=== PATIENT | male | born 1940 | race Caucasian/White ===

== ENCOUNTER → 2016-10-23 | Outpatient (CLI) | payer OTHER ==
[~2016-10-23] MED LIST: ADVIN25/60 INH; ASPCH81X PO; CEPH500C PO; DILT-115 PO; FRS/40 PO; GABA-113 PO; INSU70IN2 SC; IPRA1AER2 INH; LABE300T PO; MAGNESIUM PO; NTRGSL/4 UT; POTA10TA PO; SIMV40TA2 PO; SULF800T23 PO
[2016-10-23 15:01] LABS: BLOOD UREA NITROGEN 20 mg/dl (7-18); BUN/CREATININE RATIO 16.5 (10-20); CALCIUM 9.6 mg/dl (8.5-10.1); CARBON DIOXIDE 36 mmol/L (21-32); CHLORIDE 99 mmol/L (98-107); GLUCOSE 122 mg/dl (70-99); POTASSIUM 3.6 mmol/L (3.5-5.1); SODIUM 142 mmol/L (136-145)
[2016-10-23 15:06] LABS: ESTIMATED AVERAGE GLUCOSE 209 mg/dl; HA1C FLAG Normal (Normal)
== END | disposition home or self-care (01) ==
LOC: C.LABSPEC 14:38
PROVIDERS: ATTEND Internal Medicine
DX: E11.65 Type 2 diabetes mellitus with hyperglycemia (principal); I25.10 Atherosclerotic heart disease of native coronary artery without angina pectoris; I10 Essential (primary) hypertension

== ENCOUNTER → 2017-01-27 | Outpatient (CLI) | payer OTHER ==
[2017-01-27 12:45] LABS: HEMATOCRIT 44.4 % (42-52); MEAN CORPUSCULAR HEMOGLOBIN 28.3 pg (25-34); MEAN CORPUSCULAR HGB CONC 31.1 g/dl (32-36); MEAN PLATELET VOLUME 11.5 fL (7.4-10.4); PLATELET COUNT 231 K/uL (130-400); RED BLOOD COUNT 4.88 M/uL (4.7-6.1); WHITE BLOOD COUNT 8.29 K/uL (4.8-10.8)
[2017-01-27 13:04] LABS: ESTIMATED AVERAGE GLUCOSE 226 mg/dl; HA1C FLAG Normal (Normal)
[2017-01-27 13:41] LABS: ALT/SGPT 42 U/L (12-78); AST/SGOT 14 U/L (15-37); BLOOD UREA NITROGEN 17 mg/dl (7-18); CALCIUM 9.6 mg/dl (8.5-10.1); CARBON DIOXIDE 35 mmol/L (21-32); CHLORIDE 99 mmol/L (98-107); CHOLESTEROL 137 mg/dl (0-200); GLUCOSE 159 mg/dl (70-99); POTASSIUM 3.9 mmol/L (3.5-5.1); SODIUM 140 mmol/L (136-145); TRIGLYCERIDES 173 mg/dl (0-150); VERY LOW DENSITY LIPOPROT CALC 35 mg/dl
[2017-01-27 13:43] LABS: ALB/GLOB RATIO 0.9 (0.9-2); ALKALINE PHOSPHATASE 119 U/L (45-117); CHOLESTEROL/HDL RATIO 3.4; HDL CHOLESTEROL 40 mg/dl
== END | disposition home or self-care (01) ==
LOC: C.LABSPEC 12:25
PROVIDERS: ATTEND Internal Medicine
DX: I25.10 Atherosclerotic heart disease of native coronary artery without angina pectoris (principal); J44.9 Chronic obstructive pulmonary disease, unspecified; E11.65 Type 2 diabetes mellitus with hyperglycemia; E78.5 Hyperlipidemia, unspecified

== ENCOUNTER → 2017-03-12 | Outpatient (CLI) | payer OTHER ==
[2017-03-12 13:54] LABS: BLOOD UREA NITROGEN 35 mg/dl (7-18); BUN/CREATININE RATIO 23.5 (10-20); CALCIUM 9.7 mg/dl (8.5-10.1); CARBON DIOXIDE 33 mmol/L (21-32); CHLORIDE 94 mmol/L (98-107); GLUCOSE 427 mg/dl (70-99); SODIUM 135 mmol/L (136-145)
[2017-03-12 14:15] LABS: BETA-HYDROXYBUTYRATE 0.99 mg/dL (0.2-2.81)
== END | disposition home or self-care (01) ==
LOC: C.LABSPEC 12:21
PROVIDERS: ATTEND Internal Medicine
DX: R60.0 Localized edema (principal)

== ENCOUNTER → 2017-04-12 | Outpatient (CLI) | payer OTHER ==
[2017-04-12 18:28] LABS: HEMATOCRIT 43.2 % (42-52); MEAN CELL VOLUME 90.4 fL (80-100); MEAN CORPUSCULAR HEMOGLOBIN 27.8 pg (25-34); MEAN CORPUSCULAR HGB CONC 30.8 g/dl (32-36); MEAN PLATELET VOLUME 11.3 fL (7.4-10.4); PLATELET COUNT 255 K/uL (130-400); RED BLOOD COUNT 4.78 M/uL (4.7-6.1); WHITE BLOOD COUNT 8.58 K/uL (4.8-10.8)
[2017-04-12 18:33] LABS: BLOOD UREA NITROGEN 21 mg/dl (7-18); BUN/CREATININE RATIO 15.8 (10-20); CALCIUM 9.8 mg/dl (8.5-10.1); CARBON DIOXIDE 32 mmol/L (21-32); CHLORIDE 101 mmol/L (98-107); GLUCOSE 214 mg/dl (70-99); POTASSIUM 3.8 mmol/L (3.5-5.1); SODIUM 139 mmol/L (136-145)
[2017-04-12 18:34] LABS: INR 0.9 (0.9-1.1); PARTIAL THROMBOPLASTIN RATIO 1.1; PROTHROMBIN TIME (PATIENT) 10.1 SECONDS (9.0-12.0)
== END | disposition home or self-care (01) ==
LOC: C.LABSPEC 17:25
PROVIDERS: ATTEND Internal Medicine Interventional Cardiology
DX: Z01.818 Encounter for other preprocedural examination (principal)

== ENCOUNTER → 2017-04-20 | Outpatient (CLI) | payer OTHER ==
[~2017-04-20] MED LIST changes: -CEPH500C PO
--- NOTE | 2017-04-25 23:12 | PULMONARY FUNCTION TEST ---
SPIROMETRY Patient of Dr. Louis. Pre-bronchodilator spirometry reveals a severe obstructive ventilatory defect, even more pronounced with low lung volumes. There was no significant response to bronchodilator, but this should not preclude a therapeutic trial if clinically warranted. A concomitant restrictive ventilatory defect was also noted. Diffusion capacity when taken into account for the level of alveolar ventilation was well within normal limits. 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 Clinical correlation is needed. MTDD
== END | disposition home or self-care (01) ==
LOC: C.RC 10:40
PROVIDERS: ATTEND Internal Medicine Pulmonary Disease
DX: J44.9 Chronic obstructive pulmonary disease, unspecified (principal); R06.02 Shortness of breath; J98.4 Other disorders of lung

== ENCOUNTER → 2017-04-21 | Day surgery (SDC) | payer OTHER ==
[~2017-04-21] VITALS: Ht 181.6 cm; Wt 133.5 kg
[2017-04-21] VITALS (11 sets, daily range): BP systolic 119–136; BP diastolic 59–78; PULSE 48–65; TEMP 36.5–36.7; O2SAT 95–97; Ht 181.6 cm; Wt 133.5 kg
[~2017-04-21] MED LIST changes: +LIDOCAINE HCL 1% 20 ML VIAL INFIL ONE; +LIDOCAINE HCL 1% 20 ML VIAL ONE; +LIDOCAINE/EPINEPHRINE 1% INJ 50 ML VIAL ONE; +ORM MISCELLANEOUS MED XX ONE; +SODIUM CHLORIDE 0.9% 1000ML IV SCH
--- NOTE | 2017-04-21 09:58 | History & Physical Bridge Note ---
H&P Re-Evaluation Bridge Note: I have examined the patient, reviewed the History & Physical and in the interval since the performance of the History & Physical I have noted the following changes of clinical significance: No changes noted
--- NOTE | 2017-04-21 10:45 | Procedure Note ---
Pre-Mod Sedation Assessment General Date of Moderate Sedation: Apr 21, 2017. Vital Signs: Vital Signs Past 12 Hours Date Time Temp Pulse Resp B/P (MAP) Pulse Ox O2 Delivery O2 Flow Rate FiO2 04/21/17 09:59 36.7 60 22 136/70 (92) 97 Nasal Cannula 3 Review Cardiovascular: regular rate, rhythm, no edema Abdomen: normal bowel sounds, non tender Lungs: chest non-tender, lungs clear Airway Class: III Pre-Sedation Airway Assessment Oral Cavity: Dentures Able to Visualize Vocal Cords: No Short Thick Neck: Yes Hx of Sleep Apnea: No Smoking Status: Former Smoker Mallampati Classification: Class III ASA Classification: Class II Procedure Planning Contraindications-for Mod Sed: None Yes Notes The planned sedation has been discussed with the patient and consent obtained. I have identified the patient, determined the appropriateness of sedation and have assessed the patient immediately prior to the procedure. All medicine(s) and interventions are by my order.
--- NOTE | 2017-04-21 11:53 | Procedure Note ---
Post-Mod Sedation Assessment General Date of Moderate Sedation Apr 21, 2017. Vital Signs: Vital Signs Past 12 Hours Date Time Temp Pulse Resp B/P (MAP) Pulse Ox O2 Delivery O2 Flow Rate FiO2 04/21/17 11:50 52 20 121/71 96 Nasal Cannula 4.0 04/21/17 11:45 48 20 124/68 97 Nasal Cannula 4.0 04/21/17 11:40 53 17 133/78 95 Nasal Cannula 4.0 04/21/17 11:35 53 17 119/68 96 Nasal Cannula 4.0 04/21/17 11:30 51 18 121/59 97 Nasal Cannula 4.0 04/21/17 11:25 52 18 119/60 97 Nasal Cannula 4.0 04/21/17 11:20 50 16 123/62 96 Nasal Cannula 4.0 04/21/17 11:10 53 16 125/66 96 Nasal Cannula 4.0 04/21/17 10:55 36.7 60 22 136/70 97 Nasal Cannula 3.0 04/21/17 09:59 36.7 60 22 136/70 (92) 97 Nasal Cannula 3 Review - Discharge Criteria Vital Signs Stable: Yes Alert/Oriented/Conversant: Yes Returned to Baseline Mental St: Yes Nausea Absent/Minimal: Yes Pain/Discomfort/Absent/Minimal: Yes Normal/Baseline Respirations: Yes Active Bleeding?: No Pt Received D/C Instructions: Yes Prescriptions Given: None Specific Proced. D/C Criteria Distal Pulses Present (Cardiac: N/A Groin site assessed-Card Cath: N/A Voided Prior To Discharge: N/A Discharged Patients Adult Escort/Transportation: Yes
--- NOTE | 2017-04-21 11:56 | [facility] Operative Report ---
Operative Report Operative Date Apr 21, 2017. Pre-Operative Diagnosis Venous Insufficiency Post-Operative Diagnosis Same Procedure(s) Performed Right Leg Greater Saphenous Vein Radiofrequency Ablation Surgeon Jeyson Signing Teacher Surgeon(s) None Estimated Blood Loss 5 Findings Dilated right GSV Specimens None Drains None Anesthesia Local Complication(s) None Disposition Recovery Room / PACU Indications Venous insufficiency, Venous ulcers Description of Procedure US guided access Right GSV below the knee. Catheter inserted, 3cm from SFJ. Tumescent injected. US confirmed not in deep system. 4:20, 13 cycles of RFA right GSV. No complications. Patient tolerated well. US confirmed no DVT post procedure. I attest to the content of the Intraoperative Record and any orders documented therein. Any exceptions are noted below.
--- NOTE | 2017-04-21 12:00 | Discharge Instructions ---
Discharge Instructions Procedure Procedure Date: Apr 21, 2017. Reason for Visit: Venous Ulcer Right Leg. Discharge Discharge Date: Apr 21, 2017. Discharge Diagnosis: Venous insufficiency, Venous Ulcer Last Recorded Wt (Kilograms): 133.5 Anesthesia Post Anesthesia Instructions: If you have had General Anesthesia or IV Sedation: * Do not drive today. * Resume driving when surgeon permits. * Do not make important decisions or sign legal documents today. * Call surgeon for: 1. Temperature elevations greater than 101 degrees F. 2. Uncontrollable pain. 3. Excessive bleeding. 4. Persistent nausea and vomiting. 5. Medication intolerance (nausea, vomiting or rash). * For nausea and vomiting use only clear liquids such as: tea, soda, bouillon until nausea subsides, then gradually increase diet as tolerated. * If you have any concerns or questions, call your surgeon's office. If physician is unavailable and it is an emergency, call 911 or go to the nearest emergency room. Instructions Activity Recommendations: limitations as noted below Recommended Home Diet: resume previous diet Allergies: Coded Allergies: Penicillins (Verified Allergy, Unknown, RASH, 04/21/17) Follow Up Additional Instructions: Follow instructions as outlined in paperwork from Dr. Benítez' office. No change to current medications. ANGELA wrap until Wednesday or seen by wound clinic. Then resume prior wound clinic dressing and/or compression stockings. Follow up Ultrasound as scheduled. Any severe pain, present to the emergency room concerned about DVT. Follow-up with: As scheduled David Lipscomb Recommendations: Call your doctor if: * Temperature above 101 degrees * Pain not relieved by pain medicine ordered * There is increased drainage or redness from any incision * You have any unanswered questions or concerns. Your Doctors Instructions noted above were prepared by provider Ge Benítez. Patient Signature Section: Patient Instructions Signature Page Mario Munoz Patient (or Guardian) Signature/Date: I have read and understand the instructions given to me by my caregivers. Caregiver/RN/Doctor Signature/Date: The above-named patient and/or guardian has received patient instructions on this date. + Original Patient Signature Page (only) stays with chart. Please make copy for patient.
== END | disposition home or self-care (01) ==
LOC: C.ACU 09:09
PROVIDERS: ATTEND Internal Medicine Interventional Cardiology
DX: I87.2 Venous insufficiency (chronic) (peripheral) (principal); I87.8 Other specified disorders of veins; J44.9 Chronic obstructive pulmonary disease, unspecified; I27.2 Other secondary pulmonary hypertension; I10 Essential (primary) hypertension; I48.0 Paroxysmal atrial fibrillation; I25.10 Atherosclerotic heart disease of native coronary artery without angina pectoris; E11.9 Type 2 diabetes mellitus without complications; Z99.81 Dependence on supplemental oxygen; Z79.84 Long term (current) use of oral hypoglycemic drugs; Z87.891 Personal history of nicotine dependence; Z79.82 Long term (current) use of aspirin; Z79.899 Other long term (current) drug therapy; Z79.4 Long term (current) use of insulin

== ENCOUNTER → 2017-05-14 | Outpatient (CLI) | payer OTHER ==
[~2017-05-14] MED LIST changes: -LIDOCAINE HCL 1% 20 ML VIAL INFIL ONE; -LIDOCAINE HCL 1% 20 ML VIAL ONE; -LIDOCAINE/EPINEPHRINE 1% INJ 50 ML VIAL ONE; +OPTIRAY 320 IV PRN; -ORM MISCELLANEOUS MED XX ONE; -SODIUM CHLORIDE 0.9% 1000ML IV SCH; -SULF800T23 PO
--- NOTE | 2017-05-14 14:55 | DIAGNOSTIC IMAGING REPORT ---
CT OF THE CHEST WITH IV CONTRAST CLINICAL HISTORY: Chronic obstructive pulmonary disease. Pulmonary hypertension. COMPARISON STUDY: Chest CT December 01, 2014 and chest radiograph January 03, 2016. TECHNIQUE: Following IV administration of 93 mL of [id number]-[id number], helical axial images of the chest were obtained. Sagittal and coronal reconstructions were viewed as well as maximal intensity projections on an independent 3-D workstation. A dose lowering technique was utilized adhering to the principles of ALARA. CT DOSE: 741.99 mGycm FINDINGS: The heart is mildly enlarged. Extensive coronary artery calcification is present. There is no pericardial effusion. A large heavily calcified subcarinal lymph node is similar to prior exams. This results in severe narrowing of the right lower lobe bronchus which is unchanged. A small right pleural effusion with pleural thickening is likely chronic. This is similar to prior CT of December 01, 2014. A subpleural right lower lobe airspace opacity with volume loss is unchanged and reflects round atelectasis. Dense right pleural calcification is present. A trace left pleural effusion with left pleural thickening and associated calcifications is noted. This pleural effusion has decreased in size since exam of December 01, 2014. Linear left upper lobe opacities are consistent with scarring. There is no consolidation to suggest pneumonia. There are no suspicious pulmonary nodules. Bony thorax and upper abdomen are unremarkable. Note is made of bilateral gynecomastia. IMPRESSION: 1. Small right and trace left pleural effusions which are likely chronic. Right lower lobe subpleural opacity with volume loss consistent with round atelectasis. 2. No change in a large heavily calcified subcarinal lymph node which results in severe narrowing of the right lower lobe bronchus which is unchanged since prior exams. 3. Mild cardiomegaly and extensive coronary artery calcification. 4. No acute intrathoracic findings. Electronically signed by: Maikel Chen M.D. 05/14/2017 2:53 PM Dictated Date/Time: 05/14/2017 2:43 PM
== END | disposition home or self-care (01) ==
LOC: C.CTS 14:10
PROVIDERS: ATTEND Internal Medicine Pulmonary Disease
DX: J44.9 Chronic obstructive pulmonary disease, unspecified (principal); I27.20 Pulmonary hypertension, unspecified; J90 Pleural effusion, not elsewhere classified; R91.8 Other nonspecific abnormal finding of lung field; I51.7 Cardiomegaly

== ENCOUNTER → 2017-06-14 | Outpatient (CLI) | payer OTHER ==
[~2017-06-14] MED LIST changes: +DOXY100C76 PO; -IPRA1AER2 INH; -OPTIRAY 320 IV PRN
[2017-06-14 15:59] LABS: BLOOD UREA NITROGEN 29 mg/dl (7-18); BUN/CREATININE RATIO 21.2 (10-20); CALCIUM 10.2 mg/dl (8.5-10.1); CARBON DIOXIDE 39 mmol/L (21-32); CHLORIDE 91 mmol/L (98-107); CREATININE 1.35 mg/dl (0.60-1.40); GLUCOSE 273 mg/dl (70-99); POTASSIUM 3.2 mmol/L (3.5-5.1); SODIUM 137 mmol/L (136-145)
== END | disposition home or self-care (01) ==
LOC: C.LABSPEC 15:24
PROVIDERS: ATTEND Internal Medicine
DX: R60.0 Localized edema (principal)

== ENCOUNTER → 2017-08-25 | Outpatient (CLI) | payer OTHER ==
[2017-08-25 13:40] LABS: BASO % 0.5 %; BASO ABS # 0.04 K/uL (0-0.2); EOS % 4.5 %; EOS ABS # 0.38 K/uL (0-0.5); HEMATOCRIT 44.8 % (42-52); HEMOGLOBIN 14.1 g/dL (14.0-18.0); IG# 0.06 K/uL (0.00-0.02); LYMPH % 14.2 %; LYMPH ABS # 1.21 K/uL (1.2-3.4); MEAN CELL VOLUME 91.4 fL (80-100); MEAN CORPUSCULAR HEMOGLOBIN 28.8 pg (25-34); MEAN CORPUSCULAR HGB CONC 31.5 g/dl (32-36); MEAN PLATELET VOLUME 11.6 fL (7.4-10.4); MONO % 10.1 %; MONO ABS # 0.86 K/uL (0.11-0.59); NEUT ABS # 5.96 K/uL (1.4-6.5); PLATELET COUNT 222 K/uL (130-400); RED CELL DISTRIBUTION WIDTH CV 14.8 % (11.5-14.5); RED CELL DISTRIBUTION WIDTH SD 49.6 fL (36.4-46.3); WHITE BLOOD COUNT 8.51 K/uL (4.8-10.8)
[2017-08-25 13:55] LABS: HEMOGLOBIN A1C 9.8 % (4.5-5.6)
[2017-08-25 14:33] LABS: ALBUMIN 3.5 gm/dl (3.4-5.0); ALT/SGPT 25 U/L (12-78); AST/SGOT 16 U/L (15-37); BLOOD UREA NITROGEN 21 mg/dl (7-18); CARBON DIOXIDE 37 mmol/L (21-32); CREATININE 1.26 mg/dl (0.60-1.40); GLUCOSE 141 mg/dl (70-99); POTASSIUM 3.6 mmol/L (3.5-5.1); SODIUM 138 mmol/L (136-145)
[2017-08-25 14:37] LABS: ALKALINE PHOSPHATASE 99 U/L (45-117); CHOLESTEROL 126 mg/dl (0-200); LDL CHOLESTEROL (DIRECT) 70 mg/dl; TOTAL PROTEIN 7.8 gm/dl (6.4-8.2)
== END | disposition home or self-care (01) ==
LOC: C.LABSPEC 12:41
PROVIDERS: ATTEND Internal Medicine
DX: I25.10 Atherosclerotic heart disease of native coronary artery without angina pectoris (principal); I10 Essential (primary) hypertension; E78.5 Hyperlipidemia, unspecified; E11.65 Type 2 diabetes mellitus with hyperglycemia

== ENCOUNTER → 2017-11-04 | Outpatient (CLI) | payer OTHER | END | disposition home or self-care (01) | LOC: C.LAB 14:04 | PROVIDERS: ATTEND Internal Medicine Pulmonary Disease | DX: I51.9 Heart disease, unspecified (principal); J44.9 Chronic obstructive pulmonary disease, unspecified ==

== ENCOUNTER 2019-04-21 15:19 | Observation (INO) ==
[2019-04-21] MEDS ORDERED: SODIUM CHLORIDE 0.9% 1000ML 500 ML IV ONE (16:33)
--- NOTE | 2019-04-21 16:43 | XRay Report ---
XR chest 1V portable CLINICAL HISTORY: 78 years-old Male presenting with sob. TECHNIQUE: Portable upright AP view of the chest was obtained. COMPARISON: 07/27/2018. FINDINGS: Atherosclerosis of the aortic arch. Cardiac silhouette enlarged. Pulmonary vascular prominence simila r to prior exam. Scattered linear opacities may represent interstitial thickening. Vague added densit y in the mid to lower lungs. Trace pleural effusions may be present. No large pneumothorax. Degenerat aurea changes of the thoracic spine. Upper abdomen normal. IMPRESSION: 1. Cardiomegaly with volume overload and congestive change. 2. Mid to basilar added density is in part chronic and may represent scarring though developing pulm onary edema is difficult to exclude. 3. Trace bilateral pleural effusions. Electronically signed by: Alexis Diehl M.D. 04/21/2019 4:41 PM
[2019-04-21 17:43] LABS: Troponin I < 0.015 ng/ml (0-0.045)
[2019-04-21 18:07] LABS: Appearance Urine Clear (Clear); Bilirubin Urine Negative (Negative); Blood Urine Negative (Negative); Color Urine Yellow; Glucose Urine UA Negative (Negative); Ketones Urine Negative (Negative); Leukocyte Esterase Urine Negative (Negative); Nitrite Urine Negative (Negative); Protein Urine Negative (Negative); Specific Gravity Urine 1.012 (1.000-1.030); Urobilinogen Urine Negative (Negative); pH Urine 6.5 (4.5-7.5)
--- NOTE | 2019-04-21 18:15 | CT Scan Report ---
CT head/brain wo con CLINICAL HISTORY: 78 years-old Male presenting with slurred speech. TECHNIQUE: Multidetector CT imaging of the head was performed without the use of intravenous contrast . IV contrast: None. One or more dose lowering techniques were used consistent with the principles of ALARA (as low as reasonably achievable), including automatic exposure control, mA or kV adjustment t o individual patient size, and/or use of iterative reconstruction. COMPARISON: 01/05/2019. CT DOSE (mGy.cm): The estimated cumulative dose is 614.27 mGy.cm. 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 Ventricles and sulci normal in size. No hemorrhage. Brain parenchyma normal in appearance with preser dev mcnair-white differentiation. No acute territorial infarct. No mass effect or midline shift. No ext ra-axial fluid collection. Polypoid mucosal thickening in the right maxillary sinus. Calvarium intact . IMPRESSION: 1. No acute intracranial abnormality. Electronically signed by: Alexis Diehl M.D. 04/21/2019 6:13 PM
--- NOTE | 2019-04-21 19:45 | Emergency Department Note ---
Entered by Edith Abarca acting as a scribe for Trina Brar DO History of Present Illness General Chief complaint: Vertigo Stated complaint: WEAK Time Seen by Provider: 04/21/19 15:41 Source: patient and friends History of Present Illness Onset (ago): hour(s) (3) Location: head (general) Pain Consistency: + now resolved Quality: + other (confusion and trouble speaking) Associated symptoms: + denies other symptoms (diarrhea, numbness, tingling, ); no headaches and no nausea/vomiting The patient is a 78 year old male who presents to the Emergency Room with complaints of confusion and trouble speaking beginning 3 hours ago. The patient's friend states the patient was talking incoherently talking, slurring his speech, and jumping from one topic to another randomly. He states the patient's confusion and trouble speaking have mostly resolved. The patient reports shortness of breath and weakness in his extremities. He denies nausea, vomiting, diarrhea, numbness, tingling, and headache. The patient's friend st ates the patient had blood work done this morning that resulted in the patient not eating or taking his insulin as usual this morning. He states the patient ate and took his insulin after returning home. The patient's friend reports he then took the patient to the burn center to treat the patient's legs when the confusion and speaking problems began. He notes the burn center stated the patient's glucose was at 30, and they were able to very slowly raise it to 90. The patient's friend states the patient has a history of diabetes, but he has not been following his diet. He states the patient visited his PCP yesterday to change his insulin dosage. The patient's friend states the patient has excessive sweating during drops in blood sugar, but no nausea. The patient's friend notes the patient has a history of a-fib, and short term memory loss for the past year. The patient denies any history of stroke. Home Medications Home Medications Medication Instructions Recorded Confirmed Type aspirin 81 mg tablet,delayed 81 mg PO DAILY 07/20/18 04/21/19 History release diltiazem ER 240 mg capsule,24 240 mg PO DAILY 07/20/18 04/21/19 History hr,extended release furosemide 40 mg tablet 80 mg PO BID tab 07/20/18 04/21/19 History gabapentin 300 mg capsule 300 mg PO TID 07/20/18 04/21/19 History insulin human U-100 NPH-regulr 65 units SQ QPM ml 07/20/18 04/21/19 History 70-30 mix 100 unit/mL subcutaneous susp labetalol 300 mg tablet 300 mg PO BID 07/20/18 04/21/19 History potassium chloride ER 10 mEq 10 meq PO DAILY 07/20/18 04/21/19 History tablet,extended release simvastatin 40 mg tablet 40 mg PO QPM 07/20/18 04/21/19 History insulin human U-100 NPH-regulr 85 units SQ QAM ml 03/15/19 04/21/19 History 70-30 mix 100 unit/mL subcutaneous susp spironolactone 25 mg tablet 25 mg PO DAILY 03/15/19 04/21/19 History acetaminophen [Tylenol Extra 1,500 mg PO Q6H PRN 04/21/19 04/21/19 History Strength] Allergies Allergy/AdvReac Type Severity Reaction Status Date / Time Penicillins Allergy Unknown RASH Verified 04/21/19 18:08 Past Med/Surg History Medical History Chronic venous insufficiency (Chronic) Venous stasis ulcers of both lower extremities (Acute) IDDM (insulin dependent diabetes mellitus) (Chronic 09/19/13) Stenosis, spinal, lumbar (Chronic 09/19/13) Obesity (Chronic 09/19/13) Hypertension associated with diabetes (Chronic 09/19/13) 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) Hyperlipidemia (Chronic) New onset atrial fibrillation (Acute) Hypomagnesemia (Acute) CHF (congestive heart failure) (Resolved) Cardiac dysrhythmia (Acute) Deep vein thrombosis (Acute) Edema (Acute) Hypoxia (Acute) Pleural effusion, left (Acute) SOB (shortness of breath) (Acute) Arthritis (Chronic) COPD (chronic obstructive pulmonary disease) (Chronic) Diabetes (Chronic) H/O: pneumothorax (Chronic) Hypertension (Chronic) Other specified cardiac arrhythmias (Chronic) Surgical History History of back surgery (Resolved) H/O carpal tunnel repair (Resolved) History of shoulder surgery (Resolved) Previous back surgery (Resolved) Family History Other Diabetes Heart disease Hypertension Social History Preferred Language: [place] Communication Ability: Effective Visual Impairment: No Limitations Hearing Ability: Normal Bureau Director Required: No Beliefs That Will Affect Care: None marital status: Current Living Situation: Spouse current occupational status: retired Other Information That Helps Us Care for You: No Feels Safe at Home: Yes Safety Concerns: Feels Safe At This Time Smoking Status: Former smoker Do You Dip or Chew Tobacco: No ; Hx Alcohol Use: No Hx Substance Use: No Review of Systems See HPI for pertinent positives & negatives. and A total of 10 systems reviewed and were otherwise negative Physical Exam Vital Signs Vital Signs - 24 hr 04/21/19 15:31 04/21/19 15:49 04/21/19 16:00 Temperature 36.4 C L Temperature Source Oral Sepsis Recent Fever Within 48 Hours No Sepsis New/Unexplained Change in Mental Status Yes Sepsis Action Taken by Nursing No Action Required Pulse Rate 54 L 56 L 54 L Pulse Rate from SpO2 Sensor Respiratory Rate 20 17 18 Blood Pressure 109/59 L Blood Pressure Mean 75 Blood Pressure Position Sitting Pulse Oximetry 90 Oxygen Delivery Method Nasal Cannula Oxygen Flow Rate 4 04/21/19 16:30 04/21/19 17:00 04/21/19 17:30 Temperature Temperature Source Sepsis Recent Fever Within 48 Hours Sepsis New/Unexplained Change in Mental Status Sepsis Action Taken by Nursing Pulse Rate 55 L 54 L 54 L Pulse Rate from SpO2 Sensor Respiratory Rate 26 H 19 19 Blood Pressure Blood Pressure Mean Blood Pressure Position Pulse Oximetry Oxygen Delivery Method Oxygen Flow Rate 04/21/19 18:49 04/21/19 18:50 04/21/19 19:00 Temperature Temperature Source Sepsis Recent Fever Within 48 Hours Sepsis New/Unexplained Change in Mental Status Sepsis Action Taken by Nursing Pulse Rate 52 L 55 L 55 L Pulse Rate from SpO2 Sensor 55 L 53 L Respiratory Rate 20 16 21 Blood Pressure 124/68 135/62 Blood Pressure Mean 86 86 Blood Pressure Position Pulse Oximetry 85 L 85 L Oxygen Delivery Method Oxygen Flow Rate GENERAL: alert, well appearing, well nourished, no distress, non-toxic, obese EYE EXAM: normal conjunctiva, PERRL and EOM's grossly intact OROPHARYNX: no exudate, no erythema, lips, buccal mucosa, and tongue normal and mucous membranes are moist NECK: supple, no nuchal rigidity, no adenopathy, non-tender LUNGS: Clear to auscultation. Normal chest wall mechanics, no w/r/r HEART: no murmurs, S1 normal and S2 normal ABDOMEN: abdomen soft, non-tender, normo-active bowel sounds, no masses, no rebound or guarding. BACK: Back is symmetrical on inspection and there is no deformity, no midline tenderness, no CVA tenderness. SKIN: no rashes and no bruising UPPER EXTREMITIES: upper extremities are grossly normal. FROM, nml pulses b/l. LOWER EXTREMITIES: No pitting edema. Bilateral lower extremities with dressing and wraps in place from wound care. NEURO EXAM: No facial droop. NIH Stroke score of 0. Normal sensorium, cranial nerves II-XII grossly intact, normal speech, no gross weakness of arms, no gross weakness of legs. No drift. Finger to nose intact. Gross sensation intact. Course 1543: Past medical records reviewed. The patient was evaluated in room C03 by the medical student under my supervision. A complete history and physical exam was performed. 163: Past medical records reviewed. The patient was evaluated in room C03 by me. A complete history and physical exam was performed. 1829: Patient's blood sugar level dropped to the 40s. Patient was given some food and drink. 2002: Upon reevaluation, I discussed findings and results with the patient. The patient verbalized agreement of the treatment plan. I spoke with Dr. Toyin swenson of the [facility] Hospitalist Service. The patient will be evaluated for further management and care. Administered Medications Acetaminophen (Tylenol) 650 mg PO Q4H PRN PRN Reason: Pain or Fever Stop: 05/21/19 22:00 Last Admin: 04/22/19 05:50 Dose: 650 mg Documented by: [id number] Aspirin (Ecotrin Ectab) 81 mg PO DAILY [facility] Stop: 05/22/19 08:59 Last Admin: 04/22/19 08:04 Dose: 81 mg Documented by: [id number] Diltiazem HCl (Dilacor Xr) 240 mg PO DAILY [facility] Stop: 05/22/19 08:59 Last Admin: 04/22/19 08:05 Dose: 240 mg Documented by: [id number] Furosemide (Lasix) 80 mg PO BID [facility] Stop: 05/21/19 22:00 Last Admin: 04/22/19 20:27 Dose: 80 mg Documented by: [id number] Admin: 04/22/19 08:03 Dose: 80 mg Documented by: [id number] Admin: 04/21/19 23:23 Dose: 80 mg Documented by: [id number] Gabapentin (Neurontin) 300 mg PO TID [facility] Stop: 05/21/19 22:00 Last Admin: 04/22/19 20:28 Dose: 300 mg Documented by: [id number] Admin: 04/22/19 15:05 Dose: 300 mg Documented by: [id number] Admin: 04/22/19 08:04 Dose: 300 mg Documented by: [id number] Admin: 04/21/19 23:24 Dose: 300 mg Documented by: [id number] Heparin Sodium (Porcine) (Heparin Sodium (Porcine)) 5,000 units SQ Q8 [facility] Stop: 05/21/19 22:00 Last Admin: 04/22/19 21:39 Dose: 5,000 units Documented by: [id number] Cosigned by: [id number] Admin: 04/22/19 15:05 Dose: 5,000 units Documented by: [id number] Cosigned by: [id number] Admin: 04/22/19 05:44 Dose: 5,000 units Documented by: [id number] Cosigned by: [id number] Admin: 04/21/19 23:22 Dose: 5,000 units Documented by: [id number] Cosigned by: [id number] Insulin Aspart (Novolog Flexpen) 0 units SC ACHS [facility] Stop: 05/21/19 22:00 Last Admin: 04/22/19 20:26 Dose: 2 units Documented by: [id number] Cosigned by: [id number] Admin: 04/22/19 17:38 Dose: 7 units Documented by: [id number] Cosigned by: [id number] Admin: 04/22/19 12:08 Dose: 8 units Documented by: [id number] Cosigned by: [id number] Admin: 04/22/19 08:09 Dose: 2 units Documented by: [id number] Cosigned by: [id number] Admin: 04/21/19 23:27 Dose: Not Given Documented by: [id number] Cosigned by: [id number] Insulin Human NPH (Novolin N Nph) 17 units SC QDB [facility] Stop: 05/22/19 09:29 Last Admin: 04/22/19 10:00 Dose: 17 units Documented by: [id number] Cosigned by: [id number] Insulin Human NPH (Novolin N Nph) 0 units SC QDD [facility]; Protocol Stop: 05/22/19 16:29 Last Admin: 04/22/19 17:40 Dose: 17 units Documented by: [id number] Cosigned by: [id number] Labetalol HCl (Normodyne) 300 mg PO BID [facility] Stop: 05/21/19 22:00 Last Admin: 04/22/19 20:29 Dose: Not Given Documented by: [id number] Admin: 04/22/19 08:04 Dose: 300 mg Documented by: [id number] Admin: 04/21/19 23:26 Dose: Not Given Documented by: [id number] Potassium Chloride (Klor-Con M10) 10 meq PO DAILY [facility] Stop: 05/22/19 08:59 Last Admin: 04/22/19 08:03 Dose: 10 meq Documented by: [id number] Simvastatin (Zocor) 40 mg PO QPM [facility] Stop: 05/21/19 22:00 Last Admin: 04/22/19 20:31 Dose: 40 mg Documented by: [id number] Admin: 04/21/19 23:35 Dose: 40 mg Documented by: [id number] Spironolactone (Aldactone) 25 mg PO DAILY [facility] Stop: 05/22/19 08:59 Last Admin: 04/22/19 08:05 Dose: 25 mg Documented by: [id number] Discontinued Medications Sodium Chloride (Nss 1000ml) 500 mls @ 999 mls/hr IV .Q31M ONE Stop: 04/21/19 17:03 Last Infusion: 04/21/19 17:57 Dose: 0 mls/hr Documented by: [id number] Admin: 04/21/19 17:20 Dose: 999 mls/hr Documented by: [id number] Insulin Human Isoph/Insulin Regular (Novolin 70/30 Regular) 50 units SQ QDB [facility] Stop: 05/22/19 07:29 Last Admin: 04/22/19 07:58 Dose: Not Given Documented by: [id number] Medical Decision Making Differential Diagnosis Differential Diagnosis includes but is not limited to dehydration, stroke, anemia, hypoglycemia, hyponatremia, hypernatremia, urinary tract infection, pneumonia, bronchitis, sepsis, gastroenteritis, additional abdominal pathology, metabolic abnormalities and infections. Medical Records Attestation: I reviewed the patient's medical records. Home Medications Current Medication List: was personally reviewed by me Laboratory Data Attestation: I reviewed the patient's lab results. Result diagrams: 04/22/19 09:14 04/22/19 09:14 Lab Results 04/21/19 04/21/19 04/21/19 Range/Units 16:53 16:53 17:40 POC Glucose (70-99) Troponin I < 0.015 (0-0.045) ng/ml NT-Pro-B Natriuret Pep 343 (0-1800) pg/ml TSH 2.670 (0.300-4.500) uIu/ml Urine Color Yellow Urine Appearance Clear (Clear) Urine pH 6.5 (4.5-7.5) Ur Specific Ripton 1.012 (1.000-1.030) Urine Protein Negative (Negative) Urine Glucose (UA) Negative (Negative) Urine Ketones Negative (Negative) Urine Blood Negative (Negative) Urine Nitrite Negative (Negative) Urine Bilirubin Negative (Negative) Urine Urobilinogen Negative (Negative) Ur Leukocyte Esterase Negative (Negative) 04/21/19 04/21/19 04/21/19 Range/Units 18:18 18:20 19:13 POC Glucose 42 L* 41 L* 87 (70-99) Troponin I (0-0.045) ng/ml NT-Pro-B Natriuret Pep (0-1800) pg/ml TSH (0.300-4.500) uIu/ml Urine Color Urine Appearance (Clear) Urine pH (4.5-7.5) Ur Specific Ripton (1.000-1.030) Urine Protein (Negative) Urine Glucose (UA) (Negative) Urine Ketones (Negative) Urine Blood (Negative) Urine Nitrite (Negative) Urine Bilirubin (Negative) Urine Urobilinogen (Negative) Ur Leukocyte Esterase (Negative) Imaging Data Radiologist's Impression: Radiology results as stated below per my review and the radiologist's interpretation: XR chest 1V portable CLINICAL HISTORY: 78 years-old Male presenting with sob. TECHNIQUE: Portable upright AP view of the chest was obtained. COMPARISON: 07/27/2018. FINDINGS: Atherosclerosis of the aortic arch. Cardiac silhouette enlarged. Pulmonary vascular prominence similar to prior exam. Scattered linear opacities may represent interstitial thickening. Vague added density in the mid to lower lungs. Trace pleural effusions may be present. No large pneumothorax. Degenerative changes of the thoracic spine. Upper abdomen normal. IMPRESSION: 1. Cardiomegaly with volume overload and congestive change. 2. Mid to basilar added density is in part chronic and may represent scarring though developing pulmonary edema is difficult to exclude. 3. Trace bilateral pleural effusions. Electronically signed by: Alexis Diehl M.D. 04/21/2019 4:[address] head/brain wo con CLINICAL HISTORY: 78 years-old Male presenting with slurred speech. TECHNIQUE: Multidetector CT imaging of the head was performed without the use of intravenous contrast. IV contrast: None. One or more dose lowering techniques were used consistent with the principles of ALARA (as low as reasonably achievable), including automatic exposure control, mA or kV adjustment to individual patient size, and/or use of iterative reconstruction. COMPARISON: 01/05/2019. CT DOSE (mGy.cm): The estimated cumulative dose is 614.27 mGy.cm. FINDINGS: Program Management Manager topogram: Unremarkable. Ventricles and sulci normal in size. No hemorrhage. Brain parenchyma normal in appearance with preserved mcnair-white differentiation. No acute territorial infarct. No mass effect or midline shift. No extra-axial fluid collection. Polypoid mucosal thickening in the right maxillary sinus. Calvarium intact. IMPRESSION: 1. No acute intracranial abnormality. Electronically signed by: Alexis Diehl M.D. 04/21/2019 6:13 PM ECG Data Attestation: I personally reviewed and interpreted this ECG as follows: Indication: other (dizziness) Rate (beats per minute): 57 Rhythm: sinus bradycardia Findings: + other (normal axis, normal intervals, ); no PAC, no PVC, no acute ischemic change, no left axis deviation, no prolonged QT and no ectopy Blood Pressure Blood Pressure Findings: Elevated blood pressure Blood Pressure Disposition: further management by hospitalist [facility] Narrative Patient here following episode of confusion and dysarthria that did not seem to correlate with a previous episode of low blood sugar. Patient is a known diabetic and is noncompliant with a diabetic diet. No recent change in his insulin dosing. Friend at bedside states he does seem back to normal now, and has no prior history of stroke. Patient does have multiple risk factors for stroke. And had recurrent episodes of hypoglycemia while here in the emergency room. Patient's other labs reassuring, CT of the head unremarkable and patient remained hemodynamically stable. Patient had no focal neuro deficits here, no recurrence of confusion or dysarthria while here. Case discussed with hospitalist for additional evaluation and mgmt. No evidence of DKA/HHNK. I do not suspect occult infection at this time. Impression & Plan Hypoglycemia, Dysarthria, Transient confusion, Non-compliance Discharge Plan Visit Data *Final* Discharge Date/Time: 04/21/19 21:20 Chief Complaint: Vertigo Stated Complaint: WEAK ED Provider: Trina Brar Discharge Problem: Hypoglycemia, Dysarthria, Transient confusion, Non-compliance Patient Disposition: Admitted As Inpatient Condition: Fair Discharge Instructions Interventions: ED Discharge Assessment Last Done: 04/21/19 21:20 The scribe's documentation has been prepared under my direction and personally reviewed by me in its entirety. I confirm that the note above accurately reflects all work, treatment, procedures, and medical decision making performed by me.
[2019-04-21] MEDS ORDERED: MAGNESIUM HYDROXIDE SUSP 30 ML UDC PO PRN (22:01)
[2019-04-21] MEDS ORDERED: DEXTROSE 50% 50 ML SYRINGE IV PRN (22:01)
[2019-04-21] MEDS ORDERED: GLUCAGON FOR INJ 1 MG VIAL SQ PRN (22:01)
[2019-04-21] MEDS ORDERED: GLUCOSE 10 TABS/TUBE PO PRN (22:01)
[2019-04-21] MEDS ORDERED: ALUMINUM/MAGNESIUM SUSP 30 ML UDC PO PRN (22:01)
[2019-04-21] MEDS ORDERED: CARBOHYDRATES FOR HYPOGLYCEMIA PO PRN (22:01)
[2019-04-21] MEDS ORDERED: POLYETHYLENE (MIRALAX) 17 GM PACK PO PRN (22:01)
[2019-04-21] MEDS ORDERED: ACETAMINOPHEN 325 MG TAB PO PRN (22:01)
[2019-04-21] MEDS ORDERED: ONDANSETRON INJ 2 MG/ML 2 ML VIAL IV PRN (22:01)
[2019-04-21] MEDS ORDERED: GLUCOSE 40% GEL 15 GM TUBE PO PRN (22:01)
--- NOTE | 2019-04-21 22:11 | History & Physical Report ---
Date of Service April 21, 2019 Assessment & Plan (1) Transient confusion: Patient symptoms of confusion, slurred speech, etc. were likely related to hypoglycemia. Unclear at this time why his blood sugar remained as low as it did not to the 40s. He will have to be monitored closely as inpatient and outpatient verified correct administration of medications. Present on Admission?: Yes (2) Hypoglycemia: As above. Present on Admission?: Yes (3) IDDM (insulin dependent diabetes mellitus): We will adjust his current insulin dosing due to severe hypoglycemia he came into the hospital with. Decrease a.m. Novolin 70/30 to 50 units subcu and decrease dinnertime Novolin 70/30 to 40 units. Placed on Accu-Cheks before meals and at bedtime with NovoLog coverage per scale Check hemoglobin A1c Present on Admission?: Yes (4) Chronic venous insufficiency: Continue furosemide 80 mg p.o. twice daily Present on Admission?: Yes (5) Hyperlipidemia: Continue simvastatin 40 mg in evening Present on Admission?: Yes (6) Hypertension: Continue labetalol 300 mg p.o. twice daily, diltiazem CD 240 mg p.o. daily, Spironolactone 25 mg p.o. daily, Klor-Con 10 mEq daily and furosemide 80 mg p.o. twice daily. Present on Admission?: Yes (7) Peripheral neuropathy: Continue gabapentin 300 mg p.o. 3 times daily Present on Admission?: Yes (8) Asthma: Continue usual inhalers Present on Admission?: Yes History of Present Illness Chief Complaint: The patient presents to the emergency department with complaint of an episode of confusion and difficulty speaking that had resolved by the time of arrival to the ED. Primary Care Provider: Giorgio Louis MD The patient is a 78-year-old male who presents to the emergency department with complaint of confusion, difficulty speaking, talking incoherently with some slurring of speech that began about 3 hours prior to arrival. Per the ED staff, his symptoms were resolved by the time he arrived. The patient did also report that his breathing was somewhat more short of breath than his baseline. Allergies Allergy/AdvReac Type Severity Reaction Status Date / Time Penicillins Allergy Unknown RASH Verified 04/21/19 18:08 Home Medications Home Medications Medication Instructions Recorded Confirmed Type aspirin 81 mg tablet,delayed 81 mg PO DAILY 07/20/18 04/21/19 History release diltiazem ER 240 mg capsule,24 240 mg PO DAILY 07/20/18 04/21/19 History hr,extended release furosemide 40 mg tablet 80 mg PO BID tab 07/20/18 04/21/19 History gabapentin 300 mg capsule 300 mg PO TID 07/20/18 04/21/19 History insulin human U-100 NPH-regulr 65 units SQ QPM ml 07/20/18 04/21/19 History 70-30 mix 100 unit/mL subcutaneous susp labetalol 300 mg tablet 300 mg PO BID 07/20/18 04/21/19 History potassium chloride ER 10 mEq 10 meq PO DAILY 07/20/18 04/21/19 History tablet,extended release simvastatin 40 mg tablet 40 mg PO QPM 07/20/18 04/21/19 History insulin human U-100 NPH-regulr 85 units SQ QAM ml 03/15/19 04/21/19 History 70-30 mix 100 unit/mL subcutaneous susp spironolactone 25 mg tablet 25 mg PO DAILY 03/15/19 04/21/19 History acetaminophen [Tylenol Extra 1,500 mg PO Q6H PRN 04/21/19 04/21/19 History Strength] Past Med/Surg History Medical History Chronic venous insufficiency (Chronic) Venous stasis ulcers of both lower extremities (Acute) IDDM (insulin dependent diabetes mellitus) (Chronic 09/19/13) Stenosis, spinal, lumbar (Chronic 09/19/13) Obesity (Chronic 09/19/13) Hypertension associated with diabetes (Chronic 09/19/13) 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) Hyperlipidemia (Chronic) New onset atrial fibrillation (Acute) Hypomagnesemia (Acute) CHF (congestive heart failure) (Resolved) Cardiac dysrhythmia (Acute) Deep vein thrombosis (Acute) Edema (Acute) Hypoxia (Acute) Pleural effusion, left (Acute) SOB (shortness of breath) (Acute) Arthritis (Chronic) COPD (chronic obstructive pulmonary disease) (Chronic) Diabetes (Chronic) H/O: pneumothorax (Chronic) Hypertension (Chronic) Other specified cardiac arrhythmias (Chronic) Surgical History History of back surgery (Resolved) H/O carpal tunnel repair (Resolved) History of shoulder surgery (Resolved) Previous back surgery (Resolved) Family History Other Diabetes Heart disease Hypertension Social History Preferred Language: Armenian Communication Ability: Effective Visual Impairment: No Limitations Hearing Ability: Normal Director Visual Required: No Beliefs That Will Affect Care: None marital status: Current Living Situation: Spouse current occupational status: retired Other Information That Helps Us Care for You: No Feels Safe at Home: Yes Safety Concerns: Feels Safe At This Time Smoking Status: Former smoker Do You Dip or Chew Tobacco: No ; Hx Alcohol Use: No Hx Substance Use: No Review of Systems Review of Systems: The patient denies chest pain, palpitations, cough, lower extremity swelling, sore throat, fevers, chills, sweats,nausea, vomiting, diarrhea , constipation, abdominal pain, pelvic pain, blood in urine or stool, dysuria, urinary frequency or urgency, headache, loss of consciousness, imbalance, focal weakness, numbness or tingling in arms or legs, generalized arthralgias or myalgias, back or neck pain, or night sweats. The review of systems is otherwise negative other than for that already noted above, and at least 10 systems have been reviewed. Physical Exam Physical Exam: The patient is awake, alert and oriented 3, normocephalic and atraumatic, lying in bed and in no acute distress. HEENT--PERRL, EOMI, mucous membranes and oropharynx normal. Neck--supple. No JVD. No bruits. Thyroid normal, trachea midline, no adenopathy. Heart--normal S1 and S2. No murmurs, rubs or gallops. Lungs--decreased breath sounds throughout. Abdomen--normal bowel sounds and soft. Nontender. Nondistended. Morbidly obese Extremities--1+ bilateral pretibial pitting edema. Dermatologic--normal skin turgor, normal color, no abnormal lymph nodes, no rash. Neurologic--cranial nerves II through XII grossly intact. Rheumatologic--normal range of motion. Psychiatric--normal affect. Results & Data Vital Signs (Past 12 Hours) Vital Signs Temp Pulse Pulse Resp BP BP Pulse Ox 04/21/19 21:25 97.5 F L 77 18 142/71 H 98 04/21/19 20:31 54 L 13 145/71 H 94 04/21/19 20:30 59 L 20 04/21/19 20:00 116/57 L 97 04/21/19 19:30 125/55 L 95 04/21/19 19:00 55 L 21 135/62 85 L 04/21/19 18:50 55 L 16 124/68 85 L 04/21/19 18:49 52 L 20 04/21/19 17:30 54 L 19 04/21/19 17:00 54 L 19 04/21/19 16:30 55 L 26 H 04/21/19 16:00 54 L 18 04/21/19 15:49 56 L 17 04/21/19 15:31 97.5 F L 54 L 20 109/59 L 90 Laboratory Results Laboratory Results POC Glucose 109 (70-99) H 04/21/19 23:19 Troponin I < 0.015 ng/ml (0-0.045) 04/21/19 16:53 NT-Pro-B Natriuret Pep 343 pg/ml (0-1800) 04/21/19 16:53 TSH 2.670 uIu/ml (0.300-4.500) 04/21/19 16:53 Urine Color Yellow 04/21/19 17:40 Urine Appearance Clear (Clear) 04/21/19 17:40 Urine pH 6.5 (4.5-7.5) 04/21/19 17:40 Ur Specific [place] 1.012 (1.000-1.030) 04/21/19 17:40 Urine Protein Negative (Negative) 04/21/19 17:40 Urine Glucose (UA) Negative (Negative) 04/21/19 17:40 Urine Ketones Negative (Negative) 04/21/19 17:40 Urine Blood Negative (Negative) 04/21/19 17:40 Urine Nitrite Negative (Negative) 04/21/19 17:40 Urine Bilirubin Negative (Negative) 04/21/19 17:40 Urine Urobilinogen Negative (Negative) 04/21/19 17:40 Ur Leukocyte Esterase Negative (Negative) 04/21/19 17:40 Diagnostic Findings [facility], [place] [phone] XRay Report Patient: ANA MARÍA WATTERS Date: 04/21/19 MR#: [id number]: [address] [facility] Acct ID:[id number]: Date: [address] [place] [address] Zip: [place] [address] Age: 78Location: ED Sex: M Room/Bed: Att Phy:Diagnosis: WEAK Evy Phy: Giorgio Moncada M.D.Service Date: 04/21/19 Fam Phy:Interpreting Phy: Alexis Diehl MD Admit Phy: Ordering Phy: Trina Brar DO cc: ~ XR chest 1V portable CLINICAL HISTORY: 78 years-old Male presenting with sob. TECHNIQUE: Portable upright AP view of the chest was obtained. COMPARISON: 07/27/2018. FINDINGS: Atherosclerosis of the aortic arch. Cardiac silhouette enlarged. Pulmonary vascular prominence similar to prior exam. Scattered linear opacities may represent interstitial thickening. Vague added density in the mid to lower lungs. Trace pleural effusions may be present. No large pneumothorax. Degenerative changes of the thoracic spine. Upper abdomen normal. IMPRESSION: 1. Cardiomegaly with volume overload and congestive change. 2. Mid to basilar added density is in part chronic and may represent scarring though developing pulmonary edema is difficult to exclude. 3. Trace bilateral pleural effusions. Electronically signed by: Alexis Diehl M.D. 04/21/2019 4:41 PM [facility], [place] [phone] CT Scan Report Patient: ANA MARÍA WATTERS Date: 04/21/19 MR#: [id number]: [address] [facility] Acct ID:[id number]: Date: [address] [place] [address] Zip: [place] [address] Age: 78Location: ED Sex: M Room/Bed: Att Phy:Diagnosis: WEAK Evy Phy: Giorgio Moncada M.D.Service Date: 04/21/19 Fam Phy:Interpreting Phy: Alexis Diehl MD Admit Phy: Ordering Phy: Trina Brar DO cc: ~ CT head/brain wo con CLINICAL HISTORY: 78 years-old Male presenting with slurred speech. TECHNIQUE: Multidetector CT imaging of the head was performed without the use of intravenous contrast. IV contrast: None. One or more dose lowering techniques were used consistent with the principles of ALARA (as low as reasonably achievable), including automatic exposure control, mA or kV adjustment to individual patient size, and/or use of iterative reconstruction. COMPARISON: 01/05/2019. CT DOSE (mGy.cm): The estimated cumulative dose is 614.27 mGy.cm. FINDINGS: Telephone Information Clerk topogram: Unremarkable. Ventricles and sulci normal in size. No hemorrhage. Brain parenchyma normal in appearance with preserved mcnair-white differentiation. No acute territorial infarct. No mass effect or midline shift. No extra-axial fluid collection. Polypoid mucosal thickening in the right maxillary sinus. Calvarium intact. IMPRESSION: 1. No acute intracranial abnormality. Electronically signed by: Alexis Diehl M.D. 04/21/2019 6:13 PM Dictated: 04/21/191810 Transcribed: 04/21/191810 Code Status & VTE Plan Code Status Full code VTE Prophylaxis Plan VTE Prophylaxis will be ordered: Yes PG Care Time/CCT Total # of Minutes Spent Total Time Spent with Patient: Total time spent is greater than 50% in coordination of care (as documented) at patient's floor/unit and/or counseling patient:
[2019-04-21] MEDS: HEPARIN SOD 5,000 UNIT/0.5 ML VIAL SQ SCH (23:22)
[2019-04-21] MEDS: FUROSEMIDE 40 MG TAB PO SCH (23:23)
[2019-04-21] MEDS: GABAPENTIN 300 MG CAP PO SCH (23:24)
[2019-04-21] MEDS: LABETALOL HCL 300 MG TAB PO SCH (23:26)
[2019-04-21] MEDS: INSULIN ASPART 100 UNITS/ML 3 ML PEN SC SCH (23:27)
[2019-04-21] MEDS: SIMVASTATIN 40 MG TAB PO SCH (23:35)
[2019-04-22] MEDS: HEPARIN SOD 5,000 UNIT/0.5 ML VIAL SQ SCH ×3 (05:44→21:39)
[2019-04-22] MEDS ORDERED: INSULIN HUMAN 70% NPH/30% REGULAR SQ SCH ×2 (07:30→16:30)
[2019-04-22] MEDS: POTASSIUM CHLORIDE 10 MEQ TABCR PO SCH (08:03)
[2019-04-22] MEDS: FUROSEMIDE 40 MG TAB PO SCH ×2 (08:03→20:27)
[2019-04-22] MEDS: LABETALOL HCL 300 MG TAB PO SCH ×2 (08:04→20:29)
[2019-04-22] MEDS: ASPIRIN 81 MG ECTAB PO SCH (08:04)
[2019-04-22] MEDS: GABAPENTIN 300 MG CAP PO SCH ×3 (08:04→20:28)
[2019-04-22] MEDS: SPIRONOLACTONE 25 MG TAB PO SCH (08:05)
[2019-04-22] MEDS: INSULIN ASPART 100 UNITS/ML 3 ML PEN SC SCH ×4 (08:09→20:26)
[2019-04-22] MEDS ORDERED: PHARMACY GLYCEMIC MGMT CONSULT PRN (08:58)
[2019-04-22 09:25] LABS: Hematocrit (blood only) 40.5 % (42-52); Hemoglobin 12.3 g/dL (14.0-18.0); Mean Corpuscular Hemoglobin 27.6 pg (25-34); Mean Corpuscular Hgb Conc 30.4 g/dL (32-36); Mean Corpuscular Volume 90.8 fL (80-100); Mean Platelet Volume 10.8 fL (7.4-10.4); Platelet Count 200 K/uL (130-400); RDW Standard Deviation 53.1 fL (36.4-46.3); Red Blood Count 4.46 M/uL (4.7-6.1); White Blood Count 6.92 K/uL (4.8-10.8)
[2019-04-22] MEDS: INSULIN HUMAN NPH SC SCH (10:00)
[2019-04-22 10:02] LABS: BUN Creatinine Ratio 22.2 (10-20); Creatinine Clr Calc Pharmacy 72.8 ml/min; Est GFR (Non-African American) 56.1; Magnesium 2.5 mg/dl (1.8-2.4); Potassium 3.7 mmol/L (3.5-5.1)
[2019-04-22 11:21] LABS: Estimated Average Glucose 166 mg/dl; Hemoglobin A1C 7.4 % (4.5-5.6)
--- NOTE | 2019-04-22 14:39 | Pharmacy Report ---
Glycemic Control Consultation - Date of Service April 22, 2019 - Scope Scope: Glycemic Pharmacist consulted by Dr Castillo on 04/22/19 for glycemic control and to write orders per [facility] inpatient glycemic control protocol - Objective Weight: 140.8 kg Accuchecks BSG (last 24hrs): 04/21/19 04/21/19 04/21/19 18:18 18:20 19:13 Glucose POC Glucose 42 L* 41 L* 87 04/21/19 04/21/19 04/22/19 21:36 23:19 04:07 Glucose POC Glucose 74 109 H 101 H 04/22/19 04/22/19 04/22/19 07:45 09:14 11:36 Glucose 173 H POC Glucose 115 H 172 H Laboratory Data (last 24hrs): 04/22/19 09:14 Potassium 3.7 Carbon Dioxide 35 H Anion Gap 3.0 Creatinine 1.24 Est Cr Clr Drug Dosing 72.8 HbA1c: Hemoglobin A1c 7.4 % (4.5-5.6) H 04/22/19 09:14 - Recent Pertinent Medications Outpatient Anti-diabetic Regimen: * Novolin 70/30 -- 85 units in the morning and 65 units in the evening * A1c = 7.4 % 04/21/19 Risk Factors for Insulin Resistance: * Diet: T2DM - Assessment & Plan Assessment & Plan: ASSESSMENT: * Mr Munoz is a 78 y/o M with a PMH of T2DM who presents with AMS potentially from hypoglycemia. Patient has a reasonable HbA1C. Patient's blood sugar on admission was 42 mg/dL ... blood sugar did not rebound until this morning when fasting was 115 mg/dL. * Went and had indepth conversation with patient. Patient is managed by Dr Flood. Patient is not sure why is he on 70/30 insulin. The physician placed him on this many years ago and it hasn't changed. He said he does have insurance. Patient DOES NOT check his blood sugars at home. He reports that he has had hypoglycemia maybe twice where he has sweating occasions. However upon discussion with the patient I believe that he is unaware when he is having hypoglycemic episodes. He mentioned that sometimes his neighbor calls him in to stop him from working. This sounds like he may be acting funny or have some external symptom. * Patient is very very hesitant to change his regimen because he is worried abo ut how it will appear to his PCP. He asked about providers that specialize in insulin but then declined a referral to these providers. * Of note, the neighbor (Andrew) and him are starting to eat different. Focusing more on green leafy vegetables rather than [employer]. This (in reference to the new diet) is how the patient was eating the day he was admitted with a blood sugar of 42 mg/dL. * I am very concerned about the patient's regimen. Will continue with NPH at this point as I am not sure if this really is an insurance issue or if the patient could manage multiple administrations a day. Start with weight-based stress of 2 dosing in both NPH and Novolog. Will manage from here. * Of note the patient did feel funny (felt tired and heavy) when I was in the room with him so I had his blood sugar checked. It was ~200 mg/dL. PLAN FOR INPATIENT GLYCEMIC CONTROL: * Basal insulin * NPH 17 units SQ in morning and 14 units in the evening (17 units if blood sugar over 120 mg/dL) * Bolus insulin * NovoLog per scale ACHS or Q6hrs while NPO * Goal Range: Low 110 mg/dL - High 140 mg/dL * Correction Factor: 25 mg/dL/unit * Nutritional / Prandial insulin per carb ratio of 1 unit per 8 grams CHO consumed * Please note that the plan above was derived based on current level of insulin resistance and hospital stress. These recommendations are appropriate for inpatient admission only. Plan of care upon discharge will need to be reassessed to avoid potential outpatient hypo/hyperglycemia. Thank you.
[2019-04-22] MEDS ORDERED: INSULIN HUMAN NPH SC SCH (16:30)
--- NOTE | 2019-04-22 17:29 | Hospitalist Progress Note ---
Date of Service April 22, 2019 Assessment & Plan (1) Hypoglycemia: Likely due to dramatic change in diet with steady doses of insulin. He does not check his blood sugars at home because he reports he is "lazy." - Held all 70/30 insulin today - Sliding scale - Glycemic pharmacists - Hopefully will get a safe regimen for him with a more constant diabetic diet to give advice for home. (2) Transient confusion: Patient symptoms of confusion, slurred speech, etc. were likely related to hypoglycemia. - As above for hypoglycemia (3) IDDM (insulin dependent diabetes mellitus): A1c was 7.4%, so actually fairly well controlled at home. - See above for hypoglycemia - Will need adjustment of his regimen (4) Chronic venous insufficiency: Some swelling in the legs, but fairly steady per the patient. - Continue furosemide 80 mg p.o. twice daily (5) Hyperlipidemia: No muscle concerns. - Continue simvastatin 40 mg in evening (6) Hypertension: BP 135/70 today. Good for in the hospital. - Continue labetalol 300 mg p.o. twice daily, diltiazem CD 240 mg p.o. daily, Spironolactone 25 mg p.o. daily, Klor-Con 10 mEq daily and furosemide 80 mg p.o. twice daily. (7) Peripheral neuropathy: No complaints today. - Continue gabapentin 300 mg p.o. 3 times daily (8) Asthma: Reports no shortness of breath today. - Continue usual inhalers (9) DVT prophylaxis: Heparin 5000 units Q12h Subjective Feeling fairly well today, though definitely somewhat slow to respond. Reports he is eating better compared to before, and may be this is why his sugars are lower. Review of Systems Review of Systems: All systems reviewed & are unremarkable except as noted in HPI & below Physical Exam Constitutional: WD/WN, vitals as above + obese Eyes: EOM intact bilaterally; no conjunctival abnormality ENMT: external ear and nose normal, oropharynx normal Neck: trachea midline, no thyromegaly normal visual inspection Respiratory: normal respiratory effort, lungs clear to auscultation no respiratory distress Cardiovascular: RRR, no murmur, no edema Gastrointestinal (Abdomen): Inspection/Auscultation: abdomen normal to inspection; abdomen not distended Musculoskeletal: no cyanosis or clubbing, extremities motor strength 5/5 Skin: no rashes, warm and dry Neurologic: moves all extremities and awake Psychiatric: Orientation: alert, oriented to person and cooperative Results & Data Vital Signs (Past 12 Hours) Vital Signs Temp Pulse Pulse Resp BP BP Pulse Ox 04/22/19 16:20 36.9 C 64 20 133/68 94 04/22/19 15:23 60 04/22/19 11:18 36.6 C 65 16 113/64 92 04/22/19 07:56 36.6 C 67 20 137/75 93 04/22/19 07:30 58 L PG Care Time/CCT Total # of Minutes Spent Total Time Spent with Patient: Total time spent is greater than 50% in coordination of care (as documented) at patient's floor/unit and/or counseling patient:
[2019-04-22] MEDS: SIMVASTATIN 40 MG TAB PO SCH (20:31)
[2019-04-23] MEDS: HEPARIN SOD 5,000 UNIT/0.5 ML VIAL SQ SCH (05:51)
[2019-04-23 08:04] LABS: BUN Creatinine Ratio 19.5 (10-20); Calcium 9.1 mg/dl (8.5-10.1); Creatinine Clr Calc Pharmacy 63.6 ml/min; Est GFR (African American) 58.2; Est GFR (Non-African American) 50.2
[2019-04-23] MEDS: INSULIN HUMAN NPH SC SCH (08:12)
[2019-04-23] MEDS: INSULIN ASPART 100 UNITS/ML 3 ML PEN SC SCH ×2 (08:14→12:08)
[2019-04-23] MEDS: SPIRONOLACTONE 25 MG TAB PO SCH (08:16)
[2019-04-23] MEDS: GABAPENTIN 300 MG CAP PO SCH (08:16)
[2019-04-23] MEDS: FUROSEMIDE 40 MG TAB PO SCH (08:16)
[2019-04-23] MEDS: LABETALOL HCL 300 MG TAB PO SCH (08:16)
[2019-04-23] MEDS: POTASSIUM CHLORIDE 10 MEQ TABCR PO SCH (08:17)
[2019-04-23] MEDS: ASPIRIN 81 MG ECTAB PO SCH (08:18)
--- NOTE | 2019-04-23 10:44 | Pharmacy Report ---
Glycemic Control Progress Note - Date of Service April 23, 2019 - Scope Glycemic Pharmacist consulted for glycemic control to write orders per [facility] inpatient glycemic control protocol. - Objective Accuchecks BSG(last 24 hours):: 04/22/19 04/22/19 04/22/19 11:36 14:22 16:37 Glucose POC Glucose 172 H 201 H 184 H 04/23/19 04/23/19 07:16 07:45 Glucose 120 H POC Glucose 125 H HbA1c:: Hemoglobin A1c 7.4 % (4.5-5.6) H 04/22/19 09:14 - Recent Pertinent Medications The patient is currently receiving: * Basal insulin: NPH 17 units every 12 hours * Correctional Insulin: Novolog Correction per scale ACHS Goal Range: Low 110 mg/dL - High 140 mg/dL Correction Factor: 25 mg/dL/unit * Prandial insulin: Per carb ratio of 1 unit per 8 grams CHO consumed - Outpatient Anti-Diabetic Meds NPH 70/30 --- 85 UNITS DAILY AND 65 UNITS AT BEDTIME - Assessment & Plan ASSESSMENT: * See progress note from 04/22/19 for more background info, in short: * Pt receiving SQ basal bolus insulin regimen for hyperglycemia secondary to baseline DM (outpatient regimen on hold). * Patient is currently receiving an average of 53 units of insulin per day * 34 units of basal insulin * 19 units of prandial/correctional insulin * BSGs ranging 101 - 184 mg/dl over the past 24hrs * Changes needed to insulin regimen: * AM Fasting BSG = 125 mg/dl. This is in goal range for patient based on inpatient targets and co-morbidities. Therefore Basal insulin will be continued at this time. * Post-prandial BSGs are in range therefore no changes needed to CF/CR. * Total daily dose = ~55 units. PLAN FOR INPATIENT GLYCEMIC CONTROL: * Continuing NPH 17 units SQ BID * Continuing correction factor of 25 mg/dl/unit * Continuing carb ratio of 1 unit per 8 grams CHO consumed * Continuing goal range of Low 110 mg/dL - High 140 mg/dL RECOMMENDATIONS FOR DISCHARGE: * At this point and time, the patient required about 55 units yesterday. This would correlate with roughly 25 units twice daily of Novolin 70/30. * I have requested Sheila Oliver see the patient either Wednesday or Wednesday. He lacks significant education and if he is going to drastically change his diet I think it imperative that education be provided. * Please note that the plan above was derived based on current level of insulin resistance and hospital stress. These recommendations are appropriate for inpatient admission only. Plan of care upon discharge will need to be reassessed to avoid potential outpatient hypo/hyperglycemia. Thank you.
--- NOTE | 2019-04-23 15:46 | Discharge Summary ---
Date of Service April 23, 2019 Admission HPI Per Admitting Provider The patient is a 78-year-old male who presents to the emergency department with complaint of confusion, difficulty speaking, talking incoherently with some slurring of speech that began about 3 hours prior to arrival. Per the ED staff, his symptoms were resolved by the time he arrived. The patient did also report that his breathing was somewhat more short of breath than his baseline. Principal Diagnosis Hypoglycemia due to over administration of insulin. Discharge Exam Constitutional WD/WN, vitals as above + obese Eyes EOM intact bilaterally; no conjunctival abnormality ENMT external ear and nose normal, oropharynx normal Neck trachea midline, no thyromegaly normal visual inspection Respiratory normal respiratory effort, lungs clear to auscultation no respiratory distress Cardiovascular RRR, no murmur, no edema Gastrointestinal (Abdomen) Inspection/Auscultation: abdomen normal to inspection; abdomen not distended Musculoskeletal no cyanosis or clubbing, extremities motor strength 5/5 Skin no rashes, warm and dry Neurologic moves all extremities and awake Psychiatric Orientation: alert, oriented to person and cooperative Discharge Data Allergies Allergy/AdvReac Type Severity Reaction Status Date / Time Penicillins Allergy Unknown RASH Verified 04/21/19 18:08 Consultations 04/21/19 19:43 ED Decision to Admit Stat 04/21/19 22:01 Consult Case Management - Discharge Planning Routine Ordered Studies 04/21/19 16:31 CT head/brain wo con Stat Hospital Course (1) Hypoglycemia: Likely due to dramatic change in diet with steady dose of insulin. He does not check his blood sugars at home because he reports he is "lazy." - Held all 70/30 insulin initially - Discharged on 70/30 25 units BID. - Discussed with his and with their neighbor/shoe handler Zenon. Given his healthier eating habits, will likely need much lower dosing. Also set up home nursing for him as well as a script for new suppl ies for his fingersticks. (2) Transient confusion: Patient symptoms of confusion, slurred speech, etc. were likely related to hypoglycemia. - As above for hypoglycemia (3) IDDM (insulin dependent diabetes mellitus): A1c was 7.4%, so actually fairly well controlled at home. - See above for hypoglycemia - 25 units BID on discharge. (4) Chronic venous insufficiency: Some swelling in the legs, but fairly steady per the patient. [facility] [place]. - Continue furosemide 80 mg p.o. twice daily (5) Hyperlipidemia: No muscle concerns. - Continue simvastatin 40 mg in evening (6) Hypertension: BP 135/70 today. Good for in the hospital. - Continue labetalol 300 mg p.o. twice daily, diltiazem CD 240 mg p.o. daily, Spironolactone 25 mg p.o. daily, Klor-Con 10 mEq daily and furosemide 80 mg p.o. twice daily. (7) Peripheral neuropathy: No complaints today. - Continue gabapentin 300 mg p.o. 3 times daily (8) Asthma: Reports no shortness of breath today. - Continue usual inhalers (9) DVT prophylaxis: Heparin 5000 units Q12h Total Time Total Time Spent Total Time Spent (In Minutes): 35 Discharge Plan Discharge Items Patient Disposition: Home - Home Health Services Reason For Visit: HYPOGLYCEMIA Discharge Diagnosis: Low blood sugar from too high insulin usage Condition on Discharge: Fair Activity: Resume your previous activity Non-emergency contact: Primary Care Provider Call non-emergency contact if: your symptoms worsen Follow-up/Referrals: Giorgio Louis MD [Primary Care Provider] - (Please see Dr. Selam Stanley this week.) Diet: Carb Consistent or DM2 Addtl Attending Provider Instructions: Mr. Munoz, You were admitted to the hospital for a low blood sugar. We think this is because you took too much insulin and your diet changed, leading you to eat fewer sugars. We have lowered your insulin level to 25 units twice per day. Take it the same time as your regimen before. Please check your sugars before breakfast and 2 hours after 1 or 2 meals per day. We are arranging home nursing to help get this done. Take these numbers to Dr. Selam Stanley to help adjust your medication regimen. Pending Studies at Discharge: No Stand-Alone Forms: My [facility] [address] Medications and DC Order Prescriptions: Continued spironolactone 25 mg tablet 25 mg PO DAILY RF: 0 aspirin 81 mg tablet,delayed release (DR/EC) 81 mg PO DAILY RF: 0 diltiazem HCl 240 mg capsule,extended release 24 hr 240 mg PO DAILY RF: 0 furosemide 40 mg tablet 80 mg PO BID RF: 0 gabapentin 300 mg capsule 300 mg PO TID RF: 0 labetalol 300 mg tablet 300 mg PO BID RF: 0 potassium chloride 10 mEq tablet extended release 10 meq PO DAILY RF: 0 simvastatin 40 mg tablet 40 mg PO QPM RF: 0 [id number] [Trelegy Ellipta] 100-62.5-25 mcg blister with device 1 inh inhalation DAILY RF: 0 acetaminophen [Tylenol Extra Strength] 500 mg Tablet 1,500 mg PO Q6H PRN (Reason: Pain) RF: 0 Changed Novolin 70/30 U-100 Insulin 100 unit/mL (70-30) suspension 25 units SQ BID Qty: 0 RF: 0 Discontinued insulin NPH and regular human [Novolin 70/30 U-100 Insulin] 100 unit/mL (70- 30) suspension 65 units SQ QPM RF: 0 Discharge Orders: Discharge Order (Routine); Ordered 04/23/19 Ordered By: Darrius Nolan/Other Patient Handouts: Hyperglycemia, Hypoglycemia, Diabetes Healthy Meals Admission Data Admit Date/Time: 04/21/19 20:15 Attending Provider: Darrius Castillo Admit Provider: Eladio Lorenzana Primary Care Provider: Giorgio Louis Other Providers: Darrius Castillo ; Hospice,Family Other Interventions: Discharge Summary Assessment (RN) Last Done: 04/23/19 12:40 DC Date/Time DO NOT enter until pt leaves facility: 04/23/19 14:27
== END 2019-04-23 14:27 | disposition home health service (06) ==
LOC: 2W 15:19 → ED 15:19 → SUATTDRO 20:15 → 2W 21:20

== ENCOUNTER 2019-12-20 17:29 | Inpatient (IN) ==
[2019-12-20] MEDS ORDERED: SODIUM CHLORIDE 0.9% 1000ML 1,000 ML IV ONE ×2 (17:56→20:14)
--- NOTE | 2019-12-20 18:05 | Emergency Department Note ---
Impression & Plan Acute renal failure, Cellulitis of both lower extremities, Altered mental status, Heme positive stool ED Provider Note NAME: ANA MARÍA WATTERS AGE: 79 SEX: M ARRIVES VIA: Ambulance INFORMANT: Patient, ED PROVIDER(S): Emanuel Fernández MD CHIEF COMPLAINT: Confusion, weakness, black stool, leg wounds PLAN: Disposition: Admit MEDICAL DECISION MAKING: The patient is a pleasant 79-year-old gentleman with a past medical history of hypertension, hyperlipidemia, A. fib on Coumadin who presents emergency department for evaluation of worsening confusion, report of black stools over the past week and worsening bilateral lower extremity wounds in the setting of having a an accident with tractor equipment 4 days ago. Patient and friend deny fever, cough, vomiting, urinary symptoms. Deny exposures to individuals diagnosed with Covid19. On arrival the patient is ill-appearing but in no acute distress, afebrile with low blood pressure 80s/60s but alert to self and place with mild pleasant confusion. On exam the patient has erythema warmth and tenderness of bilateral lower legs in the pretibial region with the left pretibial region most severe with induration and ecchymosis of the wound. Distal PMS intact. Rectal exam demonstrates yellowish-brown stool that is scantly guaiac positive. There is no gross melena or hemorrhage. WBC and platelets within normal limits. H/H 13.6/41.5. Similar to prior range of values. VBG unremarkable. Chemistry without metabolic acidosis. Creatinine 3.05 representing acute renal failure. Magnesium 3.3 and phosphorus 5.3 and electrolytes otherwise unremarkable. Lactate within normal limits. LFTs unremarkable. Troponin negative/undetectable. CRP and ESR slightly elevated at 2.2 and 32, respectively. UA without convincing evidence of infection. Chest x-ray with bibasilar opacities most likely atelectasis. Plain films of the bilateral lower legs without osseous involvement. CT head negative for acute process. CT abdomen pelvis also negative for acute process. Given the johanne ent's exam findings in his lower extremities there is high suspicion for cellulitis and given his report of working outside with yard equipment will begin with broad spectrum treatment including cefepime and Flagyl as well as vancomycin. Case was discussed with Dr. Lorenzana, [facility] hospitalist, who will evaluate the patient for admission. Triage Nursing notes reviewed and agree them. Additional history obtained from friend and caregiver Prior medical records reviewed Vital Signs: reviewed and remarkable for no significant abnormalities Differential diagnosis: Infection, dehydration, metabolic abnormality, hypo/hyperglycemia, electrolyte disturbance, anemia, hypoxia, cardiac sources, intracerebral event, toxicologic, neurologic, as well as other pathologies. ER treatment provided: See below. Diagnostics interpreted by me: ECG: Normal sinus rhythm, 60 bpm, normal axis, no ectopy, no overt ST elevation or depression, QTC 446, QRS 114. Similar to April 21, 2019. Cardiac Monitoring: An order for continuous cardiac monitoring was placed and demonstrated normal sinus rhythm, 60 bpm, no ectopy. Laboratory studies: See below Imaging studies: See below Consultation(s): Case was discussed with Dr. Lorenzana, [facility] hospitalist, who will evaluate the patient for admission. HPI: The patient is a pleasant 79-year-old gentleman with a past medical history of hypertension, hyperlipidemia, A. fib on Coumadin who presents emergency department for evaluation of worsening confusion, report of black stools over the past week and worsening bilateral lower extremity wounds in the setting of having a an accident with tractor equipment 4 days ago. Patient and friend deny fever, cough, vomiting, urinary symptoms. Deny exposures to individuals diagnosed with Covid19. ROS: See above HPI for pertinent positives & negatives. A total of 10 systems reviewed and were otherwise negative. PAST MEDICAL HISTORY:See Below PAST SURGICAL HISTORY:See Below FAMILY HISTORY:See Below SOCIAL HISTORY:See Below HOME MEDICATIONS:See Below ALLERGIES:See Below VITALS:See Below PHYSICAL EXAMINATION: GENERAL: Awake, alert, ill-appearing, in no distress HENT: Normocephalic, atraumatic. Oropharynx with dry mucous membranes and otherwise unremarkable. EYES: Normal conjunctiva. Sclera non-icteric. NECK: Supple. No nuchal rigidity. FROM. No JVD. RESPIRATORY: Clear to auscultation. CARDIAC: Regular rate, normal rhythm. Extremities warm and well perfused. Pulses equal. ABDOMEN: Soft, non-distended. No tenderness to palpation. No rebound or guarding. No masses. RECTAL: Yellowish-brown stool that is scantly guaiac positive. There is no gross melena or hemorrhage. MUSCULOSKELETAL: Chest examination reveals no tenderness. The back is symmetrical on inspection without obvious abnormality. There is no CVA tenderness to palpation. No joint edema. LOWER EXTREMITIES: Calves are equal size bilaterally and non-tender. No edema. No discoloration. NEURO: Normal sensorium. No sensory or motor deficits noted. SKIN: Erythema warmth and tenderness of bilateral lower legs in the pretibial region with the left pretibial region most severe with induration and ecchymosis of the wound. Distal PMS intact. No rash or jaundice noted. ED COURSE: Critical Care: I have personally spent greater than 45 minutes of critical care time in the direct management of this patient. This includes bedside care, interpretation of diagnostic studies, and testing, discussion with consultants, patient, and family members, and other required patient management activities. This 45 minutes is in excess of all separately billable procedures. Emanuel Fernández MD Past Med/Surg History Medical History Arthritis (Chronic) Cardiac dysrhythmia (Acute) CHF (congestive heart failure) (Resolved) Chronic venous insufficiency (Chronic) COPD (chronic obstructive pulmonary disease) (Chronic) Deep vein thrombosis (Acute) Diabetes (Chronic) Edema (Acute) H/O: pneumothorax (Chronic) Hyperlipidemia (Chronic) Hypertension (Chronic) Hypertension associated with diabetes (Chronic 09/19/13) Hypomagnesemia (Acute) Hypoxia (Acute) IDDM (insulin dependent diabetes mellitus) (Chronic 09/19/13) New onset atrial fibrillation (Acute) Obesity (Chronic 09/19/13) Other specified cardiac arrhythmias (Chronic) Paroxysmal atrial fibrillation Pleural effusion, left (Acute) SOB (shortness of breath) (Acute) 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) Stenosis, spinal, lumbar (Chronic 09/19/13) Venous stasis ulcers of both lower extremities (Acute) Surgical History H/O carpal tunnel repair (Resolved) History of back surgery (Resolved) History of shoulder surgery (Resolved) Previous back surgery (Resolved) Family History Other Diabetes Heart disease Hypertension Social History Preferred Language: Swazi Communication Ability: Effective Visual Impairment: No Limitations Hearing Ability: Normal Senior Game Designer Required: No Beliefs That Will Affect Care: None marital status: Current Living Situation: Spouse current occupational status: retired Feels Safe at Home: Yes Smoking Status: Former smoker Hx Alcohol Use: No Hx Substance Use: No Allergies Allergies Allergy/AdvReac Type Severity Reaction Status Date / Time Penicillins Allergy Unknown RASH Verified 08/07/19 13:44 Home Meds Home Medications Medication Instructions Recorded Confirmed aspirin 81 mg tablet,delayed 81 mg PO DAILY 07/20/18 12/20/19 release diltiazem HCl 240 mg capsule,24 240 mg PO DAILY 07/20/18 12/20/19 hr,extended release furosemide 40 mg tablet 80 mg PO BID tab 07/20/18 12/20/19 gabapentin 300 mg capsule 300 mg PO TID 07/20/18 12/20/19 labetalol 300 mg tablet 300 mg PO BID 07/20/18 12/20/19 potassium chloride 10 mEq 10 meq PO DAILY 07/20/18 12/20/19 tablet,extended release simvastatin 40 mg tablet 40 mg PO QPM 07/20/18 12/20/19 spironolactone 25 mg tablet 25 mg PO DAILY 03/15/19 12/20/19 acetaminophen [Tylenol Extra 1,500 mg PO Q6H PRN 04/21/19 12/20/19 Strength] albuterol sulfate 90 mcg/actuation 2 puffs INHALATION Q4H PRN #1 gm 05/08/19 12/20/19 aerosol inhaler metoprolol tartrate 100 mg tablet 100 mg PO BID tab 05/08/19 12/20/19 nitroglycerin 0.6 mg sublingual 0.6 mg SL PRN PRN tab 05/08/19 12/20/19 tablet ipratropium-albuterol 3 ml INHALATION QID 12/20/19 12/20/19 metolazone 2.5 mg PO Q2D 12/20/19 12/20/19 Previous Rx's Medication Instructions Recorded Novolin 70/30 U-100 Insulin 25 units SQ BID #0 ml 04/23/19 Results & Data (ED) Vital Signs Vital Signs - 24 hr 12/20/19 17:29 12/20/19 18:00 12/20/19 18:25 Temperature 37.5 C Temperature Source Oral Pulse Rate 86 Pulse Rate [Apical] 86 92 H Pulse Rate from SpO2 Sensor 61 56 L Pulse Rhythm Regular Pulse Rhythm [Apical] Regular Regular Pulse Strength [Apical] Normal Normal Respiratory Rate 16 16 16 Respiratory Effort / Characteristics Non-Labored Spontaneous Non-Labored Spontaneous Respiratory Depth Normal Normal Respiratory Pattern Regular Regular Blood Pressure 84/54 L 92/53 L Blood Pressure [Right Arm] 84/54 L 92/53 L Blood Pressure Mean 64 63 Blood Pressure Mean [Right Arm] 64 66 Blood Pressure Position Lying Blood Pressure Position [Right Arm] Lying Lying Pulse Oximetry 94 95 94 Oxygen Delivery Method Room Air Room Air Sepsis Recent Fever Within 48 Hours No Sepsis New/Unexplained Change in Mental Status No Sepsis Action Taken by Nursing No Action Required 12/20/19 18:30 12/20/19 18:45 12/20/19 18:58 Temperature Temperature Source Pulse Rate 62 Pulse Rate [Apical] Pulse Rate from SpO2 Sensor 63 63 Pulse Rhythm Pulse Rhythm [Apical] Pulse Strength [Apical] Respiratory Rate Respiratory Effort / Characteristics Respiratory Depth Respiratory Pattern Blood Pressure 82/52 L 109/52 L Blood Pressure [Right Arm] Blood Pressure Mean 61 62 Blood Pressure Mean [Right Arm] Blood Pressure Position Blood Pressure Position [Right Arm] Pulse Oximetry 93 98 Oxygen Delivery Method Sepsis Recent Fever Within 48 Hours Sepsis New/Unexplained Change in Mental Status Sepsis Action Taken by Nursing 12/20/19 19:43 12/20/19 20:30 12/20/19 21:01 Temperature Temperature Source Pulse Rate 63 61 68 Pulse Rate [Apical] Pulse Rate from SpO2 Sensor 61 70 Pulse Rhythm Pulse Rhythm [Apical] Pulse Strength [Apical] Respiratory Rate 18 15 21 Respiratory Effort / Characteristics Respiratory Depth Respiratory Pattern Blood Pressure 94/58 L 91/54 L 104/62 Blood Pressure [Right Arm] Blood Pressure Mean 70 64 82 Blood Pressure Mean [Right Arm] Blood Pressure Position Blood Pressure Position [Right Arm] Pulse Oximetry 97 95 93 Oxygen Delivery Method Room Air Room Air Room Air Sepsis Recent Fever Within 48 Hours Sepsis New/Unexplained Change in Mental Status Sepsis Action Taken by Nursing 12/20/19 21:30 12/20/19 22:00 Temperature Temperature Source Pulse Rate 66 66 Pulse Rate [Apical] Pulse Rate from SpO2 Sensor 65 66 Pulse Rhythm Pulse Rhythm [Apical] Pulse Strength [Apical] Respiratory Rate 14 17 Respiratory Effort / Characteristics Respiratory Depth Respiratory Pattern Blood Pressure 103/60 101/53 L Blood Pressure [Right Arm] Blood Pressure Mean 71 64 Blood Pressure Mean [Right Arm] Blood Pressure Position Blood Pressure Position [Right Arm] Pulse Oximetry 91 90 Oxygen Delivery Method Room Air Room Air Sepsis Recent Fever Within 48 Hours Sepsis New/Unexplained Change in Mental Status Sepsis Action Taken by Nursing Laboratory Data Attestation: I reviewed the patient's lab results. Result diagrams: 12/20/19 17:11 12/20/19 17:11 Lab Results 12/20/19 12/20/19 12/20/19 Range/Units 17:11 17:11 17:11 WBC 7.06 (4.8-10.8) K/uL RBC 4.51 L (4.7-6.1) M/uL Hgb 13.6 L (14.0-18.0) g/dL Hct 41.5 L (42-52) % MCV 92.0 (80-100) fL MCH 30.2 (25-34) pg MCHC 32.8 (32-36) g/dL RDW Std Deviation 54.3 H (36.4-46.3) fL RDW Coeff of Woo 16.2 H (11.5-14.5) % Plt Count (130-400) K/uL MPV (7.4-10.4) fL Immature Gran % (Auto) 0.6 % Neut % (Auto) 69.0 % Lymph % (Auto) 17.6 % Charles % (Auto) 9.3 % Eos % (Auto) 3.1 % Baso % (Auto) 0.4 % Immature Gran # (Auto) 0.04 H (0.00-0.02) K/uL Neut # (Auto) 4.87 (1.4-6.5) K/uL Lymph # (Auto) 1.24 (1.2-3.4) K/uL Charles # (Auto) 0.66 H (0.11-0.59) K/uL Eos # (Auto) 0.22 (0-0.5) K/uL Baso # (Auto) 0.03 (0-0.2) K/uL ESR (0-14) mm/hr PT 10.6 (9.0-12.0) Seconds INR 1.0 (0.9-1.1) APTT 24.4 (21.0-31.0) Seconds PTT Ratio 0.9 VBG pH (7.36-7.41) VBG pCO2 (38-50) mmHg VBG pO2 mmHg VBG HCO3 mmol/L VBG O2 Saturation % VBG Base Excess mEq/L Barometric Pressure mm/Hg Sodium (136-145) mmol/L Potassium (3.5-5.1) mmol/L Chloride (98-107) mmol/L Carbon Dioxide (21-32) mmol/L Anion Gap (3-11) BUN (7-18) mg/dl Creatinine (0.6-1.4) mg/dl Est Cr Clr Drug Dosing ml/min Est GFR ( Amer) Est GFR (Non-Af Amer) BUN/Creatinine Ratio (10-20) Glucose (70-99) mg/dl Lactate (0.4-2.0) mmol/L Calcium (8.5-10.1) mg/dl Phosphorus (2.5-4.9) mg/dl Magnesium (1.8-2.4) mg/dl Total Bilirubin (0.2-1) mg/dl Direct Bilirubin (0-0.2) mg/dl AST (15-37) U/L ALT (12-78) U/L Alkaline Phosphatase (45-117) U/L Total Creatine Kinase (39-308) U/L Troponin I (0-0.045) ng/ml C-Reactive Protein (0-0.29) mg/dl Total Protein (6.4-8.2) gm/dl Albumin (3.4-5.0) gm/dl Globulin (2.5-4.0) gm/dl Albumin/Globulin Ratio (0.9-2) Procalcitonin 0.11 (0-0.5) ng/ml TSH (0.300-4.500) uIu/ml Urine Color Urine Appearance (Clear) Urine pH (4.5-7.5) Ur Specific [place] (1.000-1.030) Urine Protein (Negative) Urine Glucose (UA) (Negative) Urine Ketones (Negative) Urine Blood (Negative) Urine Nitrite (Negative) Urine Bilirubin (Negative) Urine Urobilinogen (Negative) Ur Leukocyte Esterase (Negative) Urine WBC (Auto) (0-5) /hpf Urine RBC (Auto) (0-4) /hpf U Hyaline Cast (Auto) (0-5) /lpf U Epithel Cells (Auto) (0-5) /lpf Urine Bacteria (Auto) (Negative) Ethyl Alcohol mg/dL (0-3) mg/dl Blood Type Antibody Screen 12/20/19 12/20/19 12/20/19 Range/Units 17:11 17:11 18:20 WBC (4.8-10.8) K/uL RBC (4.7-6.1) M/uL Hgb (14.0-18.0) g/dL Hct (42-52) % MCV (80-100) fL MCH (25-34) pg MCHC (32-36) g/dL RDW Std Deviation (36.4-46.3) fL RDW Coeff of Woo (11.5-14.5) % Plt Count (130-400) K/uL MPV (7.4-10.4) fL Immature Gran % (Auto) % Neut % (Auto) % Lymph % (Auto) % Charles % (Auto) % Eos % (Auto) % Baso % (Auto) % Immature Gran # (Auto) (0.00-0.02) K/uL Neut # (Auto) (1.4-6.5) K/uL Lymph # (Auto) (1.2-3.4) K/uL Charles # (Auto) (0.11-0.59) K/uL Eos # (Auto) (0-0.5) K/uL Baso # (Auto) (0-0.2) K/uL ESR 32 H (0-14) mm/hr PT (9.0-12.0) Seconds INR (0.9-1.1) APTT (21.0-31.0) Seconds PTT Ratio VBG pH (7.36-7.41) VBG pCO2 (38-50) mmHg VBG pO2 mmHg VBG HCO3 mmol/L VBG O2 Saturation % VBG Base Excess mEq/L Barometric Pressure mm/Hg Sodium 135 L (136-145) mmol/L Potassium 5.1 (3.5-5.1) mmol/L Chloride 97 L (98-107) mmol/L Carbon Dioxide 28 (21-32) mmol/L Anion Gap 10.0 (3-11) BUN 80 H (7-18) mg/dl Creatinine 3.05 H (0.6-1.4) mg/dl Est Cr Clr Drug Dosing 24.6 ml/min Est GFR ( Amer) 21.8 Est GFR (Non-Af Amer) 18.8 BUN/Creatinine Ratio 26.3 H (10-20) Glucose 130 H (70-99) mg/dl Lactate (0.4-2.0) mmol/L Calcium 9.2 (8.5-10.1) mg/dl Phosphorus 5.3 H (2.5-4.9) mg/dl Magnesium 3.3 H (1.8-2.4) mg/dl Total Bilirubin 0.2 (0.2-1) mg/dl Direct Bilirubin < 0.1 (0-0.2) mg/dl AST 17 (15-37) U/L ALT 17 (12-78) U/L Alkaline Phosphatase 104 (45-117) U/L Total Creatine Kinase 83 (39-308) U/L Troponin I < 0.015 (0-0.045) ng/ml C-Reactive Protein 2.27 H (0-0.29) mg/dl Total Protein 6.8 (6.4-8.2) gm/dl Albumin 3.1 L (3.4-5.0) gm/dl Globulin 3.7 (2.5-4.0) gm/dl Albumin/Globulin Ratio 0.8 L (0.9-2) Procalcitonin (0-0.5) ng/ml TSH 1.480 (0.300-4.500) uIu/ml Urine Color Urine Appearance (Clear) Urine pH (4.5-7.5) Ur Specific [place] (1.000-1.030) Urine Protein (Negative) Urine Glucose (UA) (Negative) Urine Ketones (Negative) Urine Blood (Negative) Urine Nitrite (Negative) Urine Bilirubin (Negative) Urine Urobilinogen (Negative) Ur Leukocyte Esterase (Negative) Urine WBC (Auto) (0-5) /hpf Urine RBC (Auto) (0-4) /hpf U Hyaline Cast (Auto) (0-5) /lpf U Epithel Cells (Auto) (0-5) /lpf Urine Bacteria (Auto) (Negative) Ethyl Alcohol mg/dL (0-3) mg/dl Blood Type A Positive Antibody Screen NEGATIVE 12/20/19 12/20/19 12/20/19 Range/Units 18:20 18:20 18:20 WBC (4.8-10.8) K/uL RBC (4.7-6.1) M/uL Hgb (14.0-18.0) g/dL Hct (42-52) % MCV (80-100) fL MCH (25-34) pg MCHC (32-36) g/dL RDW Std Deviation (36.4-46.3) fL RDW Coeff of Woo (11.5-14.5) % Plt Count (130-400) K/uL MPV (7.4-10.4) fL Immature Gran % (Auto) % Neut % (Auto) % Lymph % (Auto) % Charles % (Auto) % Eos % (Auto) % Baso % (Auto) % Immature Gran # (Auto) (0.00-0.02) K/uL Neut # (Auto) (1.4-6.5) K/uL Lymph # (Auto) (1.2-3.4) K/uL Charles # (Auto) (0.11-0.59) K/uL Eos # (Auto) (0-0.5) K/uL Baso # (Auto) (0-0.2) K/uL ESR (0-14) mm/hr PT (9.0-12.0) Seconds INR (0.9-1.1) APTT (21.0-31.0) Seconds PTT Ratio VBG pH 7.34 L (7.36-7.41) VBG pCO2 62 H (38-50) mmHg VBG pO2 25 mmHg VBG HCO3 33 mmol/L VBG O2 Saturation < 60.0 % VBG Base Excess 5.3 mEq/L Barometric Pressure 739.8 mm/Hg Sodium (136-145) mmol/L Potassium (3.5-5.1) mmol/L Chloride (98-107) mmol/L Carbon Dioxide (21-32) mmol/L Anion Gap (3-11) BUN (7-18) mg/dl Creatinine (0.6-1.4) mg/dl Est Cr Clr Drug Dosing ml/min Est GFR ( Amer) Est GFR (Non-Af Amer) BUN/Creatinine Ratio (10-20) Glucose (70-99) mg/dl Lactate 0.9 (0.4-2.0) mmol/L Calcium (8.5-10.1) mg/dl Phosphorus (2.5-4.9) mg/dl Magnesium (1.8-2.4) mg/dl Total Bilirubin (0.2-1) mg/dl Direct Bilirubin (0-0.2) mg/dl AST (15-37) U/L ALT (12-78) U/L Alkaline Phosphatase (45-117) U/L Total Creatine Kinase (39-308) U/L Troponin I (0-0.045) ng/ml C-Reactive Protein (0-0.29) mg/dl Total Protein (6.4-8.2) gm/dl Albumin (3.4-5.0) gm/dl Globulin (2.5-4.0) gm/dl Albumin/Globulin Ratio (0.9-2) Procalcitonin (0-0.5) ng/ml TSH (0.300-4.500) uIu/ml Urine Color Urine Appearance (Clear) Urine pH (4.5-7.5) Ur Specific [place] (1.000-1.030) Urine Protein (Negative) Urine Glucose (UA) (Negative) Urine Ketones (Negative) Urine Blood (Negative) Urine Nitrite (Negative) Urine Bilirubin (Negative) Urine Urobilinogen (Negative) Ur Leukocyte Esterase (Negative) Urine WBC (Auto) (0-5) /hpf Urine RBC (Auto) (0-4) /hpf U Hyaline Cast (Auto) (0-5) /lpf U Epithel Cells (Auto) (0-5) /lpf Urine Bacteria (Auto) (Negative) Ethyl Alcohol mg/dL < 3.0 (0-3) mg/dl Blood Type Antibody Screen 12/20/19 Range/Units 19:47 WBC (4.8-10.8) K/uL RBC (4.7-6.1) M/uL Hgb (14.0-18.0) g/dL Hct (42-52) % MCV (80-100) fL MCH (25-34) pg MCHC (32-36) g/dL RDW Std Deviation (36.4-46.3) fL RDW Coeff of Woo (11.5-14.5) % Plt Count (130-400) K/uL MPV (7.4-10.4) fL Immature Gran % (Auto) % Neut % (Auto) % Lymph % (Auto) % Charles % (Auto) % Eos % (Auto) % Baso % (Auto) % Immature Gran # (Auto) (0.00-0.02) K/uL Neut # (Auto) (1.4-6.5) K/uL Lymph # (Auto) (1.2-3.4) K/uL Charles # (Auto) (0.11-0.59) K/uL Eos # (Auto) (0-0.5) K/uL Baso # (Auto) (0-0.2) K/uL ESR (0-14) mm/hr PT (9.0-12.0) Seconds INR (0.9-1.1) APTT (21.0-31.0) Seconds PTT Ratio VBG pH (7.36-7.41) VBG pCO2 (38-50) mmHg VBG pO2 mmHg VBG HCO3 mmol/L VBG O2 Saturation % VBG Base Excess mEq/L Barometric Pressure mm/Hg Sodium (136-145) mmol/L Potassium (3.5-5.1) mmol/L Chloride (98-107) mmol/L Carbon Dioxide (21-32) mmol/L Anion Gap (3-11) BUN (7-18) mg/dl Creatinine (0.6-1.4) mg/dl Est Cr Clr Drug Dosing ml/min Est GFR ( Amer) Est GFR (Non-Af Amer) BUN/Creatinine Ratio (10-20) Glucose (70-99) mg/dl Lactate (0.4-2.0) mmol/L Calcium (8.5-10.1) mg/dl Phosphorus (2.5-4.9) mg/dl Magnesium (1.8-2.4) mg/dl Total Bilirubin (0.2-1) mg/dl Direct Bilirubin (0-0.2) mg/dl AST (15-37) U/L ALT (12-78) U/L Alkaline Phosphatase (45-117) U/L Total Creatine Kinase (39-308) U/L Troponin I (0-0.045) ng/ml C-Reactive Protein (0-0.29) mg/dl Total Protein (6.4-8.2) gm/dl Albumin (3.4-5.0) gm/dl Globulin (2.5-4.0) gm/dl Albumin/Globulin Ratio (0.9-2) Procalcitonin (0-0.5) ng/ml TSH (0.300-4.500) uIu/ml Urine Color Yellow Urine Appearance Clear (Clear) Urine pH 5.0 (4.5-7.5) Ur Specific [place] 1.014 (1.000-1.030) Urine Protein Negative (Negative) Urine Glucose (UA) Negative (Negative) Urine Ketones Negative (Negative) Urine Blood Negative (Negative) Urine Nitrite Negative (Negative) Urine Bilirubin Negative (Negative) Urine Urobilinogen Negative (Negative) Ur Leukocyte Esterase Trace H (Negative) Urine WBC (Auto) 1-5 (0-5) /hpf Urine RBC (Auto) 0-4 (0-4) /hpf U Hyaline Cast (Auto) 10-30 H (0-5) /lpf U Epithel Cells (Auto) 5-10 H (0-5) /lpf Urine Bacteria (Auto) Negative (Negative) Ethyl Alcohol mg/dL (0-3) mg/dl Blood Type Antibody Screen Administered Medications Sodium Chloride (Nss 1000ml) 1,000 mls @ 100 mls/hr IV .Q10H IRVIN Stop: 01/19/20 23:46 Last Admin: 12/21/19 01:37 Dose: 100 mls/hr Documented by: [id number] Discontinued Medications Diphtheria/Pertussis/Tetanus Vacc (Adacel) 0.5 ml IM .ONCE ONE Stop: 12/20/19 20:08 Last Admin: 12/20/19 20:31 Dose: 0.5 ml Documented by: [id number] Sodium Chloride (Nss 1000ml) 1,000 mls @ 999 mls/hr IV .Q1H1M ONE Stop: 12/20/19 18:56 Last Infusion: 12/20/19 19:29 Dose: 0 mls/hr Documented by: [id number] Admin: 12/20/19 18:11 Dose: 999 mls/hr Documented by: [id number] Vancomycin HCl 2,000 mg/ (Sodium Chloride) 540 mls @ 200 mls/hr IV NOW ONE Stop: 12/20/19 22:29 Last Infusion: 12/21/19 00:57 Dose: 0 mls/hr Documented by: [id number] Admin: 12/20/19 21:42 Dose: 200 mls/hr Documented by: [id number] Cefepime HCl (Maxipime) 2,000 mg in 20 mls @ 5 mls/min IV NOW STA Stop: 12/20/19 19:52 Last Admin: 12/20/19 20:30 Dose: 5 mls/min Documented by: [id number] Metronidazole (Flagyl) 500 mg in 100 mls @ 100 mls/hr IV NOW STA Stop: 12/20/19 20:49 Last Infusion: 12/20/19 21:43 Dose: 0 mls/hr Documented by: [id number] Admin: 12/20/19 20:37 Dose: 100 mls/hr Documented by: [id number] Sodium Chloride (Nss 1000ml) 1,000 mls @ 999 mls/hr IV .Q1H1M ONE Stop: 12/20/19 21:14 Last Infusion: 12/20/19 21:43 Dose: 0 mls/hr Documented by: [id number] Admin: 12/20/19 20:34 Dose: 999 mls/hr Documented by: [id number] Imaging Data Radiologist's Impression: SINGLE VIEW CHEST CLINICAL HISTORY: Sepsis. FINDINGS: An AP, portable, upright chest radiograph is compared to study dated 04/21/2019 and correlated with chest CT dated 05/14/2017. The examination is degraded by portable technique and patient rotation. The heart is enlarged. There is mild pulmonary vascular congestion. Calcified mediastinal lymph nodes are similar to previous. There are small pleural effusions with bibasilar consolidation. Calcified pleural plaque is again seen at the right lung base. No pneumothorax is seen. The skeletal structures are osteopenic. The bony thorax is grossly intact. Degenerative change is noted in the shoulders and thoracic spine. Calcified splenic granulomas are again seen in the left upper quadrant. IMPRESSION: 1. Cardiomegaly with mild pulmonary vascular congestion. 2. Small pleural effusions with bibasilar consolidation. This likely represents atelectasis and clinical correlation will be required. -- LEFT TIBIA AND FIBULA 2 VIEWS CLINICAL HISTORY: Left lower extremity cellulitis. FINDINGS: AP and lateral views of the left tibia and fibula are obtained. No prior studies are available for comparison at the time of dictation. The skeletal structures are osteopenic. No fracture is seen. No bony erosion is identified. Minimal benign appearing periostitis is noted along the distal fibular shaft. Smooth cortical thickening along the posterior tibial shaft is of doubtful significance. The knee and ankle joints are grossly intact noting degenerative change. Soft tissue edema is noted in the left lower extremity. There is advanced atherosclerotic calcification of the regional arteries. There are large dorsal and plantar calcaneal enthesophytes. IMPRESSION: Soft tissue edema with no acute bony abnormality identified. Electronically signed by: Mauri Padilla M.D. 12/20/2019 7:03 PM - RIGHT TIBIA AND FIBULA 2 VIEWS CLINICAL HISTORY: Cellulitis. FINDINGS: AP and lateral views of the right tibia and fibula are compared to study dated 01/05/2019. The skeletal structures are osteopenic. No fracture is identified. There is no bony erosion. Minimal benign appearing periostitis is noted along the distal fibula. This is unchanged from previous and likely related to chronic stasis. The knee and ankle joints are grossly maintained noting degenerative change. Soft tissue edema is present in the right lower extremity. Advanced atherosclerotic calcification is noted in the regional arteries. IMPRESSION: Soft tissue edema with no acute bony abnormality identified. - CT SCAN OF THE BRAIN WITHOUT IV CONTRAST CLINICAL HISTORY: Change in mental status COMPARISON STUDY: CT of the brain dated 04/21/2019. TECHNIQUE: Unenhanced axial CT scan of the brain is performed from the vertex to the skull base. A dose lowering technique was utilized adhering to the principles of ALARA. The patient was scanned twice due to motion artifact. CT DOSE: 1277.12 mGycm FINDINGS: Brain parenchyma: There are age-related involutional changes noting mild subcortical and periventricular microangiopathic change. There is no hemorrhage, mass effect, or evidence of acute territorial ischemia by CT criteria. Alcantar- white matter differentiation is preserved. No extra-axial fluid collection is seen. Ventricles, sulci, cisterns: Prominent secondary to involutional change. Intracranial vasculature: There is atherosclerotic calcification of the cavernou s carotid and vertebral arteries. Calvarium: Unremarkable. Sinuses and mastoids: An 8 mm retention cyst is noted in the right maxillary antrum. The visualized paranasal sinuses are otherwise clear. The mastoid air cells are well pneumatized. Orbits: The bony orbits are grossly intact. There are bilateral ocular lens implants. IMPRESSION: There is no hemorrhage, mass effect, or evidence of acute territorial ischemia by CT criteria. -- CT SCAN OF THE ABDOMEN AND PELVIS WITHOUT IV CONTRAST CLINICAL HISTORY: Generalized abdominal pain. Melanotic stool. COMPARISON STUDY: Abdominal CT dated 09/26/2014. TECHNIQUE: CT scan of the abdomen and pelvis is performed from the lung bases to the proximal femora. Images are reviewed in the axial, sagittal, and coronal planes. IV contrast was not administered for this examination as per the referring clinician. Note that the examination was performed in suboptimal fashion without oral and IV contrast. A dose lowering technique was utilized a dhering to the principles of ALARA. CT DOSE: 998.31 mGycm FINDINGS: Lung bases: The heart is normal in size and without pericardial effusion. The coronary arteries are densely calcified. There is a tiny hiatal hernia. There are small right and trace left pleural effusions. Calcified pleural plaque is noted at both lung bases. Round atelectasis is again seen at the right lung base. Calcified mediastinal nodes are partially imaged. Gynecomastia is noted. Liver: The unenhanced liver is normal in size, contour, and attenuation. There is no intrahepatic biliary ductal dilatation. There are numerous tiny calcified hepatic granulomas. Gallbladder: The gallbladder is not distended. There are numerous calcified gallstones. The gallbladder wall appears thickened and irregular. There is no significant surrounding inflammation. Adenomyomatosis is questioned in the fundal region. Spleen: Normal in size and attenuation. There are numerous calcified splenic granulomas. Pancreas: The unenhanced pancreas is atrophic and not well evaluated. Numerous small cystic foci are again seen in the pancreatic head. 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 Adrenal glands: Chronic thickening of the adrenal glands is unchanged from previous. Kidneys: The unenhanced kidneys are atrophic and without hydronephrosis. There are at least 2 left renal calculi which measure up to 2.3 cm. An 8 mm nonobstructing calculus is present in the right kidney. No ureteral stone is seen. A 2.5 cm exophytic cyst arises from the left kidney. Additional subcentim eter cortical hypodensities also likely represent cysts but are too small for definitive characterization. Abdominal vasculature: The abdominal aorta is normal in course and caliber noting advanced atherosclerotic calcification. Mild periaortic soft tissue thickening is unchanged from 2015. Varicose changes of the left common iliac chain vein have increased from 2015. The IVC is diminutive and may be occluded. An infrarenal IVC filter is in place. There are numerous superficial and deep venous collaterals identified in the pelvis. Bowel: There is moderate colonic diverticulosis without CT evidence of acute diverticulitis. No bowel obstruction is identified. The appendix is well-visualized and normal. Peritoneum: There is no intraperitoneal free air or abdominal ascites. Lymphadenopathy: None. Pelvic viscera: The prostate gland is atrophic and heterogeneous. The bladder wall is mildly thickened and trabeculated indicating chronic outlet obstruction. Numerous perivesicular collaterals are noted. Skeletal structures: The skeletal structures are osteopenic. Advanced spondylotic change and postoperative change is noted in the lumbar spine. Degenerative change is also seen in the hips and sacroiliac joints. No lytic or blastic lesions are seen. IMPRESSION: 1. Cholelithiasis. Gallbladder wall thickening and irregularity is most suggestive of adenomyomatosis. If there is strong clinical concern for acute cholecystitis a right upper quadrant ultrasound should be considered. 2. Bilateral nephrolithiasis. 3. Chronic venous changes are again seen involving the IVC and pelvic veins with an IVC filter in place and numerous collaterals. 4. Moderate colonic diverticulosis without CT evidence of acute diverticulitis. 5. Right larger than left pleural effusions and bibasilar pleural calcifications similar to previous. 6. Additional findings as above. ACT 112: Negative or not required by law. -- Blood Pressure Blood Pressure Findings: Low blood pressure Blood Pressure Disposition: further management by hospitalist Discharge Plan Visit Data *Final* Discharge Date/Time: 12/20/19 22:54 Chief Complaint: Confusion Stated Complaint: AMS, L FOOT PAIN, DARK TARRY STOOLS ED Provider: Emanuel Fernández Discharge Problem: Acute renal failure, Cellulitis of both lower extremities, Altered mental status, Heme positive stool Patient Disposition: Admitted As Inpatient Discharge Instructions Interventions: ED Discharge Assessment Last Done: 12/20/19 22:54 Discharge Problem: Acute renal failure Qualifiers: Acute renal failure type: unspecified Qualified Code(s): N17.9 - Acute kidney failure, unspecified Altered mental status Qualifiers: Altered mental status type: unspecified Qualified Code(s): R41.82 - Altered mental status, unspecified
[2019-12-20 18:16] LABS: Partial Thromboplastin Ratio 0.9; Partial Thromboplastin Time 24.4 Seconds (21.0-31.0); Prothrombin Time 10.6 Seconds (9.0-12.0)
[2019-12-20 18:22] LABS: Hematocrit (blood only) 41.5 % (42-52); Hemoglobin 13.6 g/dL (14.0-18.0); Mean Corpuscular Hemoglobin 30.2 pg (25-34); Mean Corpuscular Hgb Conc 32.8 g/dL (32-36); RDW Coefficient of Variation 16.2 % (11.5-14.5); RDW Standard Deviation 54.3 fL (36.4-46.3); Red Blood Count 4.51 M/uL (4.7-6.1); White Blood Count 7.06 K/uL (4.8-10.8)
[2019-12-20 18:36] LABS: Base Excess VBG 5.3 mEq/L; HCO3 VBG 33 mmol/L; PCO2 VBG 62 mmHg (38-50); PO2 VBG 25 mmHg; pH VBG 7.34 (7.36-7.41)
[2019-12-20 18:40] LABS: Basophils # (auto) 0.03 K/uL (0-0.2); Basophils % (auto) 0.4 %; Eosinophils # (auto) 0.22 K/uL (0-0.5); Eosinophils % (auto) 3.1 %; Immature Granulocytes # (auto) 0.04 K/uL (0.00-0.02); Immature Granulocytes % (auto) 0.6 %; Lymphocytes # (auto) 1.24 K/uL (1.2-3.4); Lymphocytes % (auto) 17.6 %; Monocytes # (auto) 0.66 K/uL (0.11-0.59); Monocytes % (auto) 9.3 %; Neutrophils # (auto) 4.87 K/uL (1.4-6.5)
[2019-12-20 18:41] LABS: Alanine Aminotransferase 17 U/L (12-78); Albumin Globulin Ratio 0.8 (0.9-2); Albumin Level 3.1 gm/dl (3.4-5.0); Alkaline Phosphatase 104 U/L (45-117); Aspartate Aminotransferase 17 U/L (15-37); BUN Creatinine Ratio 26.3 (10-20); Bilirubin,Total 0.2 mg/dl (0.2-1); Blood Urea Nitrogen 80 mg/dl (7-18); C Reactive Protein 2.27 mg/dl (0-0.29); Calcium 9.2 mg/dl (8.5-10.1); Carbon Dioxide 28 mmol/L (21-32); Chloride 97 mmol/L (98-107); Creatine Kinase 83 U/L (39-308); Creatinine Clr Calc Pharmacy 24.6 ml/min; Est GFR (African American) 21.8; Est GFR (Non-African American) 18.8; Globulin 3.7 gm/dl (2.5-4.0); Glucose 130 mg/dl (70-99); Magnesium 3.3 mg/dl (1.8-2.4); Phosphorus 5.3 mg/dl (2.5-4.9); Potassium 5.1 mmol/L (3.5-5.1); Sodium 135 mmol/L (136-145); Total Protein 6.8 gm/dl (6.4-8.2); Troponin I < 0.015 ng/ml (0-0.045)
[2019-12-20 18:46] LABS: Oxygen Saturation VBG < 60.0 %
--- NOTE | 2019-12-20 18:56 | XRay Report ---
RIGHT TIBIA AND FIBULA 2 VIEWS CLINICAL HISTORY: Cellulitis. FINDINGS: AP and lateral views of the right tibia and fibula are compared to study dated 01/05/2019. Th e skeletal structures are osteopenic. No fracture is identified. There is no bony erosion. Minimal be nign appearing periostitis is noted along the distal fibula. This is unchanged from previous and like ly related to chronic stasis. The knee and ankle joints are grossly maintained noting degenerative ch mary. Soft tissue edema is present in the right lower extremity. Advanced atherosclerotic calcificati on is noted in the regional arteries. IMPRESSION: Soft tissue edema with no acute bony abnormality identified. Electronically signed by: Mauri Padilla M.D. 12/20/2019 6:55 PM
--- NOTE | 2019-12-20 19:01 | XRay Report ---
SINGLE VIEW CHEST CLINICAL HISTORY: Sepsis. FINDINGS: An AP, portable, upright chest radiograph is compared to study dated 04/21/2019 and correlat ed with chest CT dated 05/14/2017. The examination is degraded by portable technique and patient rota tion. The heart is enlarged. There is mild pulmonary vascular congestion. Calcified mediastinal lymph nodes are similar to previous. There are small pleural effusions with bibasilar consolidation. Calci fied pleural plaque is again seen at the right lung base. No pneumothorax is seen. The skeletal struc tures are osteopenic. The bony thorax is grossly intact. Degenerative change is noted in the shoulder s and thoracic spine. Calcified splenic granulomas are again seen in the left upper quadrant. IMPRESSION: 1. Cardiomegaly with mild pulmonary vascular congestion. 2. Small pleural effusions with bibasilar consolidation. This likely represents atelectasis and clini saravanan correlation will be required. ACT 112: Negative or not required by law. Electronically signed by: Mauri Padilla M.D. 12/20/2019 7:00 PM
--- NOTE | 2019-12-20 19:04 | XRay Report ---
LEFT TIBIA AND FIBULA 2 VIEWS CLINICAL HISTORY: Left lower extremity cellulitis. FINDINGS: AP and lateral views of the left tibia and fibula are obtained. No prior studies are availa ble for comparison at the time of dictation. The skeletal structures are osteopenic. No fracture is s een. No bony erosion is identified. Minimal benign appearing periostitis is noted along the distal fi bular shaft. Smooth cortical thickening along the posterior tibial shaft is of doubtful significance. The knee and ankle joints are grossly intact noting degenerative change. Soft tissue edema is noted in the left lower extremity. There is advanced atherosclerotic calcification of the regional arteries . There are large dorsal and plantar calcaneal enthesophytes. IMPRESSION: Soft tissue edema with no acute bony abnormality identified. Electronically signed by: Mauri Padilla M.D. 12/20/2019 7:03 PM
--- NOTE | 2019-12-20 19:14 | CT Scan Report ---
CT SCAN OF THE BRAIN WITHOUT IV CONTRAST CLINICAL HISTORY: Change in mental status COMPARISON STUDY: CT of the brain dated 04/21/2019. TECHNIQUE: Unenhanced axial CT scan of the brain is performed from the vertex to the skull base. A do se lowering technique was utilized adhering to the principles of ALARA. The patient was scanned twice due to motion artifact. CT DOSE: 1277.12 mGycm FINDINGS: Brain parenchyma: There are age-related involutional changes noting mild subcortical and periventric ular microangiopathic change. There is no hemorrhage, mass effect, or evidence of acute territorial i schemia by CT criteria. Alcantar-white matter differentiation is preserved. No extra-axial fluid collecti on is seen. Ventricles, sulci, cisterns: Prominent secondary to involutional change. Intracranial vasculature: There is atherosclerotic calcification of the cavernous carotid and vertebr al arteries. Calvarium: Unremarkable. Sinuses and mastoids: An 8 mm retention cyst is noted in the right maxillary antrum. The visualized p aranasal sinuses are otherwise clear. The mastoid air cells are well pneumatized. Orbits: The bony orbits are grossly intact. There are bilateral ocular lens implants. IMPRESSION: There is no hemorrhage, mass effect, or evidence of acute territorial ischemia by CT crit daisy. ACT 112: Negative or not required by law. Electronically signed by: Mauri Padilla M.D. 12/20/2019 7:13 PM
[2019-12-20 19:18] LABS: Bilirubin Direct < 0.1 mg/dl (0-0.2)
--- NOTE | 2019-12-20 19:43 | CT Scan Report ---
CT SCAN OF THE ABDOMEN AND PELVIS WITHOUT IV CONTRAST CLINICAL HISTORY: Generalized abdominal pain. Melanotic stool. COMPARISON STUDY: Abdominal CT dated 09/26/2014. TECHNIQUE: CT scan of the abdomen and pelvis is performed from the lung bases to the proximal femora. Images are reviewed in the axial, sagittal, and coronal planes. IV contrast was not administered for this examination as per the referring clinician. Note that the examination was performed in suboptim al fashion without oral and IV contrast. A dose lowering technique was utilized adhering to the princ iples of GEORGE. CT DOSE: 998.31 mGycm FINDINGS: Lung bases: The heart is normal in size and without pericardial effusion. The coronary arteries are d ensely calcified. There is a tiny hiatal hernia. There are small right and trace left pleural effusio ns. Calcified pleural plaque is noted at both lung bases. Round atelectasis is again seen at the righ t lung base. Calcified mediastinal nodes are partially imaged. Gynecomastia is noted. Liver: The unenhanced liver is normal in size, contour, and attenuation. There is no intrahepatic ede iary ductal dilatation. There are numerous tiny calcified hepatic granulomas. Gallbladder: The gallbladder is not distended. There are numerous calcified gallstones. The gallbladd er wall appears thickened and irregular. There is no significant surrounding inflammation. Adenomyoma tosis is questioned in the fundal region. Spleen: Normal in size and attenuation. There are numerous calcified splenic granulomas. Pancreas: The unenhanced pancreas is atrophic and not well evaluated. Numerous small cystic foci are again seen in the pancreatic head. When correlated with the 2015 examination these and likely represe nt numerous sidebranch IPMNs. Adrenal glands: Chronic thickening of the adrenal glands is unchanged from previous. Kidneys: The unenhanced kidneys are atrophic and without hydronephrosis. There are at least 2 left re nal calculi which measure up to 2.3 cm. An 8 mm nonobstructing calculus is present in the right kidne y. No ureteral stone is seen. A 2.5 cm exophytic cyst arises from the left kidney. Additional subcent imeter cortical hypodensities also likely represent cysts but are too small for definitive characteri zation. Abdominal vasculature: The abdominal aorta is normal in course and caliber noting advanced atheroscle rotic calcification. Mild periaortic soft tissue thickening is unchanged from 2015. Varicose changes of the left common iliac chain vein have increased from 2015. The IVC is diminutive and may be occlud ed. An infrarenal IVC filter is in place. There are numerous superficial and deep venous collaterals identified in the pelvis. Bowel: There is moderate colonic diverticulosis without CT evidence of acute diverticulitis. No bowel obstruction is identified. The appendix is well-visualized and normal. Peritoneum: There is no intraperitoneal free air or abdominal ascites. Lymphadenopathy: None. Pelvic viscera: The prostate gland is atrophic and heterogeneous. The bladder wall is mildly thickene d and trabeculated indicating chronic outlet obstruction. Numerous perivesicular collaterals are note d. Skeletal structures: The skeletal structures are osteopenic. Advanced spondylotic change and postoper ative change is noted in the lumbar spine. Degenerative change is also seen in the hips and sacroilia c joints. No lytic or blastic lesions are seen. IMPRESSION: 1. Cholelithiasis. Gallbladder wall thickening and irregularity is most suggestive of adenomyomatosis . If there is strong clinical concern for acute cholecystitis a right upper quadrant ultrasound shoul d be considered. 2. Bilateral nephrolithiasis. 3. Chronic venous changes are again seen involving the IVC and pelvic veins with an IVC filter in sumanth ce and numerous collaterals. 4. Moderate colonic diverticulosis without CT evidence of acute diverticulitis. 5. Right larger than left pleural effusions and bibasilar pleural calcifications similar to previous. 6. Additional findings as above. ACT 112: Negative or not required by law. Electronically signed by: Mauri Padilla M.D. 12/20/2019 7:42 PM
[2019-12-20] MEDS ORDERED: VANCOMYCIN HCL 2,000 MG in SODIUM CHLORIDE 0.9% 500 ML IV ONE (19:48)
[2019-12-20] MEDS ORDERED: VANCOMYCIN CONSULT ACTIVE PRN ×2 (19:48→23:47)
[2019-12-20] MEDS ORDERED: CEFEPIME 2,000 MG/20 ML VIAL IV STA (19:49)
[2019-12-20] MEDS ORDERED: metroNIDAZOLE 500 MG/100 ML BAG IV STA (19:50)
[2019-12-20 20:00] LABS: Appearance Urine Clear (Clear); Bacteria Urine Automated Negative (Negative); Bilirubin Urine Negative (Negative); Blood Urine Negative (Negative); Color Urine Yellow; Glucose Urine UA Negative (Negative); Ketones Urine Negative (Negative); Leukocyte Esterase Urine Trace (Negative); Nitrite Urine Negative (Negative); Protein Urine Negative (Negative); RBC Urine Automated 0-4 /hpf (0-4); Specific Gravity Urine 1.014 (1.000-1.030); Urobilinogen Urine Negative (Negative)
[2019-12-20] MEDS ORDERED: DIPHTHERIA/TETANUS/PERTUSSIS 0.5 ML SYR/VIAL IM ONE (20:07)
--- NOTE | 2019-12-20 22:07 | History & Physical Report ---
Date of Service December 20, 2019 Assessment & Plan (1) Venous stasis ulcers of both lower extremities: Venous stasis ulcers of bilateral lower extremities, left worse than right/cellulitis of both lower extremities- Continue vancomycin IV, cefepime IV and Flagyl IV as begun in the ED. Consult wound care. Present on Admission?: Yes (2) Cellulitis of both lower extremities: See above Present on Admission?: Yes (3) Thickening of wall of gallbladder: Noted on CT of abdomen and pelvis, with normal liver tests. Repeat laboratories in a.m. Will order ultrasound of right upper quadrant, as suggested by radiology. Present on Admission?: Yes (4) Heme positive stool: Patient noted to have trace heme positive stool while in the ED, and portal reported symptoms were black stools noted over the past 2 to 4 days prior to arrival. Place on pantoprazole 40 mg IV daily. Follow serial laboratories. NPO Unclear extent of potential bleeding. Repeat H&H in a few hours, and if lower, consult gastroenterology Present on Admission?: Yes (5) Hypotension: Initial blood pressure upon presentation to the ED was 80/60. Patient has responded to IV fluid rehydration, with pressure increased to 91/54. Follow vital signs serially. Hypotension is likely secondary to infection, although we will follow hemoglobin closely due to trace heme positive stools to see how much of a role anemia and blood loss may play. Hold all antihypertensives as noted. Present on Admission?: Yes (6) Acute renal failure: Creatinine 3.05, with baseline 1.21-1.58. Repeat laboratories in a.m. after rehydration with IV fluids. Present on Admission?: Yes (7) Paroxysmal atrial fibrillation: Paroxysmal atrial fibrillation/hypertension- Hold metoprolol tartrate, Cardizem CD, labetalol, spironolactone and aspirin due to hypotension and heme positive stools. Present on Admission?: Yes (8) Peripheral neuropathy: Hold gabapentin while n.p.o. Present on Admission?: Yes (9) Asthma: Duonebs every 4 hours while awake and every 2 hours when necessary. Present on Admission?: Yes (10) Hypertension: See above Present on Admission?: Yes (11) IDDM (insulin dependent diabetes mellitus): Place on Accu-Cheks AC and at bedtime/every 6 hours while n.p.o. Reduce 70/30 units from 25 to 10 units subcu twice daily. Present on Admission?: Yes (12) Hyperlipidemia: Hold simvastatin Present on Admission?: Yes (13) CHF (congestive heart failure): See above Present on Admission?: Yes (14) Sacral decubitus ulcer, stage II: Placed on decubitus precautions, and consult wound care Present on Admission?: Yes Admission and Anticipated Discharge Date Admission Date: 12/20/2019 Anticipated date of discharge: 12/23/19 History of Present Illness Chief Complaint: The patient presents to the emergency department for assessment of worsening confusion, dark stools noted over the past week, and bilateral lower extremity wounds, left greater than right, thought to be associated with an accident with tractor equipment 4 days previously, although patient reports that these wounds are associated with blebs that he mechanically broke. Primary Care Provider: Giorgio Louis MD The patient is a 79-year-old male with a past medical history including dementia, paroxysmal atrial fibrillation, asthma, peripheral neuropathy, hypertension, venous stasis ulcers of bilateral lower extremities, chronic venous insufficiency, diabetes mellitus, lumbar spinal stenosis, CHF, cardiac dysrhythmia, DVT and left pleural effusion. He presents to the emergency depart ment with the above symptoms. His history is somewhat limited, due to underlying dementia. He reports to me that his lower extremity wounds are related to blebs that he mechanically broke open, and was not related to trauma related to tractor equipment as was reported by others. Work-up in the emergency department included laboratory significant for: Creatinine of 3.2, faintly heme positive stools, CT of head, abdomen and pelvis all negative for acute process. He was started on broad-spectrum antibiotics in the ED, vancomycin IV, cefepime IV and Flagyl IV. He is noted to be allergic to pe nicillins, and therefore he will be made on the same antibiotic treatment regimen. The patient also did describe some burning in his sacral/intergluteal area, it was noted to have an early stage II decubitus ulcer. Allergies Allergy/AdvReac Type Severity Reaction Status Date / Time Penicillins Allergy Unknown RASH Verified 08/07/19 13:44 Home Medications Home Medications Medication Instructions Recorded Confirmed Type aspirin 81 mg tablet,delayed 81 mg PO DAILY 07/20/18 12/20/19 History release diltiazem HCl 240 mg capsule,24 240 mg PO DAILY 07/20/18 12/20/19 History hr,extended release furosemide 40 mg tablet 80 mg PO BID tab 07/20/18 12/20/19 History gabapentin 300 mg capsule 300 mg PO TID 07/20/18 12/20/19 History labetalol 300 mg tablet 300 mg PO BID 07/20/18 12/20/19 History potassium chloride 10 mEq 10 meq PO DAILY 07/20/18 12/20/19 History tablet,extended release simvastatin 40 mg tablet 40 mg PO QPM 07/20/18 12/20/19 History spironolactone 25 mg tablet 25 mg PO DAILY 03/15/19 12/20/19 History acetaminophen [Tylenol Extra 1,500 mg PO Q6H PRN 04/21/19 12/20/19 History Strength] Novolin 70/30 U-100 Insulin 25 units SQ BID #0 ml 04/23/19 12/20/19 Rx albuterol sulfate 90 mcg/actuation 2 puffs INHALATION Q4H PRN #1 gm 05/08/19 12/20/19 History aerosol inhaler metoprolol tartrate 100 mg tablet 100 mg PO BID tab 05/08/19 12/20/19 History nitroglycerin 0.6 mg sublingual 0.6 mg SL PRN PRN tab 05/08/19 12/20/19 History tablet ipratropium-albuterol 3 ml INHALATION QID 12/20/19 12/20/19 History metolazone 2.5 mg PO Q2D 12/20/19 12/20/19 History Past Med/Surg History Social History Preferred Language: Yi Communication Ability: Effective Visual Impairment: No Limitations Hearing Ability: Normal Glove Presser Required: No Beliefs That Will Affect Care: None marital status: Current Living Situation: Spouse current occupational status: retired Feels Safe at Home: Yes Smoking Status: Former smoker Hx Alcohol Use: No Hx Substance Use: No Review of Systems Review of Systems: The patient denies chest pain, palpitations, shortness of breath, dyspnea on exertion, cough, sore throat, fevers, chills, sweats, nausea, vomiting, diarrhea , constipation, abdominal pain, pelvic pain, blood in urine or stool, dysuria, urinary frequency or urgency, lightheadedness, dizziness, headache, loss of consciousness, imbalance, focal weakness, numbness or tingling in arms or legs, generalized arthralgias or myalgias, back or neck pain, or night sweats. The review of systems is otherwise negative other than for that already noted above, and at least 10 systems have been reviewed. Physical Exam Physical Exam: The patient is awake, well developed and well nourished, normocephalic and atraumatic, lying in bed and in no acute distress. HEENT--PERRL, EOMI, mucous membranes and oropharynx dry. Neck--supple. No JVD. No bruits. Thyroid normal, trachea midline, no adenopathy. Heart--normal S1 and S2. No murmurs, rubs or gallops. Lungs--clear bilaterally, no respiratory distress, no accessory muscle use. Abdomen--normal bowel sounds and soft. Nontender. Nondistended. Extremities--no cyanosis or clubbing. No edema. Dermatologic--multiple surface abrasions on shins, left greater than right, with chronic venous stasis dermatitis changes bilaterally. Neurologic--cranial nerves II through XII grossly intact. Rheumatologic--normal range of motion. Psychiatric--normal affect. Results & Data Results & Data ([place]) Vital Signs (Past 12 Hours) Vital Signs Temp Pulse Pulse Resp BP BP Pulse Ox 12/20/19 22:00 66 17 101/53 L 90 12/20/19 21:30 66 14 103/60 91 12/20/19 21:01 68 21 104/62 93 12/20/19 20:30 61 15 91/54 L 95 12/20/19 19:43 63 18 94/58 L 97 12/20/19 18:58 109/52 L 12/20/19 18:45 62 98 12/20/19 18:30 82/52 L 93 12/20/19 18:25 16 94 12/20/19 18:00 92 H 16 92/53 L 92/53 L 95 12/20/19 17:29 99.5 F 86 86 16 84/54 L 84/54 L 94 Laboratory Results Laboratory Results WBC 7.06 K/uL (4.8-10.8) 12/20/19 17:11 RBC 4.51 M/uL (4.7-6.1) L 12/20/19 17:11 Hgb 13.6 g/dL (14.0-18.0) L 12/20/19 17:11 Hct 41.5 % (42-52) L 12/20/19 17:11 MCV 92.0 fL (80-100) 12/20/19 17:11 MCH 30.2 pg (25-34) 12/20/19 17:11 MCHC 32.8 g/dL (32-36) 12/20/19 17:11 RDW Std Deviation 54.3 fL (36.4-46.3) H 12/20/19 17:11 RDW Coeff of Woo 16.2 % (11.5-14.5) H 12/20/19 17:11 Plt Count K/uL (130-400) 12/20/19 17:11 MPV fL (7.4-10.4) 12/20/19 17:11 Immature Gran % (Auto) 0.6 % 12/20/19 17:11 Neut % (Auto) 69.0 % 12/20/19 17:11 Lymph % (Auto) 17.6 % 12/20/19 17:11 [place] % (Auto) 9.3 % 12/20/19 17:11 Eos % (Auto) 3.1 % 12/20/19 17:11 Baso % (Auto) 0.4 % 12/20/19 17:11 Immature Gran # (Auto) 0.04 K/uL (0.00-0.02) H 12/20/19 17:11 Neut # (Auto) 4.87 K/uL (1.4-6.5) 12/20/19 17:11 Lymph # (Auto) 1.24 K/uL (1.2-3.4) 12/20/19 17:11 [place] # (Auto) 0.66 K/uL (0.11-0.59) H 12/20/19 17:11 Eos # (Auto) 0.22 K/uL (0-0.5) 12/20/19 17:11 Baso # (Auto) 0.03 K/uL (0-0.2) 12/20/19 17:11 ESR 32 mm/hr (0-14) H 12/20/19 17:11 PT 10.6 Seconds (9.0-12.0) 12/20/19 17:11 INR 1.0 (0.9-1.1) 12/20/19 17:11 APTT 24.4 Seconds (21.0-31.0) 12/20/19 17:11 PTT Ratio 0.9 12/20/19 17:11 VBG pH 7.34 (7.36-7.41) L 12/20/19 18:20 VBG pCO2 62 mmHg (38-50) H 12/20/19 18:20 VBG pO2 25 mmHg 12/20/19 18:20 VBG HCO3 33 mmol/L 12/20/19 18:20 VBG O2 Saturation < 60.0 % 12/20/19 18:20 VBG Base Excess 5.3 mEq/L 12/20/19 18:20 Barometric Pressure 739.8 mm/Hg 12/20/19 18:20 Sodium 135 mmol/L (136-145) L 12/20/19 17:11 Potassium 5.1 mmol/L (3.5-5.1) 12/20/19 17:11 Chloride 97 mmol/L (98-107) L 12/20/19 17:11 Carbon Dioxide 28 mmol/L (21-32) 12/20/19 17:11 Anion Gap 10.0 (3-11) 12/20/19 17:11 BUN 80 mg/dl (7-18) H 12/20/19 17:11 Creatinine 3.05 mg/dl (0.6-1.4) H 12/20/19 17:11 Est Cr Clr Drug Dosing 24.6 ml/min 12/20/19 17:11 Est GFR ( Amer) 21.8 12/20/19 17:11 Est GFR (Non-Af Amer) 18.8 12/20/19 17:11 BUN/Creatinine Ratio 26.3 (10-20) H 12/20/19 17:11 Glucose 130 mg/dl (70-99) H 12/20/19 17:11 POC Glucose 97 mg/dl (70-99) 12/20/19 23:56 Lactate 0.9 mmol/L (0.4-2.0) 12/20/19 18:20 Calcium 9.2 mg/dl (8.5-10.1) 12/20/19 17:11 Phosphorus 5.3 mg/dl (2.5-4.9) H 12/20/19 17:11 Magnesium 3.3 mg/dl (1.8-2.4) H 12/20/19 17:11 Total Bilirubin 0.2 mg/dl (0.2-1) 12/20/19 17:11 Direct Bilirubin < 0.1 mg/dl (0-0.2) 12/20/19 17:11 AST 17 U/L (15-37) 12/20/19 17:11 ALT 17 U/L (12-78) 12/20/19 17:11 Alkaline Phosphatase 104 U/L (45-117) 12/20/19 17:11 Total Creatine Kinase 83 U/L (39-308) 12/20/19 17:11 Troponin I < 0.015 ng/ml (0-0.045) 12/20/19 17:11 C-Reactive Protein 2.27 mg/dl (0-0.29) H 12/20/19 17:11 Total Protein 6.8 gm/dl (6.4-8.2) 12/20/19 17:11 Albumin 3.1 gm/dl (3.4-5.0) L 12/20/19 17:11 Globulin 3.7 gm/dl (2.5-4.0) 12/20/19 17:11 Albumin/Globulin Ratio 0.8 (0.9-2) L 12/20/19 17:11 Procalcitonin 0.11 ng/ml (0-0.5) 12/20/19 17:11 TSH 1.480 uIu/ml (0.300-4.500) 12/20/19 17:11 Urine Color Yellow 12/20/19 19:47 Urine Appearance Clear (Clear) 12/20/19 19:47 Urine pH 5.0 (4.5-7.5) 12/20/19 19:47 Ur Specific [place] 1.014 (1.000-1.030) 12/20/19 19:47 Urine Protein Negative (Negative) 12/20/19 19: Urine Glucose (UA) Negative (Negative) 12/20/19 19: Urine Ketones Negative (Negative) 12/20/19 19: Urine Blood Negative (Negative) 12/20/19 19:47 Urine Nitrite Negative (Negative) 12/20/19 19:47 Urine Bilirubin Negative (Negative) 12/20/19 19:47 Urine Urobilinogen Negative (Negative) 12/20/19 19:47 Ur Leukocyte Esterase Trace (Negative) H 12/20/19 19:47 Urine WBC (Auto) 1-5 /hpf (0-5) 12/20/19 19:47 Urine RBC (Auto) 0-4 /hpf (0-4) 12/20/19 19:47 U Hyaline Cast (Auto) 10-30 /lpf (0-5) H 12/20/19 19:47 U Epithel Cells (Auto) 5-10 /lpf (0-5) H 12/20/19 19:47 Urine Bacteria (Auto) Negative (Negative) 12/20/19 19:47 Ethyl Alcohol mg/dL < 3.0 mg/dl (0-3) 12/20/19 18:20 Blood Type A Positive 12/20/19 18:20 Antibody Screen NEGATIVE 12/20/19 18:20 Diagnostic Findings [place], [place] [phone] XRay Report Patient: ANA MARÍA WATTERS Date: 12/20/19 MR#: [id number]: [address] [facility] Acct ID:[id number]: Date: 1940[facility] Zip: [place] [address] Age: 79Location: ED Sex: M Room/Bed: Att Phy:Diagnosis: AMS, L FOOT PAIN, DARK TARRY STOOLS Evy Phy: Giorgio Moncada M.D.Service Date: 12/20/19 Fam Phy:Interpreting Phy: Mauri Padilla MD Admit Phy: Ordering Phy: Emanuel Fernández M.D. cc: ~ SINGLE VIEW CHEST CLINICAL HISTORY: Sepsis. FINDINGS: An AP, portable, upright chest radiograph is compared to study dated 04/21/2019 and correlated with chest CT dated 05/14/2017. The examination is degraded by portable technique and patient rotation. The heart is enlarged. There is mild pulmonary vascular congestion. Calcified mediastinal lymph nodes are similar to previous. There are small pleural effusions with bibasilar consolidation. Calcified pleural plaque is again seen at the right lung base. No pneumothorax is seen. The skeletal structures are osteopenic. The bony thorax is grossly intact. Degenerative change is noted in the shoulders and thoracic spine. Calcified splenic granulomas are again seen in the left upper quadrant. IMPRESSION: 1. Cardiomegaly with mild pulmonary vascular congestion. 2. Small pleural effusions with bibasilar consolidation. This likely represents atelectasis and clinical correlation will be required. ACT 112: Negative or not required by law. Electronically signed by: Mauri Padilla M.D. 12/20/2019 7:00 PM Dictated: 12/20/191857 Transcribed: 12/20/191857 [place], [place] [phone] CT Scan Report Patient: ANA MARÍA WATTERS Date: 12/20/19 MR#: [id number]: [address] [facility] Acct ID:[id number]: [facility] [place] [address] Age: 79Location: ED Sex: M Room/Bed: Att Phy:Diagnosis: AMS, L FOOT PAIN, DARK TARRY STOOLS Evy Phy: Giorgio Moncada M.D.Service Date: 12/20/19 Fam Phy:Interpreting Phy: Mauri Padilla MD Admit Phy: Ordering Phy: Emanuel Fernández M.D. cc: ~ CT SCAN OF THE BRAIN WITHOUT IV CONTRAST CLINICAL HISTORY: Change in mental status COMPARISON STUDY: CT of the brain dated 04/21/2019. TECHNIQUE: Unenhanced axial CT scan of the brain is performed from the vertex to the skull base. A dose lowering technique was utilized adhering to the principles of ALARA. The patient was scanned twice due to motion artifact. CT DOSE: 1277.12 mGycm FINDINGS: Brain parenchyma: There are age-related involutional changes noting mild subcortical and periventricular microangiopathic change. There is no hemorrhage, mass effect, or evidence of acute territorial ischemia by CT criteria. Alcantar- white matter differentiation is preserved. No extra-axial fluid collection is seen. Ventricles, sulci, cisterns: Prominent secondary to involutional change. Intracranial vasculature: There is atherosclerotic calcification of the cavernous carotid and vertebral arteries. Calvarium: Unremarkable. Sinuses and mastoids: An 8 mm retention cyst is noted in the right maxillary antrum. The visualized paranasal sinuses are otherwise clear. The mastoid air cells are well pneumatized. Orbits: The bony orbits are grossly intact. There are bilateral ocular lens implants. IMPRESSION: There is no hemorrhage, mass effect, or evidence of acute territorial ischemia by CT criteria. ACT 112: Negative or not required by law. Electronically signed by: Mauri Padilla M.D. 12/20/2019 7:13 PM Dictated: 12/20/191909 Transcribed: 12/20/191909 [place], [place] [phone] XRay Report Patient: ANA MARÍA WATTERS Date: 12/20/19 MR#: [id number]: [address] [facility] Acct ID:[id number]: Date: 1940[facility] Zip: [place] [address] Age: 79Location: ED Sex: M Room/Bed: Att Phy:Diagnosis: AMS, L FOOT PAIN, DARK TARRY STOOLS Evy Phy: Giorgio Moncada M.D.Service Date: 12/20/19 [facility] Phy:Interpreting Phy: Mauri Padilla MD Admit Phy: Ordering Phy: Emanuel Fernández M.D. cc: ~ LEFT TIBIA AND FIBULA 2 VIEWS CLINICAL HISTORY: Left lower extremity cellulitis. FINDINGS: AP and lateral views of the left tibia and fibula are obtained. No prior studies are available for comparison at the time of dictation. The skeletal structures are osteopenic. No fracture is seen. No bony erosion is identified. Minimal benign appearing periostitis is noted along the distal fibular shaft. Smooth cortical thickening along the posterior tibial shaft is of doubtful significance. The knee and ankle joints are grossly intact noting degenerative change. Soft tissue edema is noted in the left lower extremity. There is advanced atherosclerotic calcification of the regional arteries. There are large dorsal and plantar calcaneal enthesophytes. IMPRESSION: Soft tissue edema with no acute bony abnormality identified. Electronically signed by: Mauri Padilla M.D. 12/20/2019 7:03 PM Dictated: 12/20/191899 Transcribed: 12/20/191899 [facility], [place] [phone] XRay Report Patient: ANA MARÍA WATTERS Date: 12/20/19 MR#: [id number]: [address] Acct ID:[id number]: Date: [address] [place] [address] Zip: [place] [address] Age: 79Location: ED Sex: M Room/Bed: Att Phy:Diagnosis: AMS, L FOOT PAIN, DARK TARRY STOOLS Evy Phy: Giorgio Moncada M.D.Service Date: 12/20/19 Fam Phy:Interpreting Phy: Mauri Padilla MD Admit Phy: Ordering Phy: Emanuel Fernández M.D. cc: ~ RIGHT TIBIA AND FIBULA 2 VIEWS CLINICAL HISTORY: Cellulitis. FINDINGS: AP and lateral views of the right tibia and fibula are compared to study dated 01/05/2019. The skeletal structures are osteopenic. No fracture is identified. There is no bony erosion. Minimal benign appearing periostitis is noted along the distal fibula. This is unchanged from previous and likely related to chronic stasis. The knee and ankle joints are grossly maintained noting degenerative change. Soft tissue edema is present in the right lower extremity. Advanced atherosclerotic calcification is noted in the regional arteries. IMPRESSION: Soft tissue edema with no acute bony abnormality identified. Electronically signed by: Mauri Padilla M.D. 12/20/2019 6:55 PM Dictated: 12/20/191852 Transcribed: 12/20/191852 [facility], [place] [phone] CT Scan Report Patient: ANA MARÍA WATTERS Date: 12/20/19 MR#: [id number]: [address] [facility] Acct ID:[id number]: Date: [address] [place] [address] Zip: [place] [address] Age: 79Location: ED Sex: M Room/Bed: Att Phy:Diagnosis: AMS, L FOOT PAIN, DARK TARRY STOOLS Evy Phy: Giorgio Moncada M.D.Service Date: 12/20/19 Fam Phy:Interpreting Phy: Mauri Padilla MD Admit Phy: Ordering Phy: Emanuel Fernández M.D. cc: ~ CT SCAN OF THE ABDOMEN AND PELVIS WITHOUT IV CONTRAST CLINICAL HISTORY: Generalized abdominal pain. Melanotic stool. COMPARISON STUDY: Abdominal CT dated 09/26/2014. TECHNIQUE: CT scan of the abdomen and pelvis is performed from the lung bases to the proximal femora. Images are reviewed in the axial, sagittal, and coronal planes. IV contrast was not administered for this examination as per the referring clinician. Note that the examination was performed in suboptimal fashion without oral and IV contrast. A dose lowering technique was utilized adhering to the principles of ALARA. CT DOSE: 998.31 mGycm FINDINGS: Lung bases: The heart is normal in size and without pericardial effusion. The coronary arteries are densely calcified. There is a tiny hiatal hernia. There are small right and trace left pleural effusions. Calcified pleural plaque is noted at both lung bases. Round atelectasis is again seen at the right lung base. Calcified mediastinal nodes are partially imaged. Gynecomastia is noted. Liver: The unenhanced liver is normal in size, contour, and attenuation. There is no intrahepatic biliary ductal dilatation. There are numerous tiny calcified hepatic granulomas. Gallbladder: The gallbladder is not distended. There are numerous calcified gallstones. The gallbladder wall appears thickened and irregular. There is no significant surrounding inflammation. Adenomyomatosis is questioned in the fundal region. Spleen: Normal in size and attenuation. There are numerous calcified splenic granulomas. Pancreas: The unenhanced pancreas is atrophic and not well evaluated. Numerous small cystic foci are again seen in the pancreatic head. 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 Adrenal glands: Chronic thickening of the adrenal glands is unchanged from previous. Kidneys: The unenhanced kidneys are atrophic and without hydronephrosis. There are at least 2 left renal calculi which measure up to 2.3 cm. An 8 mm nonobstructing calculus is present in the right kidney. No ureteral stone is seen. A 2.5 cm exophytic cyst arises from the left kidney. Additional subcentimeter cortical hypodensities also likely represent cysts but are too small for definitive characterization. Abdominal vasculature: The abdominal aorta is normal in course and caliber noting advanced atherosclerotic calcification. Mild periaortic soft tissue thickening is unchanged from 2015. Varicose changes of the left common iliac chain vein have increased from 2015. The IVC is diminutive and may be occluded. An infrarenal IVC filter is in place. There are numerous superficial and deep venous collaterals identified in the pelvis. Bowel: There is moderate colonic diverticulosis without CT evidence of acute diverticulitis. No bowel obstruction is identified. The appendix is well- visualized and normal. Peritoneum: There is no intraperitoneal free air or abdominal ascites. Lymphadenopathy: None. Pelvic viscera: The prostate gland is atrophic and heterogeneous. The bladder wall is mildly thickened and trabeculated indicating chronic outlet obstruction. Numerous perivesicular collaterals are noted. Skeletal structures: The skeletal structures are osteopenic. Advanced spondylotic change and postoperative change is noted in the lumbar spine. Degenerative change is also seen in the hips and sacroiliac joints. No lytic or blastic lesions are seen. IMPRESSION: 1. Cholelithiasis. Gallbladder wall thickening and irregularity is most suggestive of adenomyomatosis. If there is strong clinical concern for acute cholecystitis a right upper quadrant ultrasound should be considered. 2. Bilateral nephrolithiasis. 3. Chronic venous changes are again seen involving the IVC and pelvic veins with an IVC filter in place and numerous collaterals. 4. Moderate colonic diverticulosis without CT evidence of acute diverticulitis. 5. Right larger than left pleural effusions and bibasilar pleural calcifications similar to previous. 6. Additional findings as above. ACT 112: Negative or not required by law. Electronically signed by: Mauri Padilla M.D. 12/20/2019 7:42 PM Dictated: 12/20/191924 Transcribed: 12/20/191927 Code Status & VTE Plan Code Status Full code VTE Prophylaxis Plan VTE Prophylaxis will be ordered: Yes PG Care Time/CCT Total # of Minutes Spent Total Time Spent with Patient: Total time spent is greater than 50% in coordination of care (as documented) at patient's floor/unit and/or counseling patient: Coding Level of Care Code 69034 Initial Inpt Care Lvl 3 Diagnoses Venous stasis ulcers of both lower extremities I83.019; I83.029; L97.919; L97.929 Cellulitis of both lower extremities L03.115; L03.116 Thickening of wall of gallbladder K82.8 Heme positive stool R19.5 Hypotension I95.9 Acute renal failure N17.9 Paroxysmal atrial fibrillation I48.0 Peripheral neuropathy G62.9 Asthma J45.909 Hypertension I10 IDDM (insulin dependent diabetes mellitus) E11.9; Z79.4 Hyperlipidemia E78.5 CHF (congestive heart failure) I50.9 Sacral decubitus ulcer, stage II L89.152
[2019-12-20] MEDS ORDERED: MAGNESIUM HYDROXIDE SUSP 30 ML UDC PO PRN (23:47)
[2019-12-20] MEDS ORDERED: ONDANSETRON INJ 2 MG/ML 2 ML VIAL IV PRN (23:47)
[2019-12-20] MEDS ORDERED: ACETAMINOPHEN 325 MG TAB PO PRN (23:47)
[2019-12-20] MEDS ORDERED: GLUCOSE 10 TABS/TUBE PO PRN (23:47)
[2019-12-20] MEDS ORDERED: NITROGLYCERIN 0.6 MG/1 TAB 100 TAB BTL SL PRN (23:47)
[2019-12-20] MEDS ORDERED: GLUCAGON FOR INJ 1 MG VIAL SQ PRN (23:47)
[2019-12-20] MEDS ORDERED: ALUMINUM/MAGNESIUM SUSP 30 ML UDC PO PRN (23:47)
[2019-12-20] MEDS ORDERED: GLUCOSE 40% GEL 15 GM TUBE PO PRN (23:47)
[2019-12-20] MEDS ORDERED: DEXTROSE 50% 50 ML SYRINGE IV PRN (23:47)
[2019-12-20] MEDS ORDERED: CARBOHYDRATES FOR HYPOGLYCEMIA PO PRN (23:47)
[2019-12-21] MEDS: SODIUM CHLORIDE 0.9% 1000ML 1,000 ML IV SCH ×3 (01:37→17:24)
[2019-12-21] MEDS ORDERED: VANCOMYCIN CONSULT ACTIVE PRN (03:28)
[2019-12-21] MEDS ORDERED: PANTOprazole 40 MG in SYRINGE 0 ML IV ONE (04:00)
[2019-12-21] MEDS: metroNIDAZOLE 500 MG/100 ML BAG IV SCH ×3 (05:47→20:36)
[2019-12-21] MEDS: ALBUT/IPRATROP 3MG/0.5MG NEB 3 ML VIAL INH SCH ×4 (07:10→19:11)
[2019-12-21] MEDS ORDERED: cefTRIAXone SODIUM 2,000 MG in DEXTROSE 5% 50 ML IV SCH (08:00)
[2019-12-21 08:09] LABS: Est GFR (African American) 30.3; Est GFR (Non-African American) 26.1
[2019-12-21] MEDS ORDERED: VANCOMYCIN HCL 1,000 MG in SODIUM CHLORIDE 0.9% 250 ML IV SCH (09:00)
[2019-12-21] MEDS ORDERED: GABAPENTIN 300 MG CAP PO SCH (09:00)
[2019-12-21] MEDS ORDERED: ASPIRIN 81 MG ECTAB PO SCH (09:00)
[2019-12-21] MEDS ORDERED: ALBUT/IPRATROP 3MG/0.5MG NEB 3 ML VIAL INH SCH (09:00)
[2019-12-21] MEDS ORDERED: HEPARIN SOD 5,000 UNIT/0.5 ML VIAL SQ SCH (09:00)
--- NOTE | 2019-12-21 09:17 | Pharmacy Report ---
Pharmacy Abx Initial Consult - Date of Service December 21, 2019 - Pharmacy Dosing Scope Date of Consult: 12/21/19 Consultation requested by: Dr. Lorenzana Pharmacy is consulted to initiate vancomycin IV dosing therapy, order appropriate labs and adjust drug dose/frequency. - Subjective The patient is a 79 year old M admitted on 12/20/19 22:06. - Objective Height: 5 ft 11 in Weight: 99.4 kg Vital Signs (Past 12hrs): Vital Signs Temp Pulse Pulse Pulse Resp BP BP 12/21/19 07:20 36.3 C L 66 18 84/53 L 12/21/19 07:12 65 18 12/21/19 04:53 36.4 C L 66 18 106/69 12/20/19 23:45 36.4 C L 66 18 104/65 12/20/19 22:35 62 14 90/54 L 12/20/19 22:30 65 13 90/54 L 12/20/19 22:00 66 17 101/53 L 12/20/19 21:30 66 14 103/60 12/20/19 21:01 68 21 104/62 Pulse Ox 12/21/19 07:20 92 12/21/19 07:12 93 12/21/19 04:53 94 12/20/19 23:45 93 12/20/19 22:35 93 12/20/19 22:30 91 12/20/19 22:00 90 12/20/19 21:30 91 12/20/19 21:01 93 Lab Results (24hrs): Laboratory Tests (24 Hours) 12/21/19 12/21/19 12/20/19 06:17 06:13 17:11 WBC Neut # (Auto) ESR 32 H Creatinine 2.32 H D Est Cr Clr Drug Dosing 32.0 Total Creatine Kinase C-Reactive Protein Procalcitonin Random Vancomycin 16.4 12/20/19 12/20/19 12/20/19 17:11 17:11 17:11 WBC 7.06 Neut # (Auto) 4.87 ESR Creatinine 3.05 H Est Cr Clr Drug Dosing 24.6 Total Creatine Kinase 83 C-Reactive Protein 2.27 H Procalcitonin 0.11 Random Vancomycin Micro Results: 12/20/19 18:20 Aerobic Blood Culture - Pending Blood Anaerobic Blood Culture - Pending 12/20/19 18:20 Aerobic Blood Culture - Pending Blood Anaerobic Blood Culture - Pending - Assessment & Plan Assessment 79 year old M admitted for worsening confusion and b/l LE wounds, related to an accident with tractor equipment 4 days prior. PMH pertinent for T2DM and venous stasis ulcers of b/l LE. Patient also found to have thickening of gallbladder wall, seen on CT. US to be done this AM for f/u. SCr elevated on admission (baseline ~1.2) but has already improved this AM (3.05 -> 2.32). Patient initiated on vancomycin, cefepime and Flagyl for LE cellulitis and possible gallbladder infection. Patient was already given a vancomycin load in the ED (20 mg/kg). Random level this AM is 16.4 mcg/mL. Plan Vancomycin IV * Estimated PK Parameters with current est CrCl 32 mL/min: Vd 0.7 L/kg, Jose Roberto 0.031 hr-1, t1/2 22 hours * Est PK parameters with baseline CrCl ~65 mL/min: Jose Roberto 0.056 hr-1, t1/2 12.4 hours * With current random level in therapeutic range, patient will need re-dosed at this time. He has cleared the loading dose quickly with improvement in renal function. I expect renal function to continue to improve so will be more aggressive with vanc dosing in anticipation of this. * Maintenance dose: 1500 mg IV (15 mg/kg) every 18 hours * Goal trough level : ~15 mcg/mL * Will plan to order trough level with 3rd or 4th dose, but will re-evaluate tomorrow as I suspect regimen will need adjusted for renal function Cefepime * Increased to 2 gm q24h for CrCl 32 mL/min (as per renal dosing protocol) Flagyl * Not dosed by pharmacy - current dose is appropriate * If intra-abdominal infection ruled out, can likely d/c anaerobic coverage Pharmacy will continue to follow and will adjust dose/frequency as necessary. Thank you.
[2019-12-21 10:01] LABS: Estimated Average Glucose 160 mg/dl; Hemoglobin A1C 7.2 % (4.5-5.6)
[2019-12-21] MEDS: VANCOMYCIN HCL 1,500 MG in SODIUM CHLORIDE 0.9% 500 ML IV SCH (10:04)
[2019-12-21] MEDS: PANTOprazole 40 MG in SYRINGE 0 ML IV SCH (10:05)
--- NOTE | 2019-12-21 10:06 | Ultrasound Report ---
US abdomen limited CLINICAL HISTORY: 79 years-old Male presenting with Gallbladder wall thickening on CT. TECHNIQUE: Real-time grayscale and limited color Doppler ultrasound imaging of the abdomen limited to the right upper quadrant was performed. COMPARISON: CT from 12/20/2019. FINDINGS: Pancreas: Largely obscured due to overlying bowel gas. Liver: Nodular contour with hyperechogenic parenchyma and heterogeneous echotexture, suggestive of fi brosis/cirrhosis. The liver measures 17.0 cm in maximal sagittal dimension. No sonographic evidence o f hepatic mass. Main portal vein patent with normal directional flow. Biliary: No intrahepatic biliary ductal dilatation. Common bile duct measures up to 10 mm in diameter . Choledocholithiasis not excluded. Gallbladder: Gallstones and gallbladder sludge. Mild gallbladder wall thickening measuring 4 mm. No p athologic gallbladder distention or pericholecystic fluid or inflammatory change. Right kidney: Lower pole cyst noted. Hyperechogenic shadowing focus with twinkling artifact in the in terpolar to lower pole region consistent with nonobstructing calculus as seen on CT. No hydroureteron ephrosis. Ascites: None. Other: Right pleural effusion. IMPRESSION: 1. Findings equivocal for acute or chronic calculus cholecystitis. HIDA scan to be considered for fu rther evaluation. Alternatively, gallbladder wall thickening could be secondary to primary hepatic di sease. 2. Extra hepatic biliary ductal dilatation raises concern for choledocholithiasis in the setting of cholelithiasis. MRCP may be useful. 3. Findings suspicious for liver fibrosis/cirrhosis. The report will be called/faxed according to standard departmental protocol. ACT 112: Negative or not required by law. Electronically signed by: Alexis Diehl M.D. 12/21/2019 10:05 AM
[2019-12-21] MEDS: INSULIN ASPART 100 UNITS/ML 3 ML PEN SC SCH ×4 (10:47→21:01)
[2019-12-21] MEDS: INSULIN HUMAN 70% NPH/30% REGULAR SQ SCH ×2 (10:47→17:09)
[2019-12-21] MEDS ORDERED: SODIUM CHLORIDE 0.9% 1000ML 500 ML IV ONE (15:48)
--- NOTE | 2019-12-21 16:04 | Electrocardiogram Report ---
Test Reason : Blood Pressure : / mmHG Vent. Rate : 060 BPM Atrial Rate : 500 BPM P-R Int : 000 ms QRS Dur : 114 ms QT Int : 446 ms P-R-T Axes : 000 028 066 degrees QTc Int : 446 ms Poor data quality, interpretation may be adversely affected Sinus rhythm When compared with ECG of 21-APR-2019 15:40, no change Confirmed by Lyle Briseno ([id number]) on 12/21/2019 4:04:12 PM Referred By: REFERRED SELF Confirmed By:Jose Antonio Briseno
[2019-12-21] MEDS ORDERED: CEFEPIME 1,000 MG in SYRINGE 0 ML IV SCH (20:00)
[2019-12-21] MEDS: CEFEPIME 2,000 MG in SYRINGE 7.5 ML IV SCH (20:36)
--- NOTE | 2019-12-21 20:54 | Magnetic Resonance Report ---
MR MRCP HISTORY: 79 years-old Male abnormal RUQ u/s (?choledocholithiasis) acute confusion with right upper quadrant abdominal pain COMPARISON: Abdominal ultrasound of same day, CT abdomen and pelvis 12/20/2019 TECHNIQUE: MRCP was obtained without use of IV contrast utilizing institutional protocol. FINDINGS: Motion degraded exam. Cardiomegaly. Trace left and small right pleural effusions. Pleural calcificati ons of the right lung base redemonstrated along with right lung base consolidation. Mild generalized body wall edema. Prominent collateral vessels of the abdomen and subcutaneous tissues. Splenic calcifications. Moderate to marked generalized pancreatic atrophy. 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 Several of these foci appe ar to indicate with the main pancreatic duct. No pancreatic ductal dilation. Distended gallbladder wi th cholelithiasis. Cystic T2 hyperintense changes of the fundal gallbladder. The mid gallbladder wall is also mildly thickened at 4 mm. The common bile duct is mildly dilated at 10 mm. Mild intrahepatic biliary ductal dilation. There are numerous layering filling defects within the dependent common ede e duct, best seen on the axial images. There is narrowing of the distal common bile duct just proxima l to the ampulla without focal lesion identified. There is no dilated bowel loops. Trace perihepatic free fluid. Mild cortical thinning of the kidneys with bilateral perinephric stranding. Probable exop hytic cyst of the interpolar left kidney, 2.2 cm. T2 hyperintense focus of the inferior pole right ki dney measures 1.3 cm. IMPRESSION: 1. Cholelithiasis with gallbladder distention, mild wall thickening and fundal adenomyomatosis is not ed along with trace perihepatic free fluid. Findings are suspicious for acute cholecystitis in the ap propriate clinical setting. 2. Mild intrahepatic and extrahepatic biliary ductal dilation with numerous dependent filling defects within the common bile duct suggestive of choledocholithiasis. 3. 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 ACT 112: Negative or not required by law. The above report was generated using voice recognition software. It may contain grammatical, syntax o r spelling errors. Electronically signed by: Milo Linda M.D. 12/21/2019 8:52 PM
[2019-12-21] MEDS ORDERED: SIMVASTATIN 40 MG TAB PO SCH (21:00)
--- NOTE | 2019-12-21 21:27 | Hospitalist Progress Note ---
Date of Service December 21, 2019 Assessment & Plan (1) Acute cholecystitis: Multiple imaging studies are concerning for acute cholecystitis including MRCP which just resulted. Make strict NPO. Continue IV fluids. Cont cefepime & flagyl. Will consult general surgery and [facility] first thing in am. Will need ERCP for choledocholithiasis. (2) Choledocholithiasis: Suggested on RUQ u/s, and confirmed on MRCP. Will need ERCP. Will consult [facility]. Need to assume he has cholangitis - keep NPO, IV fluids, and broad-spectrum IV antibiotics. Repeat LFTs in am. I am surprised he has no LFT abnormalities as of this am. (3) Sepsis: 2nd to LLE cellulitis along with probable acute cholecystitis as well as ?cholangitis given the MRCP findings, low BP, acute renal failure, and sepsis picture. (4) Cellulitis of left lower extremity: mild-moderate. I spoke with his and a friend that helps him at his home. The friend feels that the ulceration on the LLE came from an incident outside at his home that involved a tractor and hauling some form of metal? strongly consider TDaP booster in addition to current IV abx. (5) Acute renal failure due to tubular necrosis: CYNDI improving with supportive care and IVF. ATN is sepsis-associated. BMP am. (6) Hypotension: off/on since admission. diuretics and home BP meds on home. hypotension c/w sepsis. supportive care and IVF. additional IV fluid bolus given today. IV antibiotics. (7) Sacral decubitus ulcer, stage II: per admitting MD wound. care consult also appreciate their input for LE ulceration on left (8) Paroxysmal atrial fibrillation: NSR since admission does not take anticoagulation per home med list cont telemetry (9) Asthma: not in exacerbation cont bronchodilators (10) Hypertension: holding all home anti-hypertensives due to low or low-normal BPS (11) Chronic venous insufficiency: resume diuretics later in stay hold for now (12) History of DVT (deep vein thrombosis): on CT imaging he has IVC filter in place would need to investigate records to determine details of this (13) Metabolic encephalopathy: likely sepsis-related supportive care does he have cognitive impairment at baseline? (14) IDDM (insulin dependent diabetes mellitus): per and friend/"son" he lost 100 pounds over the last year and no longer is taking ANY insulin at home pharmacy was consulted for glycemic management a1c is just over 7 c/w T2DM I'll let pharmacy know about insulin non-usage at home (15) Heme positive stool: per ER attending had trace heme+ stool in ER H/H remain stable however [id number] patient was placed on IV protonix GI has been consulted for CBD stones will ask them to address this as well (16) Severe protein-calorie malnutrition: 100 pound weight loss will check weights in record to substantiate this (17) DVT prophylaxis: has IVC filter holding chemical DVT proph pending probable ERCP, heme+ stool, etc updated by home when I called his a gentleman named Zenon Ledesma joined the call and lorrie ntified himself as the pt's caregiver he is not related to the [place] but apparently is very close to them and he is almost like a son to them I asked who held the POA and his stated that the two of them (she & Zenon) would be making decisions together Zenon mentioned patient had lost 100 pounds in the last year due to poor eating and asked us to look into this while here will involve SW in his care Admission and Anticipated Discharge Date Admission Date: December 20, 2019 Subjective upon arrival the patient was covered in multiple blankets stating he's cold. he c/o left leg pain. he immediately stated he had intentionally popped a large bled on his left burgess sometime a few days ago. he denied right leg pain. when asked if he had abdominal pain he said "maybe a little." he feels weak overall. denies dyspnea or chest pain. during the visit he made odd remarks that did not pertain to the issues at hand. Review of Systems Constitutional: + chills and + fatigue Respiratory: no cough and no dyspnea Cardiovascular: + edema; no chest pain Gastrointestinal: + abdominal pain; no nausea and no vomiting Musculoskeletal: no body aches Physical Exam Constitutional: + ill appearing, + altered mental status and + frail appearing; no acute distress ENMT: Mouth: + dry oral mucous membranes Respiratory: Auscultation: + diminished lung sounds; no crackles and no wheezes Cardiovascular: Rate/Rhythm: regular rate and regular rhythm Heart Sounds: normal S1 and normal S2; no murmur Vessels: posterior tibial pulses present and dorsalis pedis pulses present; no JVD Extremities: + edema (Left leg worse than right) Gastrointestinal (Abdomen): Inspection/Auscultation: normal bowel sounds; abdomen not distended Percussion/Palpation: + abdomen tender (Minimal RUQ ) and abdomen soft; no hepatosplenomegaly Skin: hyperpigmentation of both shins/venous stasis changes; optifoams in place b/l shins; left burgess - large ulceration/skin tear overlying the burgess with surrounding mild erythema and warmth c/w cellulitis; no cellulitis right burgess Psychiatric: Orientation: alert, oriented to person and oriented to place; + not oriented to time Results & Data Results & Data ([facility]) Vital Signs (Past 12 Hours) Vital Signs Temp Pulse Resp BP BP Pulse Ox 12/21/19 19:14 81 16 92 12/21/19 19:00 36.8 C 72 18 93/49 L 91 12/21/19 16:35 110/70 12/21/19 15:28 77 16 91 12/21/19 15:19 36.6 C 95 H 18 93/49 L 95 12/21/19 11:17 67 18 91 12/21/19 11:02 36.3 C L 73 19 105/71 93 Laboratory Results Laboratory Results - last 24 hr 12/20/19 12/21/19 12/21/19 23:56 06:13 06:13 Creatinine Est Cr Clr Drug Dosing Est GFR ( Amer) Est GFR (Non-Af Amer) POC Glucose 97 Estimat Average Glucose 160 Hemoglobin A1c 7.2 H Random Vancomycin 16.4 12/21/19 12/21/19 12/21/19 06:17 07:03 11:26 Creatinine 2.32 H D Est Cr Clr Drug Dosing 32.0 Est GFR ( Amer) 30.3 Est GFR (Non-Af Amer) 26.1 POC Glucose 96 93 Estimat Average Glucose Hemoglobin A1c Random Vancomycin 12/21/19 12/21/19 16:24 20:40 Creatinine Est Cr Clr Drug Dosing Est GFR ( Amer) Est GFR (Non-Af Amer) POC Glucose 110 H 97 Estimat Average Glucose Hemoglobin A1c Random Vancomycin PG Care Time/CCT Total # of Minutes Spent Total Time Spent with Patient: Total time spent is greater than 50% in coordination of care (as documented) at patient's floor/unit and/or counseling patient: Coding Level of Care Code 58354 Subseq Hosp Care Lv 3 Diagnoses Acute cholecystitis K81.0 Choledocholithiasis K80.50 Sepsis A41.9; R65.20; N17.0 Acute renal failure type: with acute tubular necrosis Sepsis acute organ dysfunction status: with acute organ dysfunction Sepsis type: sepsis due to unspecified organism Severe sepsis acute organ dysfunction type: acute renal failure Severe sepsis shock status: unspecified Cellulitis of left lower extremity L03.116 Acute renal failure due to tubular necrosis N17.0 Hypotension I95.9 Sacral decubitus ulcer, stage II L89.152 Paroxysmal atrial fibrillation I48.0 Asthma J45.909 Hypertension I10 Chronic venous insufficiency I87.2 History of DVT (deep vein thrombosis) Z86.718 Metabolic encephalopathy G93.41 IDDM (insulin dependent diabetes mellitus) E11.9; Z79.4 Heme positive stool R19.5 Severe protein-calorie malnutrition E43 DVT prophylaxis Z29.9 (1) Sepsis Acute renal failure type: with acute tubular necrosis Sepsis acute organ dysfunction status: with acute organ dysfunction Sepsis type: sepsis due to unspecified organism Severe sepsis acute organ dysfunction type: acute renal failure Severe sepsis shock status: unspecified Qualified Code(s): A41.9 - Sepsis, unspecified organism; R65.20 - Severe sepsis without septic shock; N17.0 - Acute kidney failure with tubular necrosis
--- NOTE | 2019-12-21 22:24 | Surgery Consultation ---
Date of Consultation December 21, 2019 Assessment & Plan (1) Choledocholithiasis: Appears the patient has multiple filling defects in his common bile duct consistent with choledocholithiasis He also has a thickened gallbladder with distention which appears to be somewhat worse than yesterday Consistent with acute and chronic cholecystitis He likely has an element of cholangitis and is now on IV antibiotics Is likely the patient will need an ERCP probably should proceed with laparoscopic cholecystectomy to avoid necrotizing cholecystitis It is interesting that his functions have been relatively normal History of Present Illness Attending Physician: Mariano Jacinto History of Present Illness 79-year-old male admitted through the emergency room with confusion and venous stasis ulcers Found on CT scan to have mildly dilated thickened gallbladder-his ultrasound shows thickened gallbladder with stones possible acute versus chronic inflammation. He underwent MRCP which does show dilated common bile duct with defects And also dilated gallbladder which is thickened He did appear to be get dehydrated on admission and does have bilateral pleural effusions Other history includes mild dementia, atrial fibrillation, neuropathy, hypertension Allergies Allergy/AdvReac Type Severity Reaction Status Date / Time Penicillins Allergy Unknown RASH Verified 08/07/19 13:44 Home Medications Home Medications Medication Instructions Recorded Confirmed Type aspirin 81 mg tablet,delayed 81 mg PO DAILY 07/20/18 12/20/19 History release diltiazem HCl 240 mg capsule,24 240 mg PO DAILY 07/20/18 12/20/19 History hr,extended release furosemide 40 mg tablet 80 mg PO BID tab 07/20/18 12/20/19 History gabapentin 300 mg capsule 300 mg PO TID 07/20/18 12/20/19 History labetalol 300 mg tablet 300 mg PO BID 07/20/18 12/20/19 History potassium chloride 10 mEq 10 meq PO DAILY 07/20/18 12/20/19 History tablet,extended release simvastatin 40 mg tablet 40 mg PO QPM 07/20/18 12/20/19 History spironolactone 25 mg tablet 25 mg PO DAILY 03/15/19 12/20/19 History acetaminophen [Tylenol Extra 1,500 mg PO Q6H PRN 04/21/19 12/20/19 History Strength] Novolin 70/30 U-100 Insulin 25 units SQ BID #0 ml 04/23/19 12/20/19 Rx albuterol sulfate 90 mcg/actuation 2 puffs INHALATION Q4H PRN #1 gm 05/08/19 12/20/19 History aerosol inhaler metoprolol tartrate 100 mg tablet 100 mg PO BID tab 05/08/19 12/20/19 History nitroglycerin 0.6 mg sublingual 0.6 mg SL PRN PRN tab 05/08/19 12/20/19 History tablet ipratropium-albuterol 3 ml INHALATION QID 12/20/19 12/20/19 History metolazone 2.5 mg PO Q2D 12/20/19 12/20/19 History Patient History Medical History Arthritis (Chronic) Cardiac dysrhythmia (Acute) CHF (congestive heart failure) (Resolved) Chronic venous insufficiency (Chronic) COPD (chronic obstructive pulmonary disease) (Chronic) Deep vein thrombosis (Acute) Diabetes (Chronic) Edema (Acute) H/O: pneumothorax (Chronic) Hyperlipidemia (Chronic) Hypertension (Chronic) Hypertension associated with diabetes (Chronic 09/19/13) Hypomagnesemia (Acute) Hypoxia (Acute) IDDM (insulin dependent diabetes mellitus) (Chronic 09/19/13) New onset atrial fibrillation (Acute) Obesity (Chronic 09/19/13) Other specified cardiac arrhythmias (Chronic) Paroxysmal atrial fibrillation Pleural effusion, left (Acute) SOB (shortness of breath) (Acute) 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) Stenosis, spinal, lumbar (Chronic 09/19/13) Venous stasis ulcers of both lower extremities (Acute) Surgical History H/O carpal tunnel repair (Resolved) History of back surgery (Resolved) History of shoulder surgery (Resolved) Previous back surgery (Resolved) Family History Other Diabetes Heart disease Hypertension Social History Preferred Language: Ivorian Communication Ability: Effective Visual Impairment: No Limitations Hearing Ability: Normal Nurse Transitional Required: No Beliefs That Will Affect Care: None marital status: Current Living Situation: Spouse current occupational status: retired Feels Safe at Home: Yes Smoking Status: Former smoker Hx Alcohol Use: No Hx Substance Use: No Review of Systems Review of Systems: All systems reviewed & are unremarkable except as noted in HPI & below Physical Exam Physical Exam: Patient is currently in his bed awake and alert very responsive there may be some mild effusion He does not have any abdominal pain His abdomen is flat and soft with no tenderness Constitutional: well nourished; no acute distress Respiratory: no respiratory distress Cardiovascular: Rate/Rhythm: + irregularly irregular Skin: no rashes, warm and dry Neurologic: awake Psychiatric: Orientation: cooperative Results & Data Vital Signs (Past 12 Hours) Vital Signs Temp Pulse Resp BP BP Pulse Ox 12/21/19 19:14 81 16 92 12/21/19 19:00 36.8 C 72 18 93/49 L 91 12/21/19 16:35 110/70 12/21/19 15:28 77 16 91 12/21/19 15:19 36.6 C 95 H 18 93/49 L 95 12/21/19 11:17 67 18 91 12/21/19 11:02 36.3 C L 73 19 105/71 93 I did review his imaging studies PG Care Time/CCT Total # of Minutes Spent Total Time Spent with Patient: Total time spent is greater than 50% in coordination of care (as documented) at patient's floor/unit and/or counseling patient: Coding Level of Care Code 94514 Initial Inpt Care Lvl 3 Diagnoses Choledocholithiasis K80.50
[2019-12-22] MEDS: VANCOMYCIN HCL 1,500 MG in SODIUM CHLORIDE 0.9% 500 ML IV SCH ×2 (03:18→20:09)
[2019-12-22] MEDS: SODIUM CHLORIDE 0.9% 1000ML 1,000 ML IV SCH ×2 (04:28→14:53)
[2019-12-22] MEDS: metroNIDAZOLE 500 MG/100 ML BAG IV SCH ×3 (04:28→20:08)
[2019-12-22 06:41] LABS: Calcium 8.6 mg/dl (8.5-10.1); Est GFR (African American) 45.4; Est GFR (Non-African American) 39.2
[2019-12-22 06:44] LABS: Albumin Globulin Ratio 0.8 (0.9-2); Bilirubin,Total 0.6 mg/dl (0.2-1); Globulin 3.6 gm/dl (2.5-4.0); Total Protein 6.6 gm/dl (6.4-8.2)
[2019-12-22 06:54] LABS: Potassium 3.9 mmol/L (3.5-5.1)
[2019-12-22] MEDS: ALBUT/IPRATROP 3MG/0.5MG NEB 3 ML VIAL INH SCH ×4 (06:56→19:02)
[2019-12-22] MEDS: INSULIN ASPART 100 UNITS/ML 3 ML PEN SC SCH ×4 (08:04→20:33)
[2019-12-22] MEDS: INSULIN HUMAN 70% NPH/30% REGULAR SQ SCH (08:08)
--- NOTE | 2019-12-22 08:38 | Gastrointestinal Consultation ---
Date of Consultation December 22, 2019 Assessment & Plan (1) Choledocholithiasis: 79 year old male w/ history of hypertension, hyperlipidemia, A. fib on Coumadin who presents emergency department for evaluation of worsening confusion, report of black stools over the past week and worsening bilateral lower extremity wounds in the setting of having a an accident with tractor equipment 4 days ago admitted with sepsis, cholecystitis concern for cholangitis as MRCP shows CBD stones - NPO - INR 1 this AM - Continue Hold coumadin - ERCP today appears at time of CCY - [facility] general surgery consultation - Dark stools and report of decreased PO associated with a weight loss - OP EGD - OP Colonoscopy - CTAP w/ contrast Thank you for allowing us to participate in the care of this patient. Please call with any acute changes, questions or concerns. Please see addendum below with additional recommendation from my supervising physician. Present on Admission?: Yes (2) Acute cholecystitis: Present on Admission?: Yes (3) Sepsis: Present on Admission?: Yes Supervising Physician Co-Signing Physician Notes I saw and evaluated the patient. The patient presented with abdominal discomfort and was found to have evidence of choledocholithiasis imaging study last evening. Physical examination Mild distress Right upper quadrant tenderness noted Impression: Patient with symptomatic choledocholithiasis for ERCP and cholecystectomy today. We have discussed the risks and benefits of the procedure to include bleeding, infection, perforation, pancreatitis and need for follow-up studies History of Present Illness Reason for Consultation: abnormal MRCP Requesting Physician: Orville Attending Physician: Mariano Jacinto History of Present Illness 79 year old male hypertension, hyperlipidemia, A. fib on Coumadin who presents emergency department for evaluation of worsening confusion, report of black stools over the past week and worsening bilateral lower extremity wounds in the setting of having a an accident with tractor equipment 4 days ago - GI asked to evaluate as work up concerning for cholecystitis, CBD stone- possible cholangitis. Pt was seen and evaluated, Chart reviewed. He is a poor historian. He denies abd pain. No nausea, vomiting. No black or bloody stools. Per HPI he had previously reported a 100 lb weight loss, dark-tarry stools and decreased appetite. His only concern this AM is left lower leg discomfort. MRCP: Cholelithiasis with gallbladder distention, mild wall thickening and fundal adenomyomatosis is noted along with trace perihepatic free fluid. Findings are suspicious for acute cholecystitis in the appropriate clinical setting. Mild intrahepatic and extrahepatic biliary ductal dilation with numerous dependent filling defects within the common bile duct suggestive of choledocholithiasis. Allergies Allergy/AdvReac Type Severity Reaction Status Date / Time Penicillins Allergy Unknown RASH Verified 08/07/19 13:44 Home Medications Home Medications Medication Instructions Recorded Confirmed Type aspirin 81 mg tablet,delayed 81 mg PO DAILY 07/20/18 12/20/19 History release diltiazem HCl 240 mg capsule,24 240 mg PO DAILY 07/20/18 12/20/19 History hr,extended release furosemide 40 mg tablet 80 mg PO BID tab 07/20/18 12/20/19 History gabapentin 300 mg capsule 300 mg PO TID 07/20/18 12/20/19 History labetalol 300 mg tablet 300 mg PO BID 07/20/18 12/20/19 History potassium chloride 10 mEq 10 meq PO DAILY 07/20/18 12/20/19 History tablet,extended release simvastatin 40 mg tablet 40 mg PO QPM 07/20/18 12/20/19 History spironolactone 25 mg tablet 25 mg PO DAILY 03/15/19 12/20/19 History acetaminophen [Tylenol Extra 1,500 mg PO Q6H PRN 04/21/19 12/20/19 History Strength] Novolin 70/30 U-100 Insulin 25 units SQ BID #0 ml 04/23/19 12/20/19 Rx albuterol sulfate 90 mcg/actuation 2 puffs INHALATION Q4H PRN #1 gm 05/08/19 12/20/19 History aerosol inhaler metoprolol tartrate 100 mg tablet 100 mg PO BID tab 05/08/19 12/20/19 History nitroglycerin 0.6 mg sublingual 0.6 mg SL PRN PRN tab 05/08/19 12/20/19 History tablet ipratropium-albuterol 3 ml INHALATION QID 12/20/19 12/20/19 History metolazone 2.5 mg PO Q2D 12/20/19 12/20/19 History Patient History Medical History Arthritis (Chronic) Cardiac dysrhythmia (Acute) CHF (congestive heart failure) (Resolved) Chronic venous insufficiency (Chronic) COPD (chronic obstructive pulmonary disease) (Chronic) Deep vein thrombosis (Acute) Diabetes (Chronic) Edema (Acute) H/O: pneumothorax (Chronic) Hyperlipidemia (Chronic) Hypertension (Chronic) Hypertension associated with diabetes (Chronic 09/19/13) Hypomagnesemia (Acute) Hypoxia (Acute) IDDM (insulin dependent diabetes mellitus) (Chronic 09/19/13) New onset atrial fibrillation (Acute) Obesity (Chronic 09/19/13) Other specified cardiac arrhythmias (Chronic) Paroxysmal atrial fibrillation Pleural effusion, left (Acute) SOB (shortness of breath) (Acute) 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) Stenosis, spinal, lumbar (Chronic 09/19/13) Venous stasis ulcers of both lower extremities (Acute) Surgical History H/O carpal tunnel repair (Resolved) History of back surgery (Resolved) History of shoulder surgery (Resolved) Previous back surgery (Resolved) Family History Other Diabetes Heart disease Hypertension Social History Preferred Language: Mohawk Communication Ability: Effective Visual Impairment: No Limitations Hearing Ability: Normal Eyeglass Frame Truer Required: No Beliefs That Will Affect Care: None marital status: Current Living Situation: Spouse current occupational status: retired Feels Safe at Home: Yes Smoking Status: Former smoker Hx Alcohol Use: No Hx Substance Use: No Review of Systems Constitutional: no fever and no fatigue Respiratory: no cough and no dyspnea Cardiovascular: no chest pain Gastrointestinal: + melena (dark stools reported in HPI but he denies); no abdominal pain and no blood in stools Physical Exam Constitutional: + thin; no acute distress Neck: trachea midline Respiratory: normal respiratory effort Gastrointestinal (Abdomen): Percussion/Palpation: abdomen soft; abdomen nontender, no guarding and abdomen not rigid Skin: no rashes, warm and dry Results & Data ([facility]) Vital Signs (Past 12 Hours) Vital Signs Temp Pulse Pulse Resp BP BP Pulse Ox 12/22/19 07:50 36.6 C 76 18 115/68 93 12/22/19 06:57 87 16 92 12/22/19 04:11 74 113/71 12/22/19 03:56 36.4 C L 74 16 89/45 L 94 12/21/19 23:53 36.5 C 77 16 105/61 94 Laboratory Results 12/22/19 12/22/19 12/21/19 Range/Units 07:38 05:44 20:40 Sodium 142 D (136-145) mmol/L Potassium 3.9 D (3.5-5.1) mmol/L Chloride 108 H (98-107) mmol/L Carbon Dioxide 27 (21-32) mmol/L Anion Gap 7.0 (3-11) BUN 51 H (7-18) mg/dl Creatinine 1.66 H D (0.6-1.4) mg/dl Est Cr Clr Drug Dosing 45.0 ml/min Est GFR ( Amer) 45.4 Est GFR (Non-Af Amer) 39.2 BUN/Creatinine Ratio 31.0 H (10-20) Glucose 103 H (70-99) mg/dl POC Glucose 92 97 (70-99) mg/dl Estimat Average Glucose mg/dl Hemoglobin A1c (4.5-5.6) % Calcium 8.6 (8.5-10.1) mg/dl Total Bilirubin 0.6 (0.2-1) mg/dl AST 12 L (15-37) U/L ALT 16 (12-78) U/L Alkaline Phosphatase 100 (45-117) U/L Total Protein 6.6 (6.4-8.2) gm/dl Albumin 3.0 L (3.4-5.0) gm/dl Globulin 3.6 (2.5-4.0) gm/dl Albumin/Globulin Ratio 0.8 L (0.9-2) 12/21/19 12/21/19 12/21/19 Range/Units 16:24 11:26 06:13 Sodium (136-145) mmol/L Potassium (3.5-5.1) mmol/L Chloride (98-107) mmol/L Carbon Dioxide (21-32) mmol/L Anion Gap (3-11) BUN (7-18) mg/dl Creatinine (0.6-1.4) mg/dl Est Cr Clr Drug Dosing ml/min Est GFR ( Amer) Est GFR (Non-Af Amer) BUN/Creatinine Ratio (10-20) Glucose (70-99) mg/dl POC Glucose 110 H 93 (70-99) mg/dl Estimat Average Glucose 160 mg/dl Hemoglobin A1c 7.2 H (4.5-5.6) % Calcium (8.5-10.1) mg/dl Total Bilirubin (0.2-1) mg/dl AST (15-37) U/L ALT (12-78) U/L Alkaline Phosphatase (45-117) U/L Total Protein (6.4-8.2) gm/dl Albumin (3.4-5.0) gm/dl Globulin (2.5-4.0) gm/dl Albumin/Globulin Ratio (0.9-2) (1) Sepsis Acute renal failure type: with acute tubular necrosis Sepsis acute organ dysfunction status: with acute organ dysfunction Sepsis type: sepsis due to unspecified organism Severe sepsis acute organ dysfunction type: acute renal failure Severe sepsis shock status: unspecified Qualified Code(s): A41.9 - Sepsis, unspecified organism; R65.20 - Severe sepsis without septic shock; N17.0 - Acute kidney failure with tubular necrosis
--- NOTE | 2019-12-22 09:22 | History & Physical Bridge Note ---
Date of Service December 22, 2019 History & Physical Bridge Note I have examined the patient, reviewed the History & Physical and in the interval since the performance of the History & Physical I have noted the following changes of clinical significance: no changes noted
[2019-12-22] MEDS ORDERED: fentaNYL citrate 100 MCG/2 ML VIAL ONE ×2 (09:58→12:07)
[2019-12-22] MEDS ORDERED: SUCCINYLCHOLINE CHLORIDE 20 MG/ML 10 ML VIAL ONE ×2 (10:00→10:19)
--- NOTE | 2019-12-22 10:04 | Anesthesiology Consultation ---
Date of Service December 22, 2019 Assessment & Plan ASA ASA3 Proposed Anesthesia Anesthesia Type: General Risk / Benefits Reviewed With: PT / POA / Parent / Guardian, Accepts Plan and Informed Consent Obtained History Surgery Operation Date: 12/22/19 13:50 Proposed Procedures p Laparoscopic Cholecystectomy - Van Perez MD, FACS s Endoscopic Retrograde Cholangiopancreatogram - Regina Lenny Height/Weight Height: 5 ft 11 in Weight: 100.4 kg Allergies Allergy/AdvReac Type Severity Reaction Status Date / Time Penicillins Allergy Unknown RASH Verified 08/07/19 13:44 Medications Home Medications Medication Instructions Recorded Confirmed Last Taken aspirin 81 mg tablet,delayed 81 mg PO DAILY 07/20/18 12/20/19 04/21/19 release diltiazem HCl 240 mg capsule,24 240 mg PO DAILY 07/20/18 12/20/19 Unknown hr,extended release furosemide 40 mg tablet 80 mg PO BID tab 07/20/18 12/20/19 04/21/19 gabapentin 300 mg capsule 300 mg PO TID 07/20/18 12/20/19 04/21/19 labetalol 300 mg tablet 300 mg PO BID 07/20/18 12/20/19 Unknown potassium chloride 10 mEq 10 meq PO DAILY 07/20/18 12/20/19 04/21/19 tablet,extended release simvastatin 40 mg tablet 40 mg PO QPM 07/20/18 12/20/19 04/20/19 spironolactone 25 mg tablet 25 mg PO DAILY 03/15/19 12/20/19 04/21/19 acetaminophen [Tylenol Extra 1,500 mg PO Q6H PRN 04/21/19 12/20/19 04/21/19 Strength] Novolin 70/30 U-100 Insulin 25 units SQ BID #0 ml 04/23/19 12/20/19 04/21/19 albuterol sulfate 90 mcg/actuation 2 puffs INHALATION Q4H PRN #1 gm 05/08/19 12/20/19 Unknown aerosol inhaler metoprolol tartrate 100 mg tablet 100 mg PO BID tab 05/08/19 12/20/19 Unknown nitroglycerin 0.6 mg sublingual 0.6 mg SL PRN PRN tab 05/08/19 12/20/19 Unknown tablet ipratropium-albuterol 3 ml INHALATION QID 12/20/19 12/20/19 Unknown metolazone 2.5 mg PO Q2D 12/20/19 12/20/19 Unknown Active Medications Generic Name Dose Route Start Last Admin Trade Name Marcelina PRN Reason Stop Dose Admin Albuterol 3 ml 12/21/19 07:00 12/22/19 06:56 Duoneb INH 01/20/20 06:59 3 ml QIDR IRVIN Administration Sodium Chloride 1,000 mls @ 100 mls/hr 12/20/19 23:47 12/22/19 04:28 Nss 1000ml IV 01/19/20 23:46 100 mls/hr .Q10H IRVIN Administration Pantoprazole Sodium 40 mg/ 10 mls @ 5 mls/min 12/21/19 11:00 12/21/19 10:05 Syringe IV 01/20/20 10:59 5 mls/min DAILY@1100 IRVIN Administration Vancomycin HCl 1,500 mg/ 530 mls @ 200 mls/hr 12/21/19 09:00 12/22/19 06:02 Sodium Chloride IV 12/28/19 08:59 Infused Q18H IRVIN Infusion Protocol Metronidazole 500 mg in 100 mls @ 100 mls/hr 12/21/19 04:00 12/22/19 06:01 Flagyl IV 12/28/19 03:59 Infused Q8H IRVIN Infusion Cefepime HCl 2,000 mg/ Syringe 20 mls @ 5 mls/min 12/21/19 20:00 12/21/19 20:36 IV 12/27/19 19:59 5 mls/min Q24H IRVIN Administration Protocol Insulin Aspart 0 units 12/21/19 07:30 12/22/19 08:04 Novolog Flexpen SC 01/20/20 07:29 Not Given ACHS IRVIN NPO Date Last Intake of Fluids: 12/21/19 Time Last Intake of Fluids: 17:00 Last Intake of Fluids Comment: clear liquids Last Intake of Solids Comment: clear liquids for last meal;no information provided for prior to this time Past Medical History Medical History Arthritis (Chronic) Cardiac dysrhythmia (Acute) CHF (congestive heart failure) (Resolved) Chronic venous insufficiency (Chronic) COPD (chronic obstructive pulmonary disease) (Chronic) Deep vein thrombosis (Acute) Diabetes (Chronic) Edema (Acute) H/O: pneumothorax (Chronic) Hyperlipidemia (Chronic) Hypertension (Chronic) Hypertension associated with diabetes (Chronic 09/19/13) Hypomagnesemia (Acute) Hypoxia (Acute) IDDM (insulin dependent diabetes mellitus) (Chronic 09/19/13) New onset atrial fibrillation (Acute) Obesity (Chronic 09/19/13) Other specified cardiac arrhythmias (Chronic) Paroxysmal atrial fibrillation Pleural effusion, left (Acute) SOB (shortness of breath) (Acute) 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) Stenosis, spinal, lumbar (Chronic 09/19/13) Venous stasis ulcers of both lower extremities (Acute) Exercise / Class Metabolic Activity II 4-5 Yardwork/Stairs/Walk up hill Past Family History Family History Other Diabetes Heart disease Hypertension Past Surgical History Surgical History H/O carpal tunnel repair (Resolved) History of back surgery (Resolved) History of shoulder surgery (Resolved) Previous back surgery (Resolved) Past Anesthesia History No Hx of Anesthesia Complications and No Family Hx of Anesthesia Complications History of PONV No Hx of PONV and No Hx of Motion Sickness Social History Smoking Status: Former smoker Hx Alcohol Use: No Hx Substance Use: No substance use type: does not use Review of Systems denies fever/cough/ colds/ chest pain/ SOB/ HANNA Constitutional: no fever and no chills Respiratory: no cough and no dyspnea denies HANNA Cardiovascular: no chest pain and no dyspnea on exertion Physical Exam Vital Signs Last Vital Signs Temp 37.1 C 12/22/19 09:55 Pulse 78 12/22/19 09:55 Resp 16 12/22/19 09:55 BP 121/74 12/22/19 09:55 Pulse Ox 94 12/22/19 09:55 ENMT Mouth: no TMJ abnormality and no dentition abnormality Thyromental Distance: > or= 3.5 Finger Breadths Mallampati Class: II Neck neck extension not limited Respiratory normal respiratory effort; no respiratory distress Auscultation: lungs clear to auscultation bilaterally Cardiovascular Rate/Rhythm: regular rate and regular rhythm Neurologic moves all extremities Psychiatric Orientation: alert and oriented x 3 Testing Laboratory Results 12/20/19 17:11 12/22/19 05:44 PT 10.6 Seconds (9.0-12.0) 12/20/19 17:11 INR 1.0 (0.9-1.1) 12/20/19 17:11 APTT 24.4 Seconds (21.0-31.0) 12/20/19 17:11 Hemoglobin A1c 7.2 % (4.5-5.6) H 12/21/19 06:13 Urine Color Yellow 12/20/19 19:47 Urine Appearance Clear (Clear) 12/20/19 19:47 Urine pH 5.0 (4.5-7.5) 12/20/19 19:47 Ur Specific [place] 1.014 (1.000-1.030) 12/20/19 19:47 Urine Protein Negative (Negative) 12/20/19 19:47 Urine Glucose (UA) Negative (Negative) 12/20/19 19:47 Urine Ketones Negative (Negative) 12/20/19 19:47 Urine Nitrite Negative (Negative) 12/20/19 19:47 Ur Leukocyte Esterase Trace (Negative) H 12/20/19 19:47 Urine WBC (Auto) 1-5 /hpf (0-5) 12/20/19 19:47 Urine RBC (Auto) 0-4 /hpf (0-4) 12/20/19 19:47 U Hyaline Cast (Auto) 10-30 /lpf (0-5) H 12/20/19 19:47 U Epithel Cells (Auto) 5-10 /lpf (0-5) H 12/20/19 19:47 Urine Bacteria (Auto) Negative (Negative) 12/20/19 19:47 Blood Type A Positive 12/20/19 18:20 Antibody Screen NEGATIVE 12/20/19 18:20 12/20/19 18:20 Aerobic Blood Culture - Preliminary Blood No growth in Aerobic bottle after 24 hours. Anaerobic Blood Culture - Final 12/20/19 18:20 Aerobic Blood Culture - Preliminary Blood No growth in Aerobic bottle after 24 hours. Anaerobic Blood Culture - Preliminary No growth in Anaerobic bottle after 24 hours. 12/22/19 07:38 POC Glucose 92
[2019-12-22] MEDS ORDERED: PROPOFOL IV EMULSION 10 MG/ML 20 ML VIAL IV ONE ×2 (10:19→10:51)
[2019-12-22] MEDS ORDERED: ONDANSETRON INJ 2 MG/ML 2 ML VIAL ONE (10:19)
[2019-12-22] MEDS ORDERED: LIDOCAINE HCL 2% 2 ML VIAL/AMP(20MG/ML) INFIL ONE (10:19)
[2019-12-22] MEDS ORDERED: ROCURONIUM BROMIDE 10 MG/ML 5 ML VIAL ONE (10:19)
[2019-12-22] MEDS ORDERED: DEXAMETHASONE SOD INJ 4 MG/ML VIAL ONE (10:19)
[2019-12-22] MEDS ORDERED: INDOMETHACIN 50 MG SUPP PR ONE (10:20)
[2019-12-22] MEDS ORDERED: BUPIVACAINE 0.5 % 5 MG/1 ML MPF 30ML VIAL ONE (10:20)
[2019-12-22] MEDS ORDERED: fentaNYL citrate 100 MCG/2 ML VIAL IV PRN (10:23)
[2019-12-22] MEDS ORDERED: ONDANSETRON INJ 2 MG/ML 2 ML VIAL IV PRN ×2 (10:23→12:55)
[2019-12-22] MEDS ORDERED: HYDROmorphone INJ 2 MG/ML SYR/VIAL IV PRN (10:23)
[2019-12-22] MEDS ORDERED: ATROPINE SULFATE 0.1 MG/ML 10ML SYR IV PRN (10:23)
[2019-12-22] MEDS ORDERED: ePHEDrine sulfate 50 MG/ML AMP IV PRN (10:23)
--- NOTE | 2019-12-22 10:58 | GI REPORT ---
Patient Name: Mario Munoz Procedure Date: 12/22/2019 10:28 AM Date of : 1940 Admit Type: Inpatient Age: 79 Gender: Male Attending MD: Regina Galvez DO Procedure: Upper GI endoscopy Providers: Regina Galvez DO Referring MD: Mariano Jacinto, Van Perez, Giorgio Stanley Indications: Epigastric abdominal pain, Melena Medicines: General Anesthesia Complications: No immediate complications. Estimated blood loss: Minimal. Estimated Blood Loss: Estimated blood loss was minimal. Procedure: Pre-Anesthesia Assessment: - Prior to the procedure, a History and Physical was performed, and patient medications, allergies and sensitivities were reviewed. The patient's tolerance of previous anesthesia was reviewed. - The risks and benefits of the procedure and the sedation options and risks were discussed with the patient. All questions were answered and informed consent was obtained. - Patient identification and proposed procedure were verified prior to the procedure by the physician, the nurse and the brass polisher. The procedure was verified in the procedure room. - Pre-procedure physical examination revealed no contraindications to sedation. - ASA Grade Assessment: III - A patient with severe systemic disease. - After reviewing the risks and benefits, the patient was deemed in satisfactory condition to undergo the procedure. - The anesthesia plan was to use general anesthesia. - Immediately prior to administration of medications, the patient was re-assessed for adequacy to receive sedatives. - The heart rate, respiratory rate, oxygen saturations, blood pressure, adequacy of pulmonary ventilation, and response to care were monitored throughout the procedure. - The physical status of the patient was re-assessed after the procedure. After obtaining informed consent, the endoscope was passed under direct vision. Throughout the procedure, the patient's blood pressure, pulse, and oxygen saturations were monitored continuously. The Endoscope was introduced through the mouth, and advanced to the third part of duodenum. The upper GI endoscopy was accomplished without difficulty. The patient tolerated the procedure well. Findings: The examined esophagus was normal. The Z-line was regular and was found 41 cm from the incisors. Diffuse mild inflammation characterized by congestion (edema), erosions and granularity was found in the entire examined stomach. Biopsies were taken with a cold forceps for histology. The pathology specimen was placed into Bottle A. Estimated blood loss was minimal. The examined duodenum was normal. Impression: - Normal esophagus. - Z-line regular, 41 cm from the incisors. - Gastritis. Biopsied. - Normal examined duodenum. Recommendation: - Perform an ERCP today. - Await pathology results. Regina Galvez D.O. Regina Galvez, 12/22/2019 10:58:07 AM This report has been signed electronically. Note Initiated On: 12/22/2019 10:28 AM Number of Addenda: 0 I attest to the content of the Intraoperative Record and orders documented therein, exceptions below {[id number]}
[2019-12-22] MEDS ORDERED: PHENYLEPHRINE 100MCG/ML 5ML SYR ONE (11:39)
[2019-12-22] MEDS ORDERED: ePHEDrine sulfate 50 MG/ML AMP ONE (11:39)
--- NOTE | 2019-12-22 11:44 | GI REPORT ---
Patient Name: Mario Munoz Procedure Date: 12/22/2019 9:52 AM Date of : 1940 Admit Type: Inpatient Age: 79 Gender: Male Attending MD: Regina Galvez DO Procedure: ERCP Providers: Regina Galvez DO Referring MD: Van Porter Indications: Abdominal pain of suspected biliary origin, Abnormal MRCP Medicines: General Anesthesia Complications: No immediate complications. Estimated blood loss: Minimal. Estimated Blood Loss: Estimated blood loss was minimal. Procedure: Pre-Anesthesia Assessment: - Prior to the procedure, a History and Physical was performed, and patient medications, allergies and sensitivities were reviewed. The patient's tolerance of previous anesthesia was reviewed. - The risks and benefits of the procedure and the sedation options and risks were discussed with the patient. All questions were answered and informed consent was obtained. - Patient identification and proposed procedure were verified prior to the procedure by the physician, the nurse and the desktop manager. The procedure was verified in the procedure room. - Pre-procedure physical examination revealed no contraindications to sedation. - ASA Grade Assessment: III - A patient with severe systemic disease. - After reviewing the risks and benefits, the patient was deemed in satisfactory condition to undergo the procedure. - The anesthesia plan was to use general anesthesia. - Immediately prior to administration of medications, the patient was re-assessed for adequacy to receive sedatives. - The heart rate, respiratory rate, oxygen saturations, blood pressure, adequacy of pulmonary ventilation, and response to care were monitored throughout the procedure. - The physical status of the patient was re-assessed after the procedure. After obtaining informed consent, the scope was passed under direct vision. Throughout the procedure, the patient's blood pressure, pulse, and oxygen saturations were monitored continuously. The Scope was introduced through the mouth, and advanced to the duodenum and used to inject contrast into the bile duct. The ERCP was accomplished without difficulty. The patient tolerated the procedure well. Findings: The stuffed casing tier film was normal. The esophagus was successfully intubated under direct vision without detailed examination of the pharynx, larynx, and associated structures, and upper GI tract. The upper GI tract was grossly normal. The major papilla was enlarged and appered to have an impacted stone within the intaduodenal segment. The ventral pancreatic duct was inadvertently cannulated with the short-nosed traction sphincterotome and guidewire without any complications, the wire was left in place to aid in biliary cannulation and later place a pancreatic stent. The bile duct was deeply cannulated with the short-nosed traction sphincterotome and guidewire. Contrast was injected. I personally interpreted the bile duct images. Contrast extended to the entire biliary tree. The main bile duct was moderately dilated and diffusely dilated. The largest diameter was 12 mm. The lower third of the main bile duct and middle third of the main bile duct contained filling defect(s) thought to be a stone and sludge. Biliary sphincterotomy was made with a monofilament Fusion OMNI sphincterotome using ERBE electrocautery. There was no post-sphincterotomy bleeding. To discover objects, the biliary tree was swept with a 15 mm balloon starting at the bifurcation. Sludge was swept from the duct. A few large green stones were removed. No stones remained. Pus was swept from the duct consistent with cholangitis. One 10 Fr by 8 cm biliary stent with a single external flap and a single internal flap was placed 8 cm into the common bile duct. Bile flowed through the stent. The stent was in good position. One 5 Fr by 7 cm pancreatic stent with a full external pigtail and no internal flaps was placed 7 cm into the ventral pancreatic duct. Clear fluid flowed through the stent. The stent was in good position. The endoscope was withdrawn from the patient. The total fluoroscopy exposure time was 1 minute and 28 seconds. Indomethacin 100 mg was given via suppository to decrease the risk of post-ERCP pancreatitis (PEP). Impression: - The major papilla appeared to be enlarged. - A filling defect consistent with a stone and sludge was seen on the cholangiogram. - The entire main bile duct was moderately dilated. - Choledocholithiasis was found. Complete removal was accomplished by biliary sphincterotomy and balloon extraction. - The biliary tree was swept and pus was found. - One biliary stent was placed into the common bile duct. - One pancreatic stent was placed into the ventral pancreatic duct. - Indomethacin given to decrease risk of post-ERCP pancreatitis. Recommendation: - Avoid aspirin and nonsteroidal anti-inflammatory medicines for 1 week. - Use broad spectrum antibiotics for 2 weeks. - Repeat ERCP in 6 weeks to remove stent. Regina Galvez D.O. Regina Galvez, 12/22/2019 11:43:51 AM This report has been signed electronically. Note Initiated On: 12/22/2019 9:52 AM Number of Addenda: 0 I attest to the content of the Intraoperative Record and orders documented therein, exceptions below {[id number]}
--- NOTE | 2019-12-22 11:45 | Post Operative Brief Note ---
Immediate Post Op Note v1 Date of Surgery December 22, 2019 Pre & Post Diagnosis Operation Date: 12/22/19 13:50 Pre-Op Diagnosis: Choledocholithiasis, Acute cholecystitis, Sepsis Post-Op Diagnosis: Choledocholithiasis, cholangitis, gastritis I identified the patient and participated in the time-out.: Yes Procedure Operation Date: 12/22/19 13:50 Actual Procedures p Esophagogastroduodenoscopy, Endoscopic Retrograde Cholangiopancreatogram, Biliary and Pancreatic Stent Placement(Not Applicable) - Regina Galvez Surgeon Regina Galvez Supervisor Sterile Processing none Estimated Blood Loss 0 Findings Consistent with Post-Op Diagnosis
--- NOTE | 2019-12-22 12:09 | Fluoroscopy Report ---
FL ERCP biliary ductal CLINICAL HISTORY: ERCP IN OR COMPARISON STUDY: MRCP 12/21/2019. FLUOROSCOPY TIME: 78 seconds. FINDINGS: 8 fluoroscopic spot images of the right upper quadrant demonstrate an endoscope within the duodenum with cannulation of the ampulla. There are guidewire seen within the common bile duct and ma in pancreatic duct. Contrast is injected into the common bile duct. There is distal narrowing of the common bile duct. A balloon sweep was performed. The intra and extra hepatic bile ducts are dilated. A common bile duct stent and main pancreatic duct stents were placed. These appear in good position. An IVC filter is present. IMPRESSION: Fluoroscopy provided for ERCP with placement of a common bile duct and main pancreatic du ct stent. ACT 112: Negative or not required by law. Electronically signed by: De Cisneros M.D. 12/22/2019 12:07 PM
--- NOTE | 2019-12-22 12:14 | Pharmacy Report ---
Pharmacy Abx Dose Short Note - Date of Service December 22, 2019 - Assessment & Plan Assessment * 79 year old M receiving vancomycin, cefepime and Flagyl for treatment of b/l LE cellulitis and cholecystitis with cholangitis. * Day # 2 of antimicrobial therapy * SCr improved further today, as expected (1.66 mg/dL, est CrCl 45 mL/min) * Discussed with provider re: need to continue vancomycin. Prefers to continue for now. Plan Vancomycin * Continue dose of 1500 mg (15 mg/kg) IV q18h (est t1/2 = 16.5 hrs with current CrCl) * Goal trough level : 15 to 20 mcg/mL * Trough level ordered for: 12/23/19 at 1330 Cefepime * 2 gm IV q24h remains appropriate for current est CrCl * Target dose for skin/skin structure and intra-abdominal: 2 gm IV q8-12 hours Flagyl * Not dosed by pharmacy but appropriate at 500 mg IV q8h Pharmacy will continue to follow and will adjust dose/frequency as necessary. Thank you.
[2019-12-22] MEDS ORDERED: FLOSEAL HEMOSTATIC MATRIX 10ML TOP ONE (12:24)
[2019-12-22] MEDS ORDERED: NEOSTIGMINE METHYLSULFATE 5 MG/5 ML SYR ONE (12:36)
[2019-12-22] MEDS ORDERED: GLYCOPYRROLATE 0.2 MG/ML VIAL ONE (12:36)
[2019-12-22] MEDS ORDERED: ACETAMINOPHEN 1,000 MG/100 ML VIAL IV STA (12:52)
--- NOTE | 2019-12-22 12:52 | Post Operative Brief Note ---
PG Immediate Post Op with CF Date of Surgery December 22, 2019 Pre & Post Diagnosis Operation Date: 12/22/19 13:50 Pre-Op Diagnosis: Choledocholithiasis, Acute cholecystitis, Sepsis Post-Op Diagnosis: Choledocholithiasis, Acute cholecystitis, Sepsis chronic cholecystitis I identified the patient and participated in the time-out.: Yes Procedure Operation Date: 12/22/19 13:50 Actual Procedures p Esophagogastroduodenoscopy, Endoscopic Retrograde Cholangiopancreatogram, Biliary and Pancreatic Stent Placement(Not Applicable) - Regina bruno Laparoscopic Cholecystectomy(Not Applicable) - Van Perez MD, FACS Surgeon Van Perez MD, FACS Renewals Specialist none Estimated Blood Loss 30 Findings Consistent with Post-Op Diagnosis Specimens Specimen Description: Endoscopy specimens to be obtained and handled by Endoscopy staff A. Gastric Bx 1055 Permanent Solution: A.) Gallbladder and Contents Drains Carrera Catheter (inserted prior to start of second procedure without difficulty) and Cayetano-Mcneal Drain (15 round)
[2019-12-22] MEDS ORDERED: HYDROmorphone INJ 0.5 MG/0.5 ML SYR IV PRN (12:55)
--- NOTE | 2019-12-22 13:11 | Operative Report (OR) ---
DATE OF OPERATION: 12/22/2019 NAME OF OPERATION: Laparoscopic cholecystectomy. PREOPERATIVE DIAGNOSIS: Acute cholecystitis. POSTOPERATIVE DIAGNOSES: Acute cholecystitis with choledocholithiasis and chronic cholecystitis. STAFF SURGEON: Van Perez MD. ACADEMIC AFFAIRS SPECIALIST: Mikala Oreilly PA-C. ANESTHESIA: General. DESCRIPTION OF PROCEDURE: The patient was in the operating room on the operating table in supine position. He had undergone ERCP with stone extraction and stent placement. His abdomen was prepped and draped in the usual fashion. My nurse practitioner physicians assistant helped with prepping, draping, removal of the gallbladder and closure of the wounds. 0.5% plain Marcaine was used to anesthetize all incisions. Incision was made above the umbilicus, carrying dissection down, placing a Veress needle through the fascia producing pneumoperitoneum, placing an 11 mm port. Under visualization, three 5 mm ports were placed, 1 cephalad and 2 laterally. The patient was placed in reverse Trendelenburg position. Dissection was carried out to the kelin hepatis. The patient had evidence of acute and severe chronic cholecystitis with adhesions to the gallbladder. These adhesions were taken down. Dissection carried out to the kelin hepatis, identifying the cystic duct and cystic artery. These were clipped and transected. I was also able to identify the common bile duct, which was significantly dilated. Gallbladder was then dissected away from the liver bed showing severe scar tissue and also edema consistent with severe acute and chronic cholecystitis. Gallbladder was placed in an Endobag. After appropriate irrigation and hemostasis, a #15 round Cayetano-Mcneal drain was placed through the lateral 5 mm port site into the subhepatic space, secured using 3-0 nylon suture. FloSeal was placed into the hepatic bed. Using a 5 mm camera, then the gallbladder was removed through the umbilical site. I had to enlarge the fascial defect because of the size of the gallbladder. Fascia was closed using both interrupted and running 0 PDS suture, subcutaneous tissue reapproximated using 0 Vicryl and 2-0 plain suture and then the skin reapproximated using 4-0 nylon suture. The patient was transferred to recovery room in stable condition. I attest to the content of the Intraoperative Record and any orders documented therein. Any exception s are noted below.
[2019-12-22] MEDS ORDERED: SUGAMMADEX SODIUM 200 MG/2 ML VIAL IV ONE (13:20)
--- NOTE | 2019-12-22 14:22 | Anesthesiology Progress Note ---
Date of Service December 22, 2019 Anesthesia Post Procedure Vital Signs Vital Signs: Temp Pulse Pulse Resp BP BP Pulse Ox 12/22/19 14:05 36.2 C L 65 20 149/79 H 99 12/22/19 13:55 69 20 143/72 H 99 12/22/19 13:46 36.5 C 70 15 143/80 H 99 12/22/19 09:55 37.1 C 78 16 121/74 94 12/22/19 07:50 36.6 C 76 18 115/68 93 12/22/19 06:57 87 16 92 12/22/19 04:11 74 113/71 12/22/19 03:56 36.4 C L 74 16 89/45 L 94 12/21/19 23:53 36.5 C 77 16 105/61 94 12/21/19 19:14 81 16 92 12/21/19 19:00 36.8 C 72 18 93/49 L 91 12/21/19 16:35 110/70 12/21/19 15:28 77 16 91 12/21/19 15:19 36.6 C 95 H 18 93/49 L 95 Pain Intensity Bilateral Lower Leg: Pain Intensity: 8 Transfer of Care Handoff Completed per policy Notes Mental Status: alert / awake / arousable and participated in evaluation Patient Amnestic to Procedure: Yes Nausea / Vomiting: adequately controlled Pain: adequately controlled Airway Patency, RR, SpO2: stable & adequate BP & HR: stable & adequate Hydration State: stable & adequate Anesthetic Complications: no major complications apparent and Pt Satisfied with anesthetic care
[2019-12-22] MEDS: PANTOprazole 40 MG in SYRINGE 0 ML IV SCH (14:52)
[2019-12-22] MEDS: CEFEPIME 2,000 MG in SYRINGE 7.5 ML IV SCH (20:09)
[2019-12-22] MEDS: DOCUSATE SODIUM/SENNA 50/8.6MG TAB PO SCH (20:09)
[2019-12-22] MEDS: HYDROCODONE/ACETAMOPHEN 5/325MG TAB PO PRN (20:33)
--- NOTE | 2019-12-22 23:34 | Hospitalist Progress Note ---
Date of Service December 22, 2019 Assessment & Plan (1) Cholangitis: confirmed on ERCP today. several CBD stones with visible purulent fluid. s/p pancreatic duct stent and CBD stent by Dr Galvez. appreciate his assistance. will need outpatient repeat ERCP to remove stents. needs 2-weeks of IV/PO abx to cover for cholangitis. (2) Acute cholecystitis: appreciate Dr Perez's assistance. s/p lap shanell today. gross appearance of gall bladder during surgery suggestive of acute/chronic cholecystitis. full liquid diet ordered. cont gentle fluids. (3) Choledocholithiasis: Suggested on RUQ u/s, and confirmed on MRCP. Will need ERCP. Will consult [facility]. Need to assume he has cholangitis - keep NPO, IV fluids, and broad-spectrum IV antibiotics. Repeat LFTs in am. I am surprised he has no LFT abnormalities as of this am. (4) Sepsis: Present on admission. 2nd to LLE cellulitis along with acute cholecystitis as well as cholangitis given the ERCP findings. sepsis slowly improving. blood cx's remain negative. cont IVF, supportive care, and cefepime/flagyl/vanco (vanco for cellulitis, cefepime/flagyl for cholecystitis/cholangitis). (5) Cellulitis of left lower extremity: mild-moderate. improving. I spoke with his and a friend that helps him at his home (Zenon). The friend feels that the ulceration on the LLE came from an incident outside at his home that involved a tractor and hauling some form of metal? continue local wound care. continue IV abx. in light of potential metal injury to the skin will give TDaP vaccine x 1. (6) Acute renal failure due to tubular necrosis: CYNDI improving with supportive care and IVF. ATN is sepsis-associated. BMP am. Cont IVF. (7) Hypotension: off/on since admission. diuretics and home BP meds on home. hypotension c/w sepsis. supportive care and IVF. IV antibiotics. (8) Sacral decubitus ulcer, stage II: per admitting MD wound. care consult also appreciate their input for LE ulceration on left (9) Paroxysmal atrial fibrillation: NSR since admission does not take anticoagulation per home med list cont telemetry (10) Asthma: not in exacerbation cont bronchodilators (11) Hypertension: holding all home anti-hypertensives due to low or low-normal BPS (12) Chronic venous insufficiency: resume diuretics later in stay hold for now [facility] venous stasis ulcers has seen Dr Benítez in the past for vascular studies as well (13) History of DVT (deep vein thrombosis): on CT imaging he has IVC filter in place would need to investigate records to determine details of this heparin SC for DVT proph (14) Metabolic encephalopathy: likely sepsis-related improved today does he have cognitive impairment at baseline? (15) IDDM (insulin dependent diabetes mellitus): per and friend/"son" he lost 100 pounds over the last year and no longer is taking ANY insulin at home a1c is just over 7 c/w T2DM but diet controlled glycemic control has been adequate while here use novolog sliding scale for meal-coverage only defer on basal for now (16) Severe protein-calorie malnutrition: at least 40kg weight loss from 04/2019 to present poor appetite due to chronic gall bladder issues? occult malignancy? other? after this admission would recommend additional work-up for such (17) Heme positive stool: per ER attending had trace heme+ stool in ER H/H remain stable however [id number] patient was placed on IV protonix EGD today with gastritis which is likely cause of heme+ stool cont PPI (18) Gastritis: as seen on EGD Today by DR Galvez cont PPI (19) DVT prophylaxis: has IVC filter but would start heparin SC BID tomorrow am updated and Zenon by phone extensively on 12/21/19 when I called his a gentleman named Zenon Ledesma joined the call and identified himself as the pt's caregiver he is not related to the [place] but apparently is very close to them and he is almost like a son to them I asked who held the POA and his stated that the two of them (she & Zenon) would be making decisions together Zenon mentioned patient had lost 100 pounds in the last year due to poor eating and asked us to look into this while here all of the above was relayed to social professionals today he will need PT/OT evals while hospitalized Admission and Anticipated Discharge Date Admission Date: December 20, 2019 Subjective I saw the patient post-op from his EGD, ERCP, and lap shanell. he was resting comfortably in bed with multiple blankets around him. he seemed more awake and alert than yesterday. he feels better than yesterday. mild abdominal pain from his surgery. denies any dyspnea or chest pain. tele overnight wnl. Review of Systems Constitutional: + chills; no fever Respiratory: no cough and no dyspnea Cardiovascular: no chest pain Gastrointestinal: no nausea and no vomiting Physical Exam Constitutional: + frail appearing; no acute distress and no altered mental status ENMT: Mouth: + dry oral mucous membranes Respiratory: Auscultation: + diminished lung sounds; no crackles and no wh eezes Cardiovascular: Rate/Rhythm: regular rate and regular rhythm Heart Sounds: normal S1 and normal S2; no murmur Vessels: posterior tibial pulses present and dorsalis pedis pulses present; no JVD Extremities: + edema (1+ LLE; <1+ RLE) Gastrointestinal (Abdomen): Inspection/Auscultation: normal bowel sounds; abdomen not distended Percussion/Palpation: + abdomen tender (Incisional) and abdomen soft; no hepatosplenomegaly Skin: venous stasis changes b/l shins; ulceration LLE burgess improved cellulitis; not as warm, erythematous or tender today; ulcer covered w/ optifoams; right burgess w/o cellulitis; minor ulcerations right burgess; optifoam in place Psychiatric: Orientation: alert, oriented to person, oriented to place and oriented to time Results & Data Results & Data ([facility]) Vital Signs (Past 12 Hours) Vital Signs Temp Pulse Pulse Resp BP BP Pulse Ox 12/22/19 23:12 36.4 C L 70 19 105/57 L 94 12/22/19 23:02 79 12/22/19 18:49 36.6 C 76 18 109/62 96 12/22/19 15:20 36.4 C L 67 18 144/79 H 100 12/22/19 14:45 36.5 C 70 16 145/75 H 100 12/22/19 14:15 65 16 137/69 99 12/22/19 14:05 36.2 C L 65 20 149/79 H 99 12/22/19 13:55 69 20 143/72 H 99 12/22/19 13:46 36.5 C 70 15 143/80 H 99 Laboratory Results Laboratory Results - last 24 hr 12/22/19 12/22/19 12/22/19 05:44 07:38 13:56 Sodium 142 D Potassium 3.9 D Chloride 108 H Carbon Dioxide 27 Anion Gap 7.0 BUN 51 H Creatinine 1.66 H D Est Cr Clr Drug Dosing 45.0 Est GFR ( Amer) 45.4 Est GFR (Non-Af Amer) 39.2 BUN/Creatinine Ratio 31.0 H Glucose 103 H POC Glucose 92 116 H Calcium 8.6 Total Bilirubin 0.6 AST 12 L ALT 16 Alkaline Phosphatase 100 Total Protein 6.6 Albumin 3.0 L Globulin 3.6 Albumin/Globulin Ratio 0.8 L 12/22/19 12/22/19 16:28 20:16 Sodium Potassium Chloride Carbon Dioxide Anion Gap BUN Creatinine Est Cr Clr Drug Dosing Est GFR ( Amer) Est GFR (Non-Af Amer) BUN/Creatinine Ratio Glucose POC Glucose 114 H 151 H Calcium Total Bilirubin AST ALT Alkaline Phosphatase Total Protein Albumin Globulin Albumin/Globulin Ratio PG Care Time/CCT Total # of Minutes Spent Total Time Spent with Patient: Total time spent is greater than 50% in coordination of care (as documented) at patient's floor/unit and/or counseling patient: Coding Level of Care Code 25981 Subseq Hosp Care Lvl 3 Diagnoses Cholangitis K83.09 Acute cholecystitis K81.0 Choledocholithiasis K80.50 Sepsis A41.9; R65.20; N17.0 Acute renal failure type: with acute tubular necrosis Sepsis acute organ dysfunction status: with acute organ dysfunction Sepsis type: sepsis due to unspecified organism Severe sepsis acute organ dysfunction type: acute renal failure Severe sepsis shock status: unspecified Cellulitis of left lower extremity L03.116 Acute renal failure due to tubular necrosis N17.0 Hypotension I95.9 Sacral decubitus ulcer, stage II L89.152 Paroxysmal atrial fibrillation I48.0 Asthma J45.909 Hypertension I10 Chronic venous insufficiency I87.2 History of DVT (deep vein thrombosis) Z86.718 Metabolic encephalopathy G93.41 IDDM (insulin dependent diabetes mellitus) E11.9; Z79.4 Severe protein-calorie malnutrition E43 Heme positive stool R19.5 Gastritis K29.70 DVT prophylaxis Z29.9 (1) Sepsis Acute renal failure type: with acute tubular necrosis Sepsis acute organ dysfunction status: with acute organ dysfunction Sepsis type: sepsis due to unspecified organism Severe sepsis acute organ dysfunction type: acute renal failure Severe sepsis shock status: unspecified Qualified Code(s): A41.9 - Sepsis, unspecified organism; R65.20 - Severe sepsis without septic shock; N17.0 - Acute kidney failure with tubular necrosis
[2019-12-23] MEDS: SODIUM CHLORIDE 0.9% 1000ML 1,000 ML IV SCH ×2 (01:10→16:07)
[2019-12-23] MEDS: metroNIDAZOLE 500 MG/100 ML BAG IV SCH ×3 (03:48→20:24)
[2019-12-23 06:17] LABS: Basophils # (auto) 0.02 K/uL (0-0.2); Basophils % (auto) 0.3 %; Eosinophils # (auto) 0.28 K/uL (0-0.5); Eosinophils % (auto) 3.9 %; Hematocrit (blood only) 38.1 % (42-52); Hemoglobin 12.4 g/dL (14.0-18.0); Immature Granulocytes # (auto) 0.03 K/uL (0.00-0.02); Immature Granulocytes % (auto) 0.4 %; Lymphocytes # (auto) 0.55 K/uL (1.2-3.4); Lymphocytes % (auto) 7.7 %; Mean Corpuscular Hemoglobin 30.2 pg (25-34); Mean Corpuscular Hgb Conc 32.5 g/dL (32-36); Mean Corpuscular Volume 92.9 fL (80-100); Mean Platelet Volume 10.5 fL (7.4-10.4); Monocytes # (auto) 0.82 K/uL (0.11-0.59); Monocytes % (auto) 11.4 %; Neutrophils # (auto) 5.48 K/uL (1.4-6.5); Neutrophils % (auto) 76.3 %; Platelet Count 181 K/uL (130-400); RDW Coefficient of Variation 16.4 % (11.5-14.5); RDW Standard Deviation 55.7 fL (36.4-46.3); White Blood Count 7.18 K/uL (4.8-10.8)
[2019-12-23 06:49] LABS: Creatinine Clr Calc Pharmacy 61.1 ml/min; Est GFR (African American) 65.9; Est GFR (Non-African American) 56.8
[2019-12-23] MEDS: ALBUT/IPRATROP 3MG/0.5MG NEB 3 ML VIAL INH SCH ×4 (07:08→18:57)
[2019-12-23 07:40] LABS: BUN Creatinine Ratio 26.5 (10-20); Calcium 8.6 mg/dl (8.5-10.1); Creatinine Clr Calc Pharmacy 55.6 ml/min; Est GFR (African American) 58.8; Est GFR (Non-African American) 50.7; Potassium 4.2 mmol/L (3.5-5.1)
[2019-12-23] MEDS ORDERED: DIPHTHERIA/TETANUS/PERTUSSIS 0.5 ML SYR/VIAL IM ONE (08:00)
--- NOTE | 2019-12-23 08:20 | Gastroenterology Progress Note ---
Date of Service December 23, 2019 Assessment & Plan (1) Cholangitis: Patient admitted with complications related to choledocholithiasis and mild cholangitis. This morning he appears to be much improved. Recommendations advance diet as tolerated from my perspective Complete 14-day course of broad-spectrum antibiotics Avoid nonsteroidals for 1 week Consider daily labs to include hepatic function panel Repeat ERCP for stent removal in 6 to 8 weeks GI to sign off call with any questions or concerns Admission and Anticipated Discharge Date Admission Date: December 20, 2019 Anticipated date of discharge: 12/23/19 Subjective The patient notes that his abdominal pain is improved from yesterday. No fevers were noted overnight. He underwent ERCP and cholecystectomy. Review of Systems Constitutional: no sweats and no malaise Eyes: no diplopia Respiratory: no change in sputum Physical Exam Constitutional: No scleral icterus today Neck: trachea midline, no thyromegaly Respiratory: normal respiratory effort; does not use accessory muscles Cardiovascular: Heart Sounds: + murmur Gastrointestinal (Abdomen): Percussion/Palpation: abdomen soft; no guarding Results & Data ([facility]) Vital Signs (Past 12 Hours) Vital Signs Temp Pulse Pulse Resp BP BP Pulse Ox 12/23/19 07:23 36.7 C 70 24 110/68 94 12/23/19 07:10 71 16 97 12/23/19 04:02 36.7 C 68 18 95/57 L 95 12/22/19 23:12 36.4 C L 70 19 105/57 L 94 12/22/19 23:02 79 Laboratory Results Laboratory Results - last 24 hr 12/22/19 12/22/19 12/22/19 13:56 16:28 20:16 WBC RBC Hgb Hct MCV MCH MCHC RDW Std Deviation RDW Coeff of Woo Plt Count MPV Immature Gran % (Auto) Neut % (Auto) Lymph % (Auto) Mcminn % (Auto) Eos % (Auto) Baso % (Auto) Immature Gran # (Auto) Neut # (Auto) Lymph # (Auto) Mcminn # (Auto) Eos # (Auto) Baso # (Auto) Sodium Potassium Chloride Carbon Dioxide Anion Gap BUN Creatinine Est Cr Clr Drug Dosing Est GFR ( Amer) Est GFR (Non-Af Amer) BUN/Creatinine Ratio Glucose POC Glucose 116 H 114 H 151 H Calcium 12/23/19 12/23/19 12/23/19 06:05 06:05 06:06 WBC 7.18 RBC 4.10 L Hgb 12.4 L Hct 38.1 L MCV 92.9 MCH 30.2 MCHC 32.5 RDW Std Deviation 55.7 H RDW Coeff of Woo 16.4 H Plt Count 181 MPV 10.5 H Immature Gran % (Auto) 0.4 Neut % (Auto) 76.3 Lymph % (Auto) 7.7 Mcminn % (Auto) 11.4 Eos % (Auto) 3.9 Baso % (Auto) 0.3 Immature Gran # (Auto) 0.03 H Neut # (Auto) 5.48 Lymph # (Auto) 0.55 L Mcminn # (Auto) 0.82 H Eos # (Auto) 0.28 Baso # (Auto) 0.02 Sodium 144 Potassium 4.2 Chloride 111 H Carbon Dioxide 27 Anion Gap 6.0 BUN 35 H Creatinine 1.22 D 1.34 Est Cr Clr Drug Dosing 61.1 55.6 Est GFR ( Amer) 65.9 58.8 Est GFR (Non-Af Amer) 56.8 50.7 BUN/Creatinine Ratio 26.5 H Glucose 117 H POC Glucose Calcium 8.6 12/23/19 07:20 WBC RBC Hgb Hct MCV MCH MCHC RDW Std Deviation RDW Coeff of Woo Plt Count MPV Immature Gran % (Auto) Neut % (Auto) Lymph % (Auto) Mcminn % (Auto) Eos % (Auto) Baso % (Auto) Immature Gran # (Auto) Neut # (Auto) Lymph # (Auto) Mcminn # (Auto) Eos # (Auto) Baso # (Auto) Sodium Potassium Chloride Carbon Dioxide Anion Gap BUN Creatinine Est Cr Clr Drug Dosing Est GFR ( Amer) Est GFR (Non-Af Amer) BUN/Creatinine Ratio Glucose POC Glucose 104 H Calcium
[2019-12-23] MEDS: INSULIN ASPART 100 UNITS/ML 3 ML PEN SC SCH ×4 (08:28→20:24)
[2019-12-23] MEDS: DOCUSATE SODIUM/SENNA 50/8.6MG TAB PO SCH ×2 (08:29→20:29)
[2019-12-23] MEDS: HEPARIN SOD 5,000 UNIT/0.5 ML VIAL SQ SCH ×2 (08:29→20:29)
[2019-12-23] MEDS: PANTOprazole 40 MG in SYRINGE 0 ML IV SCH (10:09)
--- NOTE | 2019-12-23 11:57 | Anesthesiology Progress Note ---
Date of Service December 23, 2019 Anesthesia Post Procedure Vital Signs Vital Signs: Temp Pulse Pulse Resp BP BP Pulse Ox 12/23/19 07:23 36.7 C 70 24 110/68 94 12/23/19 07:10 71 16 97 12/23/19 04:02 36.7 C 68 18 95/57 L 95 12/22/19 23:12 36.4 C L 70 19 105/57 L 94 12/22/19 23:02 79 12/22/19 18:49 36.6 C 76 18 109/62 96 12/22/19 15:20 36.4 C L 67 18 144/79 H 100 12/22/19 14:45 36.5 C 70 16 145/75 H 100 12/22/19 14:15 65 16 137/69 99 12/22/19 14:05 36.2 C L 65 20 149/79 H 99 12/22/19 13:55 69 20 143/72 H 99 12/22/19 13:46 36.5 C 70 15 143/80 H 99 Pain Intensity Bilateral Lower Leg: Pain Intensity: 8 Notes Mental Status: alert / awake / arousable and participated in evaluation Patient Amnestic to Procedure: Yes Nausea / Vomiting: adequately controlled Pain: adequately controlled Airway Patency, RR, SpO2: stable & adequate BP & HR: stable & adequate Hydration State: stable & adequate Anesthetic Complications: no major complications apparent and Pt Satisfied with anesthetic care
--- NOTE | 2019-12-23 12:16 | Family Medicine Progress Note ---
Date of Service December 23, 2019 Assessment & Plan Admission and Anticipated Discharge Date Admission Date: Cholangitis Acute cholecystitis Choledocholithiasis Status post laparoscopic cholecystectomy, postop day #1 Advance diet per surgical recommendations Complete 14-day course of broad-spectrum antibiotics Avoid nonsteroidals for 1 week CBC and CMP daily Repeat ERCP for stent removal in 6 to 8 weeks Cellulitis, left lower extremity Sepsis, improving Continue on IV fluids, although will decrease as his oral intake improves Cefepime/flagyl/vanco (vanco for cellulitis, cefepime/flagyl for cholecystitis/cholangitis). Tdap given today given history of injury to left lower extremity which may have been the start of the cellulitis Acute renal failure due to tubular necrosis IV fluids ATN is sepsis-associated. BMP AM Monitor BMP daily Sacral decubitus ulcer, stage II wound. care consult also appreciate their input for LE ulceration on left Paroxysmal atrial fibrillation NSR since admission does not take anticoagulation per home med list cont telemetry Asthma not in exacerbation cont bronchodilators Hypertension holding all home anti-hypertensives due to low or low-normal BPS Will need to monitor blood pressures and resume home antihypertensives at some point Chronic venous insufficiency Diuretics currently on hold hold for now [facility] venous stasis ulcers has seen Dr Benítez in the past for vascular studies as well History of DVT (deep vein thrombosis) CT imaging demonstrates he has IVC filter in place would need to investigate records to determine details of this Metabolic encephalopathy likely sepsis-related Resolved IDDM (insulin dependent diabetes mellitus) per and friend/"son" he lost 100 pounds over the last year and no longer is taking ANY insulin at home a1c is just over 7 c/w T2DM but diet controlled glycemic control has been adequate while here use novolog sliding scale for meal-coverage only defer on basal for now Severe protein-calorie malnutrition AT least 40kg weight loss from 04/2019 to present Unclear at this time if the weight loss was secondary to chronic cholecystitis or other process/question malignancy We will need to consider additional work-up following discharge Heme positive stool Gastritis, seen on EGD Hemoglobin remained stable Continue Protonix and likely switch to oral DVT prophylaxis We will start subcutaneous heparin this evening, prophylaxis dosing Anticipated date of discharge: 12/23/19 (Uncertain) Subjective The patient is seen this morning. He has no complaints. He does not note any flatus but he has obvious bowel sounds upon auscultation. Denies having any nausea or vomiting. Denies any abdominal pain. Sounds like he had some clears this morning without any difficulty. Review of Systems Constitutional: no fever Eyes: no problem reported Ear, Nose, Mouth, Throat: no problem reported Respiratory: no cough Cardiovascular: no chest pain with activity Gastrointestinal: no abdominal pain, no bloating, no nausea and no vomiting He does have some mild incisional discomfort, as would be expected Genitourinary: no dysuria Musculoskeletal: no problem reported Neurologic: no confusion Physical Exam Constitutional: WD/WN, vitals as above Eyes: PERRL, conjunctivae normal, anicteric sclerae ENMT: external ear and nose normal, oropharynx normal Neck: trachea midline, no thyromegaly normal visual inspection and trachea midline Respiratory: normal respiratory effort, lungs clear to auscultation normal respiratory effort Cardiovascular: RRR, no murmur, no edema Musculoskeletal: Incisions are bandaged but no obvious discharge or fluids. Bowel sounds are noted to the active throughout. Skin: no rashes, warm and dry Wound on legs are dressed. Psychiatric: A+Ox3, euthymic affect Results & Data ([facility]) Vital Signs (Past 12 Hours) Vital Signs Temp Pulse Resp BP BP Pulse Ox 12/23/19 07:23 36.7 C 70 24 110/68 94 12/23/19 07:10 71 16 97 12/23/19 04:02 36.7 C 68 18 95/57 L 95 Laboratory Results Laboratory Results - last 24 hr 12/22/19 12/22/19 12/22/19 13:56 16:28 20:16 WBC RBC Hgb Hct MCV MCH MCHC RDW Std Deviation RDW Coeff of Woo Plt Count MPV Immature Gran % (Auto) Neut % (Auto) Lymph % (Auto) [place] % (Auto) Eos % (Auto) Baso % (Auto) Immature Gran # (Auto) Neut # (Auto) Lymph # (Auto) [place] # (Auto) Eos # (Auto) Baso # (Auto) Sodium Potassium Chloride Carbon Dioxide Anion Gap BUN Creatinine Est Cr Clr Drug Dosing Est GFR ( Amer) Est GFR (Non-Af Amer) BUN/Creatinine Ratio Glucose POC Glucose 116 H 114 H 151 H Calcium 12/23/19 12/23/19 12/23/19 06:05 06:05 06:06 WBC 7.18 RBC 4.10 L Hgb 12.4 L Hct 38.1 L MCV 92.9 MCH 30.2 MCHC 32.5 RDW Std Deviation 55.7 H RDW Coeff of Woo 16.4 H Plt Count 181 MPV 10.5 H Immature Gran % (Auto) 0.4 Neut % (Auto) 76.3 Lymph % (Auto) 7.7 [place] % (Auto) 11.4 Eos % (Auto) 3.9 Baso % (Auto) 0.3 Immature Gran # (Auto) 0.03 H Neut # (Auto) 5.48 Lymph # (Auto) 0.55 L [place] # (Auto) 0.82 H Eos # (Auto) 0.28 Baso # (Auto) 0.02 Sodium 144 Potassium 4.2 Chloride 111 H Carbon Dioxide 27 Anion Gap 6.0 BUN 35 H Creatinine 1.22 D 1.34 Est Cr Clr Drug Dosing 61.1 55.6 Est GFR ( Amer) 65.9 58.8 Est GFR (Non-Af Amer) 56.8 50.7 BUN/Creatinine Ratio 26.5 H Glucose 117 H POC Glucose Calcium 8.6 12/23/19 07:20 WBC RBC Hgb Hct MCV MCH MCHC RDW Std Deviation RDW Coeff of Woo Plt Count MPV Immature Gran % (Auto) Neut % (Auto) Lymph % (Auto) [place] % (Auto) Eos % (Auto) Baso % (Auto) Immature Gran # (Auto) Neut # (Auto) Lymph # (Auto) [place] # (Auto) Eos # (Auto) Baso # (Auto) Sodium Potassium Chloride Carbon Dioxide Anion Gap BUN Creatinine Est Cr Clr Drug Dosing Est GFR ( Amer) Est GFR (Non-Af Amer) BUN/Creatinine Ratio Glucose POC Glucose 104 H Calcium
--- NOTE | 2019-12-23 12:24 | Surgery Progress Note ---
Date of Service December 23, 2019 Assessment & Plan (1) Cholangitis: s/p ercp/ stent and now lap shanell. doing well. OK to advance diet and d/c castaneda catheter. Keep JARETH drain. Subjective Denies complaints. Has tolerated liquids since lap shanell yesterday. No nausea Review of Systems Review of Systems: All systems reviewed & are unremarkable except as noted in HPI & below Physical Exam Gastrointestinal (Abdomen): Inspection/Auscultation: abdomen normal to inspection and + abdomen distended (mild); + abnormal bowel sounds (hypoactive) Percussion/Palpation: abdomen soft; abdomen nontender and no guarding incisions clean, JARETH serosanguinous Neurologic: moves all extremities; no focal motor deficits Psychiatric: Orientation: alert and oriented x 3 Results & Data Vital Signs (Past 12 Hours) Vital Signs Temp Pulse Resp BP BP Pulse Ox 12/23/19 12:00 37.1 C 73 20 107/63 95 12/23/19 07:23 36.7 C 70 24 110/68 94 12/23/19 07:10 71 16 97 12/23/19 04:02 36.7 C 68 18 95/57 L 95 Laboratory Results 12/23/19 12/23/19 12/23/19 Range/Units 11:37 07:20 06:06 WBC (4.8-10.8) K/uL RBC (4.7-6.1) M/uL Hgb (14.0-18.0) g/dL Hct (42-52) % MCV (80-100) fL MCH (25-34) pg MCHC (32-36) g/dL RDW Std Deviation (36.4-46.3) fL RDW Coeff of Woo (11.5-14.5) % Plt Count (130-400) K/uL MPV (7.4-10.4) fL Immature Gran % (Auto) % Neut % (Auto) % Lymph % (Auto) % [place] % (Auto) % Eos % (Auto) % Baso % (Auto) % Immature Gran # (Auto) (0.00-0.02) K/uL Neut # (Auto) (1.4-6.5) K/uL Lymph # (Auto) (1.2-3.4) K/uL [place] # (Auto) (0.11-0.59) K/uL Eos # (Auto) (0-0.5) K/uL Baso # (Auto) (0-0.2) K/uL Sodium 144 (136-145) mmol/L Potassium 4.2 (3.5-5.1) mmol/L Chloride 111 H (98-107) mmol/L Carbon Dioxide 27 (21-32) mmol/L Anion Gap 6.0 (3-11) BUN 35 H (7-18) mg/dl Creatinine 1.34 (0.6-1.4) mg/dl Est Cr Clr Drug Dosing 55.6 ml/min Est GFR ( Amer) 58.8 Est GFR (Non-Af Amer) 50.7 BUN/Creatinine Ratio 26.5 H (10-20) Glucose 117 H (70-99) mg/dl POC Glucose 101 H 104 H (70-99) mg/dl Calcium 8.6 (8.5-10.1) mg/dl 12/23/19 12/23/19 12/22/19 Range/Units 06:05 06:05 20:16 WBC 7.18 (4.8-10.8) K/uL RBC 4.10 L (4.7-6.1) M/uL Hgb 12.4 L (14.0-18.0) g/dL Hct 38.1 L (42-52) % MCV 92.9 (80-100) fL MCH 30.2 (25-34) pg MCHC 32.5 (32-36) g/dL RDW Std Deviation 55.7 H (36.4-46.3) fL RDW Coeff of Woo 16.4 H (11.5-14.5) % Plt Count 181 (130-400) K/uL MPV 10.5 H (7.4-10.4) fL Immature Gran % (Auto) 0.4 % Neut % (Auto) 76.3 % Lymph % (Auto) 7.7 % [place] % (Auto) 11.4 % Eos % (Auto) 3.9 % Baso % (Auto) 0.3 % Immature Gran # (Auto) 0.03 H (0.00-0.02) K/uL Neut # (Auto) 5.48 (1.4-6.5) K/uL Lymph # (Auto) 0.55 L (1.2-3.4) K/uL [place] # (Auto) 0.82 H (0.11-0.59) K/uL Eos # (Auto) 0.28 (0-0.5) K/uL Baso # (Auto) 0.02 (0-0.2) K/uL Sodium (136-145) mmol/L Potassium (3.5-5.1) mmol/L Chloride (98-107) mmol/L Carbon Dioxide (21-32) mmol/L Anion Gap (3-11) BUN (7-18) mg/dl Creatinine 1.22 D (0.6-1.4) mg/dl Est Cr Clr Drug Dosing 61.1 ml/min Est GFR ( Amer) 65.9 Est GFR (Non-Af Amer) 56.8 BUN/Creatinine Ratio (10-20) Glucose (70-99) mg/dl POC Glucose 151 H (70-99) mg/dl Calcium (8.5-10.1) mg/dl 12/22/19 12/22/19 Range/Units 16:28 13:56 WBC (4.8-10.8) K/uL RBC (4.7-6.1) M/uL Hgb (14.0-18.0) g/dL Hct (42-52) % MCV (80-100) fL MCH (25-34) pg MCHC (32-36) g/dL RDW Std Deviation (36.4-46.3) fL RDW Coeff of Woo (11.5-14.5) % Plt Count (130-400) K/uL MPV (7.4-10.4) fL Immature Gran % (Auto) % Neut % (Auto) % Lymph % (Auto) % [place] % (Auto) % Eos % (Auto) % Baso % (Auto) % Immature Gran # (Auto) (0.00-0.02) K/uL Neut # (Auto) (1.4-6.5) K/uL Lymph # (Auto) (1.2-3.4) K/uL [place] # (Auto) (0.11-0.59) K/uL Eos # (Auto) (0-0.5) K/uL Baso # (Auto) (0-0.2) K/uL Sodium (136-145) mmol/L Potassium (3.5-5.1) mmol/L Chloride (98-107) mmol/L Carbon Dioxide (21-32) mmol/L Anion Gap (3-11) BUN (7-18) mg/dl Creatinine (0.6-1.4) mg/dl Est Cr Clr Drug Dosing ml/min Est GFR ( Amer) Est GFR (Non-Af Amer) BUN/Creatinine Ratio (10-20) Glucose (70-99) mg/dl POC Glucose 114 H 116 H (70-99) mg/dl Calcium (8.5-10.1) mg/dl
[2019-12-23] MEDS ORDERED: VANCOMYCIN TROUGH ONE (13:30)
--- NOTE | 2019-12-23 14:13 | Pharmacy Report ---
Pharmacy Abx Dose Short Note - Date of Service December 23, 2019 - Assessment & Plan Assessment * 79 year old M receiving vancomycin, cefepime and Flagyl for treatment of b/l LE cellulitis and cholecystitis with cholangitis. * Day #3 of antimicrobial therapy * SCr improved further today, 1.34 mg/dL, est CrCl 56 mL/min Plan Vancomycin * Trough obtained today was supratherapeutic at 24.7 mcg/mL * However, kidney fxn has improved drastically over the past ~48 hours * Will continue 1500 mg (15 mg/kg) IV q18h (est t1/2 = 15 hrs with current CrCl) with the next dose to be given at 1800 tonight * Will obtain another trough tomorrow, prior to 1200 dose Cefepime * 2 gm IV q24h remains appropriate for current est CrCl * Target dose for skin/skin structure and intra-abdominal: 2 gm IV q8-12 hours Flagyl * Not dosed by pharmacy but appropriate at 500 mg IV q8h Pharmacy will continue to follow and will adjust dose/frequency as necessary. Thank you.
[2019-12-23] MEDS: VANCOMYCIN HCL 1,500 MG in SODIUM CHLORIDE 0.9% 500 ML IV SCH (17:22)
[2019-12-23] MEDS: CEFEPIME 2,000 MG in SYRINGE 7.5 ML IV SCH (20:23)
[2019-12-23] MEDS: HYDROCODONE/ACETAMOPHEN 5/325MG TAB PO PRN (20:56)
[2019-12-24] MEDS: metroNIDAZOLE 500 MG/100 ML BAG IV SCH ×3 (04:34→21:39)
[2019-12-24] MEDS: HYDROCODONE/ACETAMOPHEN 5/325MG TAB PO PRN ×2 (04:41→21:39)
--- NOTE | 2019-12-24 06:11 | Communication Note ---
Date of Service: December 24, 2019 Informed that patient had an eight beat asymptomatic run of V tach, will check K mag and Phos with morning labs.
[2019-12-24 06:34] LABS: Hemoglobin 12.3 g/dL (14.0-18.0); Mean Corpuscular Hemoglobin 30.4 pg (25-34); Mean Corpuscular Hgb Conc 32.4 g/dL (32-36); Mean Corpuscular Volume 94.1 fL (80-100); Mean Platelet Volume 10.6 fL (7.4-10.4); Platelet Count 183 K/uL (130-400); RDW Coefficient of Variation 16.5 % (11.5-14.5); RDW Standard Deviation 56.7 fL (36.4-46.3); Red Blood Count 4.04 M/uL (4.7-6.1)
[2019-12-24 07:01] LABS: Magnesium 2.7 mg/dl (1.8-2.4)
[2019-12-24 07:02] LABS: Albumin Level 2.6 gm/dl (3.4-5.0); BUN Creatinine Ratio 22.9 (10-20); Calcium 9.1 mg/dl (8.5-10.1); Creatinine Clr Calc Pharmacy 66.5 ml/min; Potassium 4.1 mmol/L (3.5-5.1)
[2019-12-24 07:05] LABS: Albumin Globulin Ratio 0.7 (0.9-2); Bilirubin,Total 0.5 mg/dl (0.2-1); Globulin 3.5 gm/dl (2.5-4.0); Total Protein 6.1 gm/dl (6.4-8.2)
[2019-12-24] MEDS: ALBUT/IPRATROP 3MG/0.5MG NEB 3 ML VIAL INH SCH ×2 (07:08→11:45)
[2019-12-24] MEDS: DOCUSATE SODIUM/SENNA 50/8.6MG TAB PO SCH ×2 (07:49→21:40)
[2019-12-24] MEDS: HEPARIN SOD 5,000 UNIT/0.5 ML VIAL SQ SCH ×2 (07:49→21:40)
[2019-12-24] MEDS: INSULIN ASPART 100 UNITS/ML 3 ML PEN SC SCH ×4 (07:52→21:39)
[2019-12-24] MEDS ORDERED: ALBUT/IPRATROP 3MG/0.5MG NEB 3 ML VIAL INH PRN (11:00)
[2019-12-24] MEDS ORDERED: VANCOMYCIN TROUGH ONE (11:30)
--- NOTE | 2019-12-24 11:51 | Family Medicine Progress Note ---
Date of Service December 24, 2019 Assessment & Plan Admission and Anticipated Discharge Date Admission Date: Cholangitis Acute cholecystitis Choledocholithiasis Status post laparoscopic cholecystectomy, postop day #2 Advance diet per surgical recommendations Complete 14-day course of broad-spectrum antibiotics Avoid nonsteroidals for 1 week CBC and CMP daily Repeat ERCP for stent removal in 6 to 8 weeks Cellulitis, left lower extremity Sepsis, improving Continue on IV fluids, although will decrease as his oral intake improves Cefepime/flagyl/vanco (vanco for cellulitis, cefepime/flagyl for cholecystitis/cholangitis). Tdap given yesterday given history of injury to left lower extremity which may have been the start of the cellulitis Acute renal failure due to tubular necrosis IV fluids discontinued yesterday with improved p.o. intake \\ Monitor BMP daily Sacral decubitus ulcer, stage II wound. care consult also appreciate their input for LE ulceration on left Paroxysmal atrial fibrillation NSR since admission does not take anticoagulation per home med list cont telemetry; one episode of V. tach overnight; potassium, magnesium look okay; phosphorus is a little low Asthma not in exacerbation Change bronchial dilators to as needed Hypertension holding all home anti-hypertensives due to low or low-normal BPS Will need to monitor blood pressures and resume home antihypertensives at some point Chronic venous insufficiency Diuretics currently on hold hold for now [facility] stasis ulcers has seen Dr Benítez in the past for vascular studies as well History of DVT (deep vein thrombosis) CT imaging demonstrates he has IVC filter in place would need to investigate records to determine details of this Metabolic encephalopathy likely sepsis-related Resolved IDDM (insulin dependent diabetes mellitus) per and friend/"son" he lost 100 pounds over the last year and no longer is taking ANY insulin at home a1c is just over 7 c/w T2DM but diet controlled glycemic control has been adequate while here use novolog sliding scale for meal-coverage only defer on basal for now Severe protein-calorie malnutrition AT least 40kg weight loss from 04/2019 to present Unclear at this time if the weight loss was secondary to chronic cholecystitis or other process/question malignancy We will need to consider additional work-up following discharge Heme positive stool Gastritis, seen on EGD Hemoglobin remained stable Continue Protonix; changed to p.o. DVT prophylaxis We will start subcutaneous heparin this evening, prophylaxis dosing Anticipated date of discharge: 12/23/19 (Uncertain) Subjective Mr. Munoz is seen around 10:00 this morning. He is awake lying in his bed. He tells me he does not feel quite as well as he did yesterday. He did not sleep well; he has really no specific complaints this morning other than feeling tired and "a little out of it." His speech is clear; he is alert and oriented. He did not have much in the way of breakfast. He does not complain of any significant abdominal pain; some mild generalized abdominal wall tenderness, but this seems no worse than yesterday. He does tell me that his left lower leg at the site of his wound/cellulitis feels little bit more "sore" compared to yesterday. 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 Review of Systems Constitutional: + weakness; no fever Eyes: no problem reported Ear, Nose, Mouth, Throat: no problem reported Respiratory: no cough and no dyspnea Cardiovascular: no chest pain with activity and no dyspnea at rest Gastrointestinal: no abdominal pain Genitourinary: no dysuria Musculoskeletal: + back pain Integumentary: + wounds Neurologic: + unsteadiness Psychiatric: + abnormal sleep pattern; no depression Physical Exam Constitutional: WD/WN, vitals as above Eyes: PERRL, conjunctivae normal, anicteric sclerae ENMT: external ear and nose normal, oropharynx normal Neck: trachea midline, no thyromegaly normal visual inspection and trachea midline Respiratory: normal respiratory effort, lungs clear to auscultation normal respiratory effort Cardiovascular: RRR, no murmur, no edema Skin: no rashes, warm and dry Psychiatric: A+Ox3, euthymic affect Results & Data ([facility]) Vital Signs (Past 12 Hours) Vital Signs Temp Pulse Pulse Resp BP Pulse Ox 12/24/19 08:00 64 12/24/19 07:30 36.8 C 66 20 117/64 93 12/24/19 07:08 67 16 94 12/24/19 02:31 36.7 C 64 17 105/62 95 Laboratory Results 12/23/19 12/23/19 12/23/19 Range/Units 11:37 07:20 06:06 WBC (4.8-10.8) K/uL RBC (4.7-6.1) M/uL Hgb (14.0-18.0) g/dL Hct (42-52) % MCV (80-100) fL MCH (25-34) pg MCHC (32-36) g/dL RDW Std Deviation (36.4-46.3) fL RDW Coeff of Woo (11.5-14.5) % Plt Count (130-400) K/uL MPV (7.4-10.4) fL Immature Gran % (Auto) % Neut % (Auto) % Lymph % (Auto) % [place] % (Auto) % Eos % (Auto) % Baso % (Auto) % Immature Gran # (Auto) (0.00-0.02) K/uL Neut # (Auto) (1.4-6.5) K/uL Lymph # (Auto) (1.2-3.4) K/uL [place] # (Auto) (0.11-0.59) K/uL Eos # (Auto) (0-0.5) K/uL Baso # (Auto) (0-0.2) K/uL Sodium 144 (136-145) mmol/L Potassium 4.2 (3.5-5.1) mmol/L Chloride 111 H (98-107) mmol/L Carbon Dioxide 27 (21-32) mmol/L Anion Gap 6.0 (3-11) BUN 35 H (7-18) mg/dl Creatinine 1.34 (0.6-1.4) mg/dl Est Cr Clr Drug Dosing 55.6 ml/min Est GFR ( Amer) 58.8 Est GFR (Non-Af Amer) 50.7 BUN/Creatinine Ratio 26.5 H (10-20) Glucose 117 H (70-99) mg/dl POC Glucose 101 H 104 H (70-99) mg/dl Calcium 8.6 (8.5-10.1) mg/dl 12/23/19 12/23/19 12/22/19 Range/Units 06:05 06:05 20:16 WBC 7.18 (4.8-10.8) K/uL RBC 4.10 L (4.7-6.1) M/uL Hgb 12.4 L (14.0-18.0) g/dL Hct 38.1 L (42-52) % MCV 92.9 (80-100) fL MCH 30.2 (25-34) pg MCHC 32.5 (32-36) g/dL RDW Std Deviation 55.7 H (36.4-46.3) fL RDW Coeff of Woo 16.4 H (11.5-14.5) % Plt Count 181 (130-400) K/uL MPV 10.5 H (7.4-10.4) fL Immature Gran % (Auto) 0.4 % Neut % (Auto) 76.3 % Lymph % (Auto) 7.7 % [place] % (Auto) 11.4 % Eos % (Auto) 3.9 % Baso % (Auto) 0.3 % Immature Gran # (Auto) 0.03 H (0.00-0.02) K/uL Neut # (Auto) 5.48 (1.4-6.5) K/uL Lymph # (Auto) 0.55 L (1.2-3.4) K/uL [place] # (Auto) 0.82 H (0.11-0.59) K/uL Eos # (Auto) 0.28 (0-0.5) K/uL Baso # (Auto) 0.02 (0-0.2) K/uL Sodium (136-145) mmol/L Potassium (3.5-5.1) mmol/L Chloride (98-107) mmol/L Carbon Dioxide (21-32) mmol/L Anion Gap (3-11) BUN (7-18) mg/dl Creatinine 1.22 D (0.6-1.4) mg/dl Est Cr Clr Drug Dosing 61.1 ml/min Est GFR ( Amer) 65.9 Est GFR (Non-Af Amer) 56.8 BUN/Creatinine Ratio (10-20) Glucose (70-99) mg/dl POC Glucose 151 H (70-99) mg/dl Calcium (8.5-10.1) mg/dl 12/22/19 12/22/19 Range/Units 16:28 13:56 WBC (4.8-10.8) K/uL RBC (4.7-6.1) M/uL Hgb (14.0-18.0) g/dL Hct (42-52) % MCV (80-100) fL MCH (25-34) pg MCHC (32-36) g/dL RDW Std Deviation (36.4-46.3) fL RDW Coeff of Woo (11.5-14.5) % Plt Count (130-400) K/uL MPV (7.4-10.4) fL Immature Gran % (Auto) % Neut % (Auto) % Lymph % (Auto) % [place] % (Auto) % Eos % (Auto) % Baso % (Auto) % Immature Gran # (Auto) (0.00-0.02) K/uL Neut # (Auto) (1.4-6.5) K/uL Lymph # (Auto) (1.2-3.4) K/uL [place] # (Auto) (0.11-0.59) K/uL Eos # (Auto) (0-0.5) K/uL Baso # (Auto) (0-0.2) K/uL Sodium (136-145) mmol/L Potassium (3.5-5.1) mmol/L Chloride (98-107) mmol/L Carbon Dioxide (21-32) mmol/L Anion Gap (3-11) BUN (7-18) mg/dl Creatinine (0.6-1.4) mg/dl Est Cr Clr Drug Dosing ml/min Est GFR ( Amer) Est GFR (Non-Af Amer) BUN/Creatinine Ratio (10-20) Glucose (70-99) mg/dl POC Glucose 114 H 116 H (70-99) mg/dl Calcium (8.5-10.1) mg/dl
--- NOTE | 2019-12-24 12:35 | Surgery Progress Note ---
Date of Service December 24, 2019 Assessment & Plan (1) Cholangitis: s/p ercp/ stent and now lap shanell. doing well from abdominal standpoint. OK to advance diet (regular ordered). Keep JARETH drain. Remainder of medical issues (v tach run last night) as per medicine. Subjective Denies complaints. Has tolerated full liquids. Wondering when he can get normal food. Had a run of v tach last night. Physical Exam Gastrointestinal (Abdomen): Inspection/Auscultation: abdomen normal to inspection and normal bowel sounds Percussion/Palpation: abdomen soft; abdomen nontender and no guarding incisions clean, JARETH minimal output serosanguinous Neurologic: moves all extremities; no focal motor deficits Psychiatric: Orientation: alert and oriented x 3 Results & Data Vital Signs (Past 12 Hours) Vital Signs Temp Pulse Pulse Resp BP Pulse Ox 12/24/19 08:00 64 12/24/19 07:30 36.8 C 66 20 117/64 93 12/24/19 07:08 67 16 94 12/24/19 02:31 36.7 C 64 17 105/62 95
[2019-12-24] MEDS: PANTOprazole 40 MG in SYRINGE 0 ML IV SCH (12:38)
[2019-12-24] MEDS: VANCOMYCIN HCL 1,500 MG in SODIUM CHLORIDE 0.9% 500 ML IV SCH (12:39)
--- NOTE | 2019-12-24 13:34 | Pharmacy Report ---
Pharmacy Abx Dose Short Note - Date of Service December 24, 2019 - Assessment & Plan Assessment Assessment * 79 year old M receiving vancomycin, cefepime and Flagyl for treatment of b/l LE cellulitis and cholecystitis with cholangitis. * Day #5 of antimicrobial therapy * SCr improved further today, 1.12 mg/dL, est CrCl 66.5 mL/min Plan Vancomycin * Trough obtained today was supratherapeutic at 23.8 mcg/mL, which is not much different than yesterday's trough despite renal function continuing to improve * 1200 dose of vancomycin currently infusing * Vancomycin will be placed on hold after this dose and a random level will be obtained tomorrow with AM labs Cefepime * Target dose for skin/skin structure and intra-abdominal: 2 gm IV q8-12 hours * Adjusted today for CrCl >60 ml/min Flagyl * Not dosed by pharmacy but appropriate at 500 mg IV q8h
[2019-12-24] MEDS: CEFEPIME 2,000 MG in SYRINGE 7.5 ML IV SCH (14:14)
[2019-12-25] MEDS: CEFEPIME 2,000 MG in SYRINGE 7.5 ML IV SCH ×2 (01:48→13:43)
[2019-12-25] MEDS: metroNIDAZOLE 500 MG/100 ML BAG IV SCH ×3 (04:08→19:53)
[2019-12-25 07:30] LABS: Albumin Level 2.6 gm/dl (3.4-5.0); BUN Creatinine Ratio 19.6 (10-20); Calcium 9.4 mg/dl (8.5-10.1); Creatinine Clr Calc Pharmacy 70.2 ml/min; Est GFR (African American) 78.1; Est GFR (Non-African American) 67.4; Potassium 4.1 mmol/L (3.5-5.1)
[2019-12-25 07:33] LABS: Albumin Globulin Ratio 0.7 (0.9-2); Bilirubin,Total 0.6 mg/dl (0.2-1); Globulin 3.6 gm/dl (2.5-4.0); Total Protein 6.2 gm/dl (6.4-8.2)
[2019-12-25] MEDS: PANTOprazole 40 MG TAB PO SCH (08:21)
[2019-12-25] MEDS: HEPARIN SOD 5,000 UNIT/0.5 ML VIAL SQ SCH ×2 (08:21→20:54)
[2019-12-25] MEDS: DOCUSATE SODIUM/SENNA 50/8.6MG TAB PO SCH ×2 (08:21→20:55)
[2019-12-25] MEDS: INSULIN ASPART 100 UNITS/ML 3 ML PEN SC SCH ×4 (08:23→20:44)
[2019-12-25] MEDS ORDERED: VANCOMYCIN HCL 1,500 MG in SODIUM CHLORIDE 0.9% 500 ML IV SCH ×2 (11:30→14:00)
--- NOTE | 2019-12-25 11:34 | Surgery Progress Note ---
Date of Service pt is doing better, no abdominal pain, no nausea, no vomiting, tolerated diet, December 25, 2019 Assessment & Plan (1) Cholangitis: s/p ercp/ stent and now lap shanell. doing well from abdominal standpoint. OK to advance diet (regular ordered). Keep JARETH drain. Remainder of medical issues as per medicine. will F/U Supervising Physician Co-Signing Physician Notes I saw and evaluated the patient. The patient presented with abdominal discomfort and was found to have evidence of choledocholithiasis imaging study last evening. Physical examination Mild distress Right upper quadrant tenderness noted Impression: Patient with symptomatic choledocholithiasis for ERCP and cholecystectomy today. We have discussed the risks and benefits of the procedure to include bleeding, infection, perforation, pancreatitis and need for follow-up studies Subjective Denies complaints. Has tolerated full liquids. Wondering when he can get normal food. Had a run of v tach last night. Physical Exam Constitutional: WD/WN, vitals as above well developed and well nourished Eyes: PERRL, conjunctivae normal, anicteric sclerae ENMT: external ear and nose normal, oropharynx normal Neck: trachea midline, no thyromegaly Respiratory: normal respiratory effort, lungs clear to auscultation Cardiovascular: RRR, no murmur, no edema Gastrointestinal (Abdomen): Percussion/Palpation: abdomen soft NT, ND, all incisions intact, no redness, no drainage Musculoskeletal: no cyanosis or clubbing, extremities motor strength 5/5 Skin: no rashes, warm and dry Neurologic: awake Psychiatric: Orientation: alert and oriented x 3 Results & Data Vital Signs (Past 12 Hours) Vital Signs Temp Pulse Pulse Resp BP Pulse Ox 12/25/19 11:22 36.5 C 68 19 131/75 96 12/25/19 08:00 71 12/25/19 07:13 36.5 C 66 17 135/70 95 12/25/19 03:36 36.7 C 68 18 129/79 98 12/24/19 23:39 37.0 C 69 17 128/69 94 Laboratory Results Abnormal lab results 12/25/19 Range/Units 06:30 Chloride 112 H (98-107) mmol/L BUN 21 H (7-18) mg/dl Total Protein 6.2 L (6.4-8.2) gm/dl Albumin 2.6 L (3.4-5.0) gm/dl Albumin/Globulin Ratio 0.7 L (0.9-2)
[2019-12-25] MEDS: HYDROCODONE/ACETAMOPHEN 5/325MG TAB PO PRN ×2 (13:51→20:58)
--- NOTE | 2019-12-25 15:35 | Pharmacy Report ---
Pharmacy Abx Dose Short Note - Date of Service December 25, 2019 - Assessment & Plan Assessment 79 year old M receiving Vancomycin for treatment of cellulitis, cholecystitis w/ cholangitis. Day #6 of antimicrobial therapy. Patient was receiving Vanc 1500 mg IV q24h. Trough and Random levels drawn close to 18 hrs after dose has been above 20 mcg/ml last the two checks. Laboratory Tests 12/24/19 12/25/19 11:45 06:30 Vancomycin Trough 23.8 Random Vancomycin 24.4 Plan Vancomycin * Random level of 24.4 mcg/mL is supra-therapeutic. * Vanc dosing reduced to 1500 mg IV q24h. * Goal trough level for SSTI: around 15 mcg/mL * Trough level ordered for: 12/27/19 before dose at 1400. Pharmacy will continue to follow and will adjust dose/frequency as necessary. Thank you.
--- NOTE | 2019-12-25 17:04 | Hospitalist Progress Note ---
Date of Service December 25, 2019 Assessment & Plan (1) Cholangitis: ERCP on 12/22/2019. Several CBD stones with visible purulent fluid. S/p pancreatic duct stent and CBD stent by Dr. Galvez. - Will need outpatient repeat ERCP to remove stents. - Needs 2-weeks of IV/PO abx to cover for cholangitis. (End date: 01/04/2020) (2) Acute cholecystitis: S/p lap shanell on 12/[address] Perez. Gross appearance of gall bladder during surgery suggestive of acute/chronic cholecystitis. - Continue abx as above - Follow up with surgery (3) Sepsis: Present on admission. 2nd to LLE cellulitis along with acute cholecystitis as well as cholangitis given the ERCP findings. - Continue abx as above (4) Cellulitis of left lower extremity: Mild-moderate. The friend feels that the ulceration on the LLE came from an incident outside at his home that involved a tractor and hauling some form of metal. Received TDaP vaccine here. - Improving per prior notes. - Continue abx - Wound care (5) Acute renal failure due to tubular necrosis: ATN is sepsis-associated. Baseline Cr is 1.2, up to 3.0 on admission. - Cr now back at baseline. - Hold IV fluids (6) Sacral decubitus ulcer, stage II: - Wound care consulted -> Conservative measures. (7) IDDM (insulin dependent diabetes mellitus): Per and friend/"son" he lost 100 pounds over the last year and no longer is taking ANY insulin at home. A1c was 7.2% this admission. c/w T2DM but diet controlled. - Sliding scale insulin (8) Paroxysmal atrial fibrillation: NSR since admission. Does not take anticoagulation per home med list. (9) Asthma: Not in exacerbation. - Cont bronchodilators (10) Hypertension: BP presently 130/70. - Holding all home anti-hypertensives due to low or low-normal BPs. (11) Chronic venous insufficiency: [facility] stasis ulcers & has seen Dr Benítez in the past for vascular studies as well. - Will restart gentle diuretic - Will need to continue Wound Care as outpatient. (12) Severe protein-calorie malnutrition: at least 40kg weight loss from 04/2019 to present poor appetite due to chronic gall bladder issues? occult malignancy? other? after this admission would recommend additional work-up for such (13) DVT prophylaxis: Has IVC filter, but also on heparin 5000 units Q12h. Admission and Anticipated Discharge Date Admission Date: December 20, 2019 Subjective Notes his legs are "no better" than when he came in and feels there is swelling in the left leg. Reports no fevers/chills, chest pain, shortness of breath, abdominal pain, nausea, or vomiting. Physical Exam Constitutional: WD/WN, vitals as above Eyes: EOM intact bilaterally; no conjunctival abnormality ENMT: external ear and nose normal, oropharynx normal Neck: trachea midline, no thyromegaly normal visual inspection Respiratory: normal respiratory effort, lungs clear to auscultation no respiratory distress Cardiovascular: RRR, no murmur, no edema Gastrointestinal (Abdomen): Inspection/Auscultation: abdomen normal to inspection; abdomen not distended Musculoskeletal: no cyanosis or clubbing, extremities motor strength 5/5 Skin: + ulcer (Several shallow ulcers with venous stasis changes.) Neurologic: moves all extremities and awake Psychiatric: Orientation: alert, oriented to person and cooperative Results & Data Results & Data ([facility]) Vital Signs (Past 12 Hours) Vital Signs Temp Pulse Pulse Resp BP Pulse Ox 12/25/19 16:00 75 12/25/19 15:55 36.4 C L 70 16 128/73 95 12/25/19 11:22 36.5 C 68 19 131/75 96 12/25/19 08:00 71 12/25/19 07:13 36.5 C 66 17 135/70 95 PG Care Time/CCT Total # of Minutes Spent Total Time Spent with Patient: Total time spent is greater than 50% in coordination of care (as documented) at patient's floor/unit and/or counseling patient: Coding Level of Care Code 30668 Subseq Hosp Care Lvl 3 Diagnoses Cholangitis K83.09 Acute cholecystitis K81.0 Sepsis A41.9; R65.20; N17.0 Sepsis type: sepsis due to unspecified organism Sepsis acute organ dysfunction status: with acute organ dysfunction Severe sepsis acute organ dysfunction type: acute renal failure Acute renal failure type: with acute tubular necrosis Severe sepsis shock status: unspecified Cellulitis of left lower extremity L03.116 Acute renal failure due to tubular necrosis N17.0 Sacral decubitus ulcer, stage II L89.152 IDDM (insulin dependent diabetes mellitus) E11.9; Z79.4 Paroxysmal atrial fibrillation I48.0 Asthma J45.909 Hypertension I10 Chronic venous insufficiency I87.2 Severe protein-calorie malnutrition E43 DVT prophylaxis Z29.9 (1) Sepsis Sepsis type: sepsis due to unspecified organism Sepsis acute organ dysfunction status: with acute organ dysfunction Severe sepsis acute organ dysfunction type: acute renal failure Acute renal failure type: with acute tubular necrosis Severe sepsis shock status: unspecified Qualified Code(s): A41.9 - Sepsis, unspecified organism; R65.20 - Severe sepsis without septic shock; N17.0 - Acute kidney failure with tubular necrosis
--- NOTE | 2019-12-25 19:21 | Ultrasound Report ---
US venous doppler LE CLINICAL HISTORY: 79 years-old Male presenting with bilateral leg edema and calf pain, history of rig ht leg venous ablation, Concern for DVT. TECHNIQUE: Real-time grayscale and color and spectral Doppler ultrasound imaging of the veins of the bilateral lower extremities was performed. Compression and augmentation were also utilized. COMPARISON: 12/20/2014. FINDINGS: RIGHT: Common femoral vein: Nonocclusive filling defect consistent with thrombus. Greater saphenous vein (superficial): Nonocclusive thrombus. Reversal of flow noted. Deep femoral vein: Intermittent flow. Femoral vein: Nonocclusive thrombus. Popliteal vein: Nonocclusive thrombus. Calf veins: Limited visualization though grossly patent. LEFT: Common femoral vein: Nonocclusive filling defect consistent with thrombus. Greater saphenous vein (superficial): Nonocclusive thrombus. Deep femoral vein: Patent in one of 2 duplicated veins. Femoral vein: Nonocclusive thrombus. Popliteal vein: Occlusive thrombus. Calf veins: Intermittent flow within the posterior tibial vein. Flow within one of 2 duplicated peron eal veins. Other: None. IMPRESSION: 1. Extensive largely nonocclusive deep venous thrombosis in the bilateral lower extremities extendin g from the common femoral veins to the popliteal veins. Some occlusive thrombus is evident in the lef t popliteal vein. Findings may be acute on chronic. The report will be called/faxed according to standard departmental protocol. ACT 112: Negative or not required by law. Electronically signed by: Alexis Diehl M.D. 12/25/2019 7:19 PM
[2019-12-26] MEDS: CEFEPIME 2,000 MG in SYRINGE 7.5 ML IV SCH (01:01)
[2019-12-26] MEDS: metroNIDAZOLE 500 MG/100 ML BAG IV SCH (04:00)
[2019-12-26 06:49] LABS: Hemoglobin 12.4 g/dL (14.0-18.0); Mean Corpuscular Hemoglobin 29.8 pg (25-34); Mean Corpuscular Hgb Conc 31.8 g/dL (32-36); Mean Corpuscular Volume 93.8 fL (80-100); Platelet Count 203 K/uL (130-400); RDW Coefficient of Variation 16.5 % (11.5-14.5); RDW Standard Deviation 56.9 fL (36.4-46.3); Red Blood Count 4.16 M/uL (4.7-6.1); White Blood Count 6.08 K/uL (4.8-10.8)
[2019-12-26 07:25] LABS: Albumin Level 2.5 gm/dl (3.4-5.0); Creatinine Clr Calc Pharmacy 73.9 ml/min; Est GFR (African American) 79.9; Est GFR (Non-African American) 68.9; Magnesium 2.3 mg/dl (1.8-2.4)
[2019-12-26 07:28] LABS: Albumin Globulin Ratio 0.7 (0.9-2); Bilirubin,Total 0.5 mg/dl (0.2-1); Globulin 3.4 gm/dl (2.5-4.0); Total Protein 5.9 gm/dl (6.4-8.2)
--- NOTE | 2019-12-26 07:55 | Surgery Progress Note ---
Date of Service December 26, 2019 Assessment & Plan (1) S/P laparoscopic cholecystectomy: Also duplex shows extensive DVT- has filter- some acute stable from lap shanell- leave drain for now If anticoagulation needed- favor other meds over high dose Lovenox which I feel would have highest risk of bleeding may consider discussing with coag clinic/ ?Heme can d/c when med stable from surgical standpt- will cont to follow in hosp Results & Data Vital Signs (Past 12 Hours) Vital Signs Temp Pulse Pulse Resp BP Pulse Ox 12/26/19 07:41 64 12/26/19 04:38 36.4 C L 64 16 135/77 95 12/25/19 23:33 36.7 C 64 17 121/70 94 PG Care Time/CCT Total # of Minutes Spent Total Time Spent with Patient: Total time spent is greater than 50% in coordination of care (as documented) at patient's floor/unit and/or counseling patient: Coding Level of Care Code None Diagnoses S/P laparoscopic cholecystectomy Z90.49
[2019-12-26] MEDS: DOCUSATE SODIUM/SENNA 50/8.6MG TAB PO SCH ×2 (08:19→21:03)
[2019-12-26] MEDS: HEPARIN SOD 5,000 UNIT/0.5 ML VIAL SQ SCH ×2 (08:19→21:03)
[2019-12-26] MEDS: PANTOprazole 40 MG TAB PO SCH (08:20)
[2019-12-26] MEDS: FUROSEMIDE 40 MG TAB PO SCH (08:20)
[2019-12-26] MEDS: INSULIN ASPART 100 UNITS/ML 3 ML PEN SC SCH ×4 (08:21→21:04)
[2019-12-26] MEDS: CIPROFLOXACIN 500 MG TAB PO SCH ×2 (11:11→21:02)
[2019-12-26] MEDS: metroNIDAZOLE 500 MG TAB PO SCH ×2 (13:58→21:01)
--- NOTE | 2019-12-26 14:54 | Hospitalist Progress Note ---
Date of Service December 26, 2019 Assessment & Plan (1) Deep vein thrombosis: Doppler on 12/24 showed likely acute on chronic DVT with mostly non- occlusive, but some areas of complete occlusion. This explains his ongoing leg swelling. - Discussed with Dr. Benítez who feels he may benefit from tertiary care -> Will evaluate today. - Hold anticoagulation for now given he has an IVC filter in place. (2) Cellulitis of left lower extremity: Mild-moderate. The friend feels that the ulceration on the LLE came from an incident outside at his home that involved a tractor and hauling some form of metal. Received TDaP vaccine here. - Switched his abx to PO -> On Cipro/Flagyl for GI issues; this should cover possible infection. At this point, doesn't look acutely infected and is more chronic looking. - Wound care (3) Cholangitis: ERCP on 12/22/2019. Several CBD stones with visible purulent fluid. S/p pancreatic duct stent and CBD stent by Dr. Galvez. - Will need outpatient repeat ERCP to remove stents. - Needs 2-weeks of IV/PO abx to cover for cholangitis. (End date: 01/04/2020) (4) Acute cholecystitis: S/p lap shanell on 12/[address] Perez. Gross appearance of gall bladder during surgery suggestive of acute/chronic cholecystitis. - Continue abx as above - Follow up with surgery (5) Sepsis: Present on admission. 2nd to LLE cellulitis along with acute cholecystitis as well as cholangitis given the ERCP findings. - Continue abx as above (6) Acute renal failure due to tubular necrosis: ATN is sepsis-associated. Baseline Cr is 1.2, up to 3.0 on admission. - Cr now back at baseline. - Hold IV fluids (7) Sacral decubitus ulcer, stage II: - Wound care consulted -> Conservative measures. (8) IDDM (insulin dependent diabetes mellitus): Per and friend/"son" he lost 100 pounds over the last year and no longer is taking ANY insulin at home. A1c was 7.2% this admission. c/w T2DM but diet controlled. - Sliding scale insulin (9) Paroxysmal atrial fibrillation: NSR since admission. Does not take anticoagulation per home med list. (10) Asthma: Not in exacerbation. - Cont bronchodilators (11) Hypertension: BP presently 130/70. - Holding all home anti-hypertensives due to low or low-normal BPs. (12) Chronic venous insufficiency: [facility] for chronic venous stasis ulcers & has seen Dr. Benítez in the past for vascular studies as well. - Will restart gentle diuretic - Will need to continue Wound Care as outpatient. (13) Severe protein-calorie malnutrition: At least 40kg weight loss from 04/2019 to present, though it is intentional per friend, Zenon. (14) DVT prophylaxis: Has IVC filter, but also on heparin 5000 units Q12h. - Discussing with Dr. Benítez as above Admission and Anticipated Discharge Date Admission Date: December 20, 2019 Subjective Still with leg swelling. Not in much pain at present. Overall frustrated with the lack of progress. Reports no fevers/chills, chest pain, shortness of breath, abdominal pain, nausea, or vomiting. Physical Exam Constitutional: WD/WN, vitals as above Eyes: EOM intact bilaterally; no conjunctival abnormality ENMT: external ear and nose normal, oropharynx normal Neck: trachea midline, no thyromegaly normal visual inspection Respiratory: normal respiratory effort, lungs clear to auscultation no respiratory distress Cardiovascular: RRR, no murmur, no edema Gastrointestinal (Abdomen): Inspection/Auscultation: abdomen normal to inspection; abdomen not distended Musculoskeletal: no cyanosis or clubbing, extremities motor strength 5/5 Skin: + ulcer (Several shallow ulcers with venous stasis changes.) Neurologic: moves all extremities and awake Psychiatric: Orientation: alert, oriented to person and cooperative Results & Data Results & Data ([facility]) Vital Signs (Past 12 Hours) Vital Signs Temp Pulse Pulse Pulse Resp BP Pulse Ox 12/26/19 14:48 78 12/26/19 11:45 36.4 C L 63 19 122/75 96 12/26/19 08:04 36.5 C 69 19 144/78 H 96 12/26/19 07:41 64 12/26/19 04:38 36.4 C L 64 16 135/77 95 PG Care Time/CCT Total # of Minutes Spent Total Time Spent with Patient: Total time spent is greater than 50% in coordination of care (as documented) at patient's floor/unit and/or counseling patient: Coding Level of Care Code 31445 Subseq Hosp Care Lvl 3 Diagnoses Deep vein thrombosis I82.409 Cellulitis of left lower extremity L03.116 Cholangitis K83.09 Acute cholecystitis K81.0 Sepsis A41.9; R65.20; N17.0 Sepsis type: sepsis due to unspecified organism Sepsis acute organ dysfunction status: with acute organ dysfunction Severe sepsis acute organ dysfunction type: acute renal failure Acute renal failure type: with acute tubular necrosis Severe sepsis shock status: unspecified Acute renal failure due to tubular necrosis N17.0 Sacral decubitus ulcer, stage II L89.152 IDDM (insulin dependent diabetes mellitus) E11.9; Z79.4 Paroxysmal atrial fibrillation I48.0 Asthma J45.909 Hypertension I10 Chronic venous insufficiency I87.2 Severe protein-calorie malnutrition E43 DVT prophylaxis Z29.9 (1) Sepsis Sepsis type: sepsis due to unspecified organism Sepsis acute organ dysfunction status: with acute organ dysfunction Severe sepsis acute organ dysfunction type: acute renal failure Acute renal failure type: with acute tubular necrosis Severe sepsis shock status: unspecified Qualified Code(s): A41.9 - Sepsis, unspecified organism; R65.20 - Severe sepsis without septic shock; N17.0 - Acute kidney failure with tubular necrosis
--- NOTE | 2019-12-26 20:20 | Vascular Medicine Consultation ---
Date of Consultation December 26, 2019 Assessment & Plan (1) Venous stasis ulcers of both lower extremities: Bilateral lower extremity cellulitis 2. 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 Chronic diastolic heart failure 5. Choledocholithiasis with cholangitis post ERCP/cholecystectomy 6. Resolved CYNDI 7. Insulin-dependent diabetes Patient with acute worsening of longstanding lower extremity swelling in the se tting of complex venous disease. In 06/2019 previously documented to have at least left iliac/common femoral vein occlusion with signs of bilateral proximal obstruction and presumed IVC filter thrombosis. At that time was referred to a tertiary center for consideration of endovascular intervention but per patient was deemed not to be a candidate for procedure. Still without any intervention did have significant improvement in lower extremity swelling with intentional weight loss, sodium restriction and maintenance diuretics. Since admission for sepsis weight is up 7 kg and positive more than 7 L. Diuretics initially held in the setting of CYNDI. Renal function now back to baseline. Reviewed current venous duplex and prior study from 04/2019. Has definite increase in thrombus burden throughout femoral veins bilaterally. Would recommend anticoagulation long-term but in the short-term with thrombosed IVC filter/chronic obstruction feel risks of PE is relatively low and can defer starting anticoagulation until safe from an abdominal surgical standpoint. Recommendations: Resume home Lasix 40 mg twice daily and would resume every other day metolazone Daily weights and sodium restriction Start anticoagulation when safe from a surgical standpoint. Previously resistant to taking warfarin. No apparent contraindication to DOAC Resume compressive therapy with stockings, home sequential compression device. Ambulate as able No need for any acute, inpatient vascular intervention. --Will obtain records from prior vascular surgery outpatient consultation at [facility]. --As an outpatient endovascular intervention may need to be reconsidered at a tertiary center. With extent of chronic occlusion, comorbidities risk of procedure may be prohibitive. We will continue to follow. History of Present Illness Attending Physician: Darrius Castillo MD History of Present Illness Mr. Munoz is a pleasant 79-year-old man with a complex past medical history known to me from prior outpatient vascular care. He is followed by Dr. Usman Stanley along with Dr. Huang for his nonobstructive coronary artery disease and atrial fibrillation. Other medical issues include severe COPD, obesity, dementia, insulin-dependent diabetes, hypertension, dyslipidemia, and paroxysmal atrial fibrillation. Patient admitted on 12/20/2019 in setting of confusion, worsening LE edema and sepsis with CYNDI found to have choledocholithiasis with possible acute cholangitis post ERCP and laparoscopic cholecystectomy. Treated with broad- spectrum antibiotics. Venous duplex obtained yesterday in the setting of persistent lower extremity swelling/pain. Revealed extensive nonocclusive bilateral thrombus from common femoral to popliteal veins. Patient previously seen by me at the wound clinic for recurrent slow healing lower extremity venous ulcerations. Has a history of bilateral DVT with Campos filter placed to IVC in 2014 in the setting of anticoagulation refusal. Has had longstanding bilateral lower extremity edema, skin discoloration recurrent ulcerations. Ulcers previously slow to heal despite compression therapy, lymphedema PT and diuretics. Patient underwent successful right GSV RFA on 04/21/2017. Arterial duplex 04/2019 showed normal TBI's (right 0.7, left 0.89) and bilateral nonobstructive disease. Venous duplex showed superficial reflux (right GSV remnant dilated with reflux, Left GSV dilated with reflux greater than 2.8 seconds), mild nonobstructive residual DVT in bilateral CFVs and continuous monophasic flow concerning for proximal obstruction. In June 2019 LLE venogram confirmed femoral/iliac vein occlusion and superficial venous ablation deferred. Patient referred to [facility] vascular surgery for consideration of recannalization procedure. Allergies Allergy/AdvReac Type Severity Reaction Status Date / Time Penicillins Allergy Unknown RASH Verified 08/07/19 13:44 Home Medications Home Medications Medication Instructions Recorded Confirmed Type aspirin 81 mg tablet,delayed 81 mg PO DAILY 07/20/18 12/20/19 History release diltiazem HCl 240 mg capsule,24 240 mg PO DAILY 07/20/18 12/20/19 History hr,extended release furosemide 40 mg tablet 80 mg PO BID tab 07/20/18 12/20/19 History gabapentin 300 mg capsule 300 mg PO TID 07/20/18 12/20/19 History labetalol 300 mg tablet 300 mg PO BID 07/20/18 12/20/19 History potassium chloride 10 mEq 10 meq PO DAILY 07/20/18 12/20/19 History tablet,extended release simvastatin 40 mg tablet 40 mg PO QPM 07/20/18 12/20/19 History spironolactone 25 mg tablet 25 mg PO DAILY 03/15/19 12/20/19 History acetaminophen [Tylenol Extra 1,500 mg PO Q6H PRN 04/21/19 12/20/19 History Strength] Novolin 70/30 U-100 Insulin 25 units SQ BID #0 ml 04/23/19 12/20/19 Rx albuterol sulfate 90 mcg/actuation 2 puffs INHALATION Q4H PRN #1 gm 05/08/19 12/20/19 History aerosol inhaler metoprolol tartrate 100 mg tablet 100 mg PO BID tab 05/08/19 12/20/19 History nitroglycerin 0.6 mg sublingual 0.6 mg SL PRN PRN tab 05/08/19 12/20/19 History tablet ipratropium-albuterol 3 ml INHALATION QID 12/20/19 12/20/19 History metolazone 2.5 mg PO Q2D 12/20/19 12/20/19 History hydrocodone-acetaminophen [Landrum] 1 - 2 tab PO .q4-6h PRN #15 tab 12/22/19 Rx Patient History Medical History (Updated 12/25/19 @ 17:19 by Darrius Castillo MD) Arthritis (Chronic) Cardiac dysrhythmia (Acute) CHF (congestive heart failure) (Resolved) Chronic venous insufficiency (Chronic) COPD (chronic obstructive pulmonary disease) (Chronic) Deep vein thrombosis (Acute) Diabetes (Chronic) Edema (Acute) H/O: pneumothorax (Chronic) Hyperlipidemia (Chronic) Hypertension (Chronic) Hypertension associated with diabetes (Chronic 09/19/13) Hypomagnesemia (Acute) Hypoxia (Acute) IDDM (insulin dependent diabetes mellitus) (Chronic 09/19/13) New onset atrial fibrillation (Acute) Obesity (Chronic 09/19/13) Other specified cardiac arrhythmias (Chronic) Paroxysmal atrial fibrillation Pleural effusion, left (Acute) SOB (shortness of breath) (Acute) 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 Dr. Perez Family History Other Diabetes Heart disease Hypertension Social History Preferred Language: [place] Communication Ability: Effective Visual Impairment: No Limitations Hearing Ability: Normal Air Quality Technician Required: No Beliefs That Will Affect Care: None marital status: Current Living Situation: Spouse current occupational status: retired Feels Safe at Home: Yes Smoking Status: Former smoker Hx Alcohol Use: No Hx Substance Use: No Review of Systems Review of Systems: 10 point review of systems was completed and was otherwise negative unless stated in HPI Physical Exam Physical Exam: General: Frail but comfortable, no acute distress Eyes: Sclerae anicteric, extraocular movements intact HENT: Oropharynx clear mucous membranes moist Neck: Normal carotid upstrokes, no bruits. JVP approximately 8 Lungs: Clear to auscultation bilaterally, no rhonchi or wheezes Cardiac: Irregular irregular, no murmurs Abdomen: Soft, obese, surgical sites clean, intact without surrounding erythema Psych: Alert orient, repeats same questions Extremities/Vascular: -- 2+ radial bilaterally --1+ DP/PT pulses bilaterally --2+ bilateral lower extremity edema to knees --Bilateral hyperpigmentation of shins Superficial ulcerations dressed bilaterally Results & Data Vital Signs (Past 12 Hours) Vital Signs Temp Pulse Pulse Resp BP Pulse Ox 12/26/19 15:47 97.9 F 101 H 18 138/83 95 12/26/19 14:48 78 12/26/19 11:45 97.5 F L 63 19 122/75 96 PG Care Time/CCT Total # of Minutes Spent Total Time Spent with Patient: Total time spent is greater than 50% in coordination of care (as documented) at patient's floor/unit and/or counseling patient: Coding Level of Care Code 28233 Initial Inpt Care Lvl 3 Diagnoses Venous stasis ulcers of both lower extremities I83.019; I83.029; L97.919; L97.925
[2019-12-27] MEDS: HYDROCODONE/ACETAMOPHEN 5/325MG TAB PO PRN (03:32)
--- NOTE | 2019-12-27 06:30 | Surgery Progress Note ---
Date of Service December 27, 2019 Assessment & Plan (1) S/P laparoscopic cholecystectomy: No acute changes Vital signs are stable Drainage is serous We will have JARETH drain removed later this morning Anticoagulation per medical team-would rather not have patient on Lovenox/Coumadin Because of increased risk of bleeding Consider other anticoagulation if felt needed Discharge home when medically stable We will follow-up in the office Results & Data Vital Signs (Past 12 Hours) Vital Signs Temp Pulse Resp BP BP Pulse Ox 12/27/19 04:30 36.5 C 69 19 135/80 95 12/26/19 23:04 36.9 C 77 18 134/75 95 12/26/19 20:23 36.3 C L 77 18 150/76 H 95 PG Care Time/CCT Total # of Minutes Spent Total Time Spent with Patient: Total time spent is greater than 50% in coordination of care (as documented) at patient's floor/unit and/or counseling patient: Coding Level of Care Code None Diagnoses S/P laparoscopic cholecystectomy Z90.49
[2019-12-27 07:01] LABS: Hemoglobin 12.8 g/dL (14.0-18.0); Mean Corpuscular Volume 93.7 fL (80-100); Mean Platelet Volume 10.7 fL (7.4-10.4); Platelet Count 217 K/uL (130-400); RDW Coefficient of Variation 16.6 % (11.5-14.5); RDW Standard Deviation 56.7 fL (36.4-46.3); Red Blood Count 4.27 M/uL (4.7-6.1); White Blood Count 5.75 K/uL (4.8-10.8)
[2019-12-27 07:27] LABS: Albumin Level 2.6 gm/dl (3.4-5.0); BUN Creatinine Ratio 15.3 (10-20); Calcium 9.3 mg/dl (8.5-10.1); Creatinine Clr Calc Pharmacy 72.2 ml/min; Est GFR (African American) 78.1; Est GFR (Non-African American) 67.4; Potassium 3.8 mmol/L (3.5-5.1)
[2019-12-27 07:30] LABS: Albumin Globulin Ratio 0.7 (0.9-2); Bilirubin,Total 0.5 mg/dl (0.2-1); Globulin 3.6 gm/dl (2.5-4.0); Total Protein 6.2 gm/dl (6.4-8.2)
[2019-12-27] MEDS: INSULIN ASPART 100 UNITS/ML 3 ML PEN SC SCH ×4 (08:22→21:10)
[2019-12-27] MEDS: PANTOprazole 40 MG TAB PO SCH (09:37)
[2019-12-27] MEDS: FUROSEMIDE 40 MG TAB PO SCH (09:37)
[2019-12-27] MEDS: DOCUSATE SODIUM/SENNA 50/8.6MG TAB PO SCH ×2 (09:37→21:10)
[2019-12-27] MEDS: metroNIDAZOLE 500 MG TAB PO SCH ×3 (09:37→21:10)
[2019-12-27] MEDS: CIPROFLOXACIN 500 MG TAB PO SCH ×2 (09:37→21:10)
[2019-12-27] MEDS: HEPARIN SOD 5,000 UNIT/0.5 ML VIAL SQ SCH ×2 (09:38→21:10)
[2019-12-27] MEDS ORDERED: VANCOMYCIN TROUGH ONE (13:30)
--- NOTE | 2019-12-27 14:44 | Hospitalist Progress Note ---
Date of Service December 27, 2019 Assessment & Plan (1) Deep vein thrombosis: Doppler on 12/24 showed likely acute on chronic DVT with mostly non- occlusive, but some areas of complete occlusion. This explains his ongoing leg swelling. - Consulted Dr. Benítez who had participated in his vascular evaluation previously. - Will restart home furosemide and metolazone, start anticoagulation, and use compression as able. (2) Cellulitis of left lower extremity: Mild-moderate. The friend feels that the ulceration on the LLE came from an incident outside at his home that involved a tractor and hauling some form of metal. Received TDaP vaccine here. - Switched his abx to PO -> On Cipro/Flagyl for GI issues; this should cover possible infection. At this point, doesn't look acutely infected and is more chronic looking. - Wound care (3) Cholangitis: ERCP on 12/22/2019. Several CBD stones with visible purulent fluid. S/p pancreatic duct stent and CBD stent by Dr. Galvez. - Will need outpatient repeat ERCP to remove stents. - Needs 2-weeks of IV/PO abx to cover for cholangitis. (End date: 01/04/2020) (4) Acute cholecystitis: S/p lap shanell on 12/[address] Perez. Gross appearance of gall bladder during surgery suggestive of acute/chronic cholecystitis. - Continue abx as above - Follow up with surgery (5) Sepsis: Present on admission. 2nd to LLE cellulitis along with acute cholecystitis as well as cholangitis given the ERCP findings. - Continue abx as above (6) Acute renal failure due to tubular necrosis: ATN is sepsis-associated. Baseline Cr is 1.2, up to 3.0 on admission. - Cr now back at baseline. (7) Sacral decubitus ulcer, stage II: - Wound care consulted -> Conservative measures. (8) IDDM (insulin dependent diabetes mellitus): Per and friend/"son" he lost 100 pounds over the last year and no longer is taking ANY insulin at home. A1c was 7.2% this admission. c/w T2DM but diet controlled. - Sliding scale insulin (9) Paroxysmal atrial fibrillation: NSR since admission. (10) Asthma: Not in exacerbation. - Cont bronchodilators (11) Hypertension: BP presently 130/80. - Holding all home anti-hypertensives due to low or low-normal BPs. (12) Chronic venous insufficiency: [facility] venous stasis ulcers & has seen Dr. Benítez in the past for vascular studies as well. - Will restart diuretic - Will need to continue Wound Care as outpatient. (13) Severe protein-calorie malnutrition: At least 40kg weight loss from 04/2019 to present, though it is intentional per friend, Zenon. (14) DVT prophylaxis: Eliquis - Discussed with Dr. Benítez as above Admission and Anticipated Discharge Date Admission Date: December 20, 2019 Subjective Doing similarly today. He has not seen a big change in the swelling in his legs. Reports no fevers/chills, chest pain, shortness of breath, abdominal pain, nausea, or vomiting. Physical Exam Constitutional: WD/WN, vitals as above Eyes: EOM intact bilaterally; no conjunctival abnormality ENMT: external ear and nose normal, oropharynx normal Neck: trachea midline, no thyromegaly normal visual inspection Respiratory: normal respiratory effort, lungs clear to auscultation no respiratory distress Cardiovascular: RRR, no murmur, no edema Gastrointestinal (Abdomen): Inspection/Auscultation: abdomen normal to inspection; abdomen not distended Musculoskeletal: no cyanosis or clubbing, extremities motor strength 5/5 Skin: + ulcer (Several shallow ulcers with venous stasis changes.) Neurologic: moves all extremities and awake Psychiatric: Orientation: alert, oriented to person and cooperative Results & Data Results & Data ([facility]) Vital Signs (Past 12 Hours) Vital Signs Temp Pulse Pulse Resp BP BP Pulse Ox 12/27/19 11:55 36.6 C 71 20 130/78 95 12/27/19 07:55 69 12/27/19 04:30 36.5 C 69 19 135/80 95 PG Care Time/CCT Total # of Minutes Spent Total Time Spent with Patient: Total time spent is greater than 50% in coordination of care (as documented) at patient's floor/unit and/or counseling patient: Coding Level of Care Code 03462 Subseq Hosp Care Lvl 3 Diagnoses Deep vein thrombosis I82.409 Cellulitis of left lower extremity L03.116 Cholangitis K83.09 Acute cholecystitis K81.0 Sepsis A41.9; R65.20; N17.0 Sepsis type: sepsis due to unspecified organism Sepsis acute organ dysfunction status: with acute organ dysfunction Severe sepsis acute organ dysfunction type: acute renal failure Acute renal failure type: with acute tubular necrosis Severe sepsis shock status: unspecified Acute renal failure due to tubular necrosis N17.0 Sacral decubitus ulcer, stage II L89.152 IDDM (insulin dependent diabetes mellitus) E11.9; Z79.4 Paroxysmal atrial fibrillation I48.0 Asthma J45.909 Hypertension I10 Chronic venous insufficiency I87.2 Severe protein-calorie malnutrition E43 DVT prophylaxis Z29.9 (1) Sepsis Sepsis type: sepsis due to unspecified organism Sepsis acute organ dysfunction status: with acute organ dysfunction Severe sepsis acute organ dysfunction type: acute renal failure Acute renal failure type: with acute tubular necrosis Severe sepsis shock status: unspecified Qualified Code(s): A41.9 - Sepsis, unspecified organism; R65.20 - Severe sepsis without septic shock; N17.0 - Acute kidney failure with tubular necrosis
[2019-12-27] MEDS: FUROSEMIDE 80 MG TAB PO SCH (17:09)
[2019-12-27] MEDS: APIXABAN 2.5 MG TAB PO SCH (21:10)
[2019-12-28 07:02] LABS: Hematocrit (blood only) 40.9 % (42-52); Hemoglobin 12.8 g/dL (14.0-18.0); Mean Corpuscular Hemoglobin 29.2 pg (25-34); Mean Corpuscular Hgb Conc 31.3 g/dL (32-36); Mean Corpuscular Volume 93.2 fL (80-100); Platelet Count 215 K/uL (130-400); RDW Coefficient of Variation 16.6 % (11.5-14.5); RDW Standard Deviation 56.4 fL (36.4-46.3); Red Blood Count 4.39 M/uL (4.7-6.1)
[2019-12-28 07:31] LABS: BUN Creatinine Ratio 14.2 (10-20); Calcium 9.3 mg/dl (8.5-10.1); Creatinine Clr Calc Pharmacy 66.1 ml/min; Est GFR (African American) 70.7; Magnesium 1.9 mg/dl (1.8-2.4); Potassium 3.8 mmol/L (3.5-5.1)
[2019-12-28] MEDS: APIXABAN 2.5 MG TAB PO SCH ×2 (08:05→20:25)
[2019-12-28] MEDS: PANTOprazole 40 MG TAB PO SCH (08:06)
[2019-12-28] MEDS: CIPROFLOXACIN 500 MG TAB PO SCH ×2 (08:06→20:25)
[2019-12-28] MEDS: FUROSEMIDE 80 MG TAB PO SCH ×2 (08:06→17:43)
[2019-12-28] MEDS: metOLazone 2.5 MG TABLET PO SCH (08:06)
[2019-12-28] MEDS: metroNIDAZOLE 500 MG TAB PO SCH ×3 (08:06→20:25)
[2019-12-28] MEDS: INSULIN ASPART 100 UNITS/ML 3 ML PEN SC SCH ×4 (08:08→21:06)
[2019-12-28] MEDS: DOCUSATE SODIUM/SENNA 50/8.6MG TAB PO SCH ×2 (08:10→20:27)
--- NOTE | 2019-12-28 09:03 | Vascular Medicine ProgressNote ---
Date of Service December 28, 2019 Assessment & Plan (1) Venous stasis ulcers of both lower extremities: Bilateral lower extremity cellulitis 2. 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 Acute on chronic diastolic heart failure 5. Choledocholithiasis with cholangitis post ERCP/cholecystectomy 6. Resolved CYNDI 7. Insulin-dependent diabetes Diuresing well on PO diuretics. Lasix now 80mg BID, daily metalazone. Persistent LE edema unchanged. Renal function stable Started on Eliquis -- Continue current diuretics with strict i/o's, daily weights and labs -- Continued wound care and compressive therapy as able -- Continue anticoagulation -- No plans for inpatient vascular procedures. Can reconsider proximal deep vein obstruction endovascular intervention as an outpatient. -- On current diuretics will need close follow-up with Dr. Huang on discharge Subjective Feeling well. No abdominal pain. Tolerating current diet. Negative 0 yesterday. Down 1.5 kg. Leg pain stable. Tele reviewed -- no events. Review of Systems Review of Systems: All systems reviewed & are unremarkable except as noted in HPI & below Physical Exam Physical Exam: General: Comfortable, no acute distress Eyes: Sclerae anicteric Neck: JVP ~7-8 Lungs: Clear to auscultation bilaterally Cardiac: Bradycardic, irregularly irregular versus frequent ectopy Abdomen: Soft, minimal tenderness. Drain removed Psych: Alert orient x3, normal affect and mood Extremities/Vascular: -- unchanged LE edema 2++ on right > left. Hyperpigmentation. Ulcers dressed. No surrounding erythema. Results & Data Vital Signs (Past 12 Hours) Vital Signs Temp Pulse Resp BP BP Pulse Ox 12/28/19 07:50 98.1 F 69 18 133/79 95 12/28/19 03:53 97.7 F 68 17 123/72 96 12/28/19 00:24 98.2 F 70 16 132/74 97 PG Care Time/CCT Total # of Minutes Spent Total Time Spent with Patient: Total time spent is greater than 50% in coordination of care (as documented) at patient's floor/unit and/or counseling patient: Coding Level of Care Code 18340 Subseq Hosp Care Lvl 3 Diagnoses Venous stasis ulcers of both lower extremities I83.019; I83.029; L97.919; L97.92
--- NOTE | 2019-12-28 16:43 | Hospitalist Progress Note ---
Date of Service December 28, 2019 Assessment & Plan (1) Deep vein thrombosis: Doppler on 12/24 showed likely acute on chronic DVT with mostly non- occlusive, but some areas of complete occlusion. This explains his ongoing leg swelling. - Consulted Dr. Benítez who had participated in his vascular evaluation previously. - Will restart home furosemide and metolazone, started apixaban - Add JAMESON hose today. Encourage getting out of bed. (2) Cellulitis of left lower extremity: Mild-moderate. The friend feels that the ulceration on the LLE came from an incident outside at his home that involved a tractor and hauling some form of metal. Received TDaP vaccine here. - Switched his abx to PO -> On Cipro/Flagyl for GI issues; this should cover possible infection. At this point, doesn't look acutely infected and is more chronic looking. - Wound care (3) Cholangitis: ERCP on 12/22/2019. Several CBD stones with visible purulent fluid. S/p pancreatic duct stent and CBD stent by Dr. Galvez. - Will need outpatient repeat ERCP to remove stents. - Needs 2-weeks of abx to cover for cholangitis. (End date: 01/04/2020) (4) Acute cholecystitis: S/p lap shanell on 12/[address] Perez. Gross appearance of gall bladder during surgery suggestive of acute/chronic cholecystitis. - Continue abx as above - Follow up with surgery (5) Sepsis: Present on admission. 2nd to LLE cellulitis along with acute cholecystitis as well as cholangitis given the ERCP findings. - Continue abx as above (6) Acute renal failure due to tubular necrosis: ATN is sepsis-associated. Baseline Cr is 1.2, up to 3.0 on admission. - Cr now back at baseline. (7) Sacral decubitus ulcer, stage II: - Wound care consulted -> Conservative measures. (8) IDDM (insulin dependent diabetes mellitus): Per and friend/"son" he lost 100 pounds over the last year and no longer is taking ANY insulin at home. A1c was 7.2% this admission. c/w T2DM but diet controlled. - Sliding scale insulin (9) Paroxysmal atrial fibrillation: NSR since admission. (10) Asthma: Not in exacerbation. - Cont bronchodilators (11) Hypertension: BP presently 120/75. - Holding all home anti-hypertensives due to low or low-normal BPs. (12) Chronic venous insufficiency: [facility] for chronic venous stasis ulcers & has seen Dr. Benítez in the past for vascular studies as well. - Restarted diuretics on 12/26 - Will need to continue Wound Care as outpatient. (13) Severe protein-calorie malnutrition: At least 40kg weight loss from 04/2019 to present, though it is intentional per friend, Zenon. (14) DVT prophylaxis: Eliquis - Discussed with Dr. Benítez as above Admission and Anticipated Discharge Date Admission Date: December 20, 2019 Subjective Doing fairly well today overall. Legs are still swollen, but improving slightly. No major erythema or warmth today. Reports no fevers/chills, chest pain, shortness of breath, abdominal pain, nausea, or vomiting. Physical Exam Constitutional: WD/WN, vitals as above Eyes: EOM intact bilaterally; no conjunctival abnormality ENMT: external ear and nose normal, oropharynx normal Neck: trachea midline, no thyromegaly normal visual inspection Respiratory: normal respiratory effort, lungs clear to auscultation no respiratory distress Cardiovascular: RRR, no murmur, no edema Gastrointestinal (Abdomen): Inspection/Auscultation: abdomen normal to inspection; abdomen not distended Musculoskeletal: no cyanosis or clubbing, extremities motor strength 5/5 Skin: + ulcer (Several shallow ulcers with venous stasis changes.) Neurologic: moves all extremities and awake Psychiatric: Orientation: alert, oriented to person and cooperative Results & Data Results & Data ([facility]) Vital Signs (Past 12 Hours) Vital Signs Temp Pulse Resp BP BP Pulse Ox 12/28/19 15:21 36.8 C 74 20 122/76 96 12/28/19 12:03 36.9 C 86 19 122/70 94 12/28/19 07:50 36.7 C 69 18 133/79 95 PG Care Time/CCT Total # of Minutes Spent Total Time Spent with Patient: Total time spent is greater than 50% in coordination of care (as documented) at patient's floor/unit and/or counseling patient: Coding Level of Care Code 42563 Subseq Hosp Care Lvl 2 Diagnoses Deep vein thrombosis I82.409 Cellulitis of left lower extremity L03.116 Cholangitis K83.09 Acute cholecystitis K81.0 Sepsis A41.9; R65.20; N17.0 Sepsis type: sepsis due to unspecified organism Sepsis acute organ dysfunction status: with acute organ dysfunction Severe sepsis acute organ dysfunction type: acute renal failure Acute renal failure type: with acute tubular necrosis Severe sepsis shock status: unspecified Acute renal failure due to tubular necrosis N17.0 Sacral decubitus ulcer, stage II L89.152 IDDM (insulin dependent diabetes mellitus) E11.9; Z79.4 Paroxysmal atrial fibrillation I48.0 Asthma J45.909 Hypertension I10 Chronic venous insufficiency I87.2 Severe protein-calorie malnutrition E43 DVT prophylaxis Z29.9 (1) Sepsis Sepsis type: sepsis due to unspecified organism Sepsis acute organ dysfunction status: with acute organ dysfunction Severe sepsis acute organ dysfunction type: acute renal failure Acute renal failure type: with acute tubular necrosis Severe sepsis shock status: unspecified Qualified Code(s): A41.9 - Sepsis, unspecified organism; R65.20 - Severe sepsis without septic shock; N17.0 - Acute kidney failure with tubular necrosis
[2019-12-29 07:50] LABS: BUN Creatinine Ratio 16.6 (10-20); Calcium 9.9 mg/dl (8.5-10.1); Creatinine Clr Calc Pharmacy 73.2 ml/min; Est GFR (African American) 79.9; Est GFR (Non-African American) 68.9; Magnesium 1.9 mg/dl (1.8-2.4); Potassium 3.4 mmol/L (3.5-5.1)
[2019-12-29] MEDS: metroNIDAZOLE 500 MG TAB PO SCH ×2 (08:33→13:20)
[2019-12-29] MEDS: APIXABAN 2.5 MG TAB PO SCH (08:33)
[2019-12-29] MEDS: FUROSEMIDE 80 MG TAB PO SCH (08:33)
[2019-12-29] MEDS: metOLazone 2.5 MG TABLET PO SCH (08:33)
[2019-12-29] MEDS: INSULIN ASPART 100 UNITS/ML 3 ML PEN SC SCH ×2 (08:33→11:47)
[2019-12-29] MEDS: PANTOprazole 40 MG TAB PO SCH (08:33)
[2019-12-29] MEDS: CIPROFLOXACIN 500 MG TAB PO SCH (08:34)
[2019-12-29] MEDS: DOCUSATE SODIUM/SENNA 50/8.6MG TAB PO SCH (08:35)
--- NOTE | 2019-12-29 17:13 | Discharge Summary ---
Date of Service December 29, 2019 Admission HPI Per Admitting Provider The patient is a 79-year-old male with a past medical history including dementia, paroxysmal atrial fibrillation, asthma, peripheral neuropathy, hypertension, venous stasis ulcers of bilateral lower extremities, chronic v enous insufficiency, diabetes mellitus, lumbar spinal stenosis, CHF, cardiac dysrhythmia, DVT and left pleural effusion. He presents to the emergency department with the above symptoms. His history is somewhat limited, due to underlying dementia. He reports to me that his lower extremity wounds are related to blebs that he mechanically broke open, and was not related to trauma related to tractor equipment as was reported by others. Work-up in the emergency department included laboratory significant for: Creatinine of 3.2, faintly heme positive stools, CT of head, abdomen and pelvis all negative for acute process. He was started on broad-spectrum antibiotics in the ED, vancomycin IV, cefepime IV and Flagyl IV. He is noted to be allergic to penicillins, and therefore he will be made on the same antibiotic treatment regimen. The patient also did describe some burning in his sacral/intergluteal area, it was noted to have an early stage II decubitus ulcer. Principal Diagnosis Cholecystitis Deep vein thrombosis Discharge Exam Constitutional WD/WN, vitals as above Eyes EOM intact bilaterally; no conjunctival abnormality ENMT external ear and nose normal, oropharynx normal Neck trachea midline, no thyromegaly normal visual inspection Respiratory normal respiratory effort, lungs clear to auscultation no respiratory distress Cardiovascular RRR, no murmur, no edema Gastrointestinal (Abdomen) Inspection/Auscultation: abdomen normal to inspection; abdomen not distended Musculoskeletal no cyanosis or clubbing, extremities motor strength 5/5 Skin + ulcer (Several shallow ulcers with venous stasis changes.) Neurologic moves all extremities and awake Psychiatric Orientation: alert, oriented to person and cooperative Discharge Data Allergies Allergy/AdvReac Type Severity Reaction Status Date / Time Penicillins Allergy Unknown RASH Verified 08/07/19 13:44 Consultations 12/20/19 19:53 ED Decision to Admit Stat 12/20/19 23:47 Consult Case Management - Discharge Planning Routine 12/21/19 21:41 Consult General Surgery Routine 12/21/19 21:42 Consult Gastroenterology Routine 12/26/19 14:50 Consult Vascular Surgery Routine Procedures Performed Operation Date: 12/22/19 13:50 Actual Procedures p Esophagogastroduodenoscopy, Endoscopic Retrograde Cholangiopancreatogram, Biliary and Pancreatic Stent Placement(Not Applicable) - Regina bruno Laparoscopic Cholecystectomy(Not Applicable) - Van Perez MD, FACS Ordered Studies 12/20/19 18:00 CT head/brain wo con Stat 12/20/19 19:01 CT abd pelvis wo con Stat 12/21/19 08:30 US abdomen limited Routine 12/21/19 15:48 MR MRCP Urgent 12/22/19 09:00 FL ERCP biliary ductal Routine 12/25/19 17:22 US venous doppler LE BI Routine Hospital Course (1) Deep vein thrombosis: Doppler on 12/24 showed likely acute on chronic DVT with mostly non- occlusive, but some areas of complete occlusion. This explains his ongoing leg swelling. - Consulted Dr. Benítez who had participated in his vascular evaluation previously. - Will restart home furosemide and metolazone, started apixaban - Added JAMESON hose today. Encourage getting out of bed. - Will need to follow up with [facility] for follow up. Encouraged follow up with Dr. Louis to make sure he is not getting over-diuresis. Encouraged compression stockings. (2) Cellulitis of left lower extremity: Mild-moderate. The friend feels that the ulceration on the LLE came from an incident outside at his home that involved a tractor and hauling some form of metal. Received TDaP vaccine here. - Switched his abx to PO -> On Cipro/Flagyl for GI issues; this should cover possible infection. At this point, doesn't look acutely infected and is more chronic looking. (3) Cholangitis: ERCP on 12/22/2019. Several CBD stones with visible purulent fluid. S/p pancreatic duct stent and CBD stent by Dr. Galvez. - Will need outpatient repeat ERCP to remove stents. - Needs 2-weeks of abx to cover for cholangitis. (End date: 01/04/2020) - Discharged on Cipro-Flagyl x 6 more days. (4) Acute cholecystitis: S/p lap shanell on 12/[address] Perez. Gross appearance of gall bladder during surgery suggestive of acute/chronic cholecystitis. - Continue abx as above - Follow up with surgery (5) Sepsis: Present on admission. 2nd to LLE cellulitis along with acute cholecystitis as well as cholangitis given the ERCP findings. - Continue abx as above (6) Acute renal failure due to tubular necrosis: ATN is sepsis-associated. Baseline Cr is 1.2, up to 3.0 on admission. - Cr now back at baseline. (7) Sacral decubitus ulcer, stage II: - Wound care consulted -> Conservative measures. (8) IDDM (insulin dependent diabetes mellitus): Per and friend/"son" he lost 100 pounds over the last year and no longer is taking ANY insulin at home. A1c was 7.2% this admission. c/w T2DM but diet controlled. - No need for medication on discharge. (9) Paroxysmal atrial fibrillation: NSR since admission. (10) Asthma: Not in exacerbation. - Cont bronchodilators (11) Hypertension: BP presently 120/75. - Holding all home anti-hypertensives due to low or low-normal BPs. (12) Chronic venous insufficiency: [facility] chronic venous stasis ulcers & has seen Dr. Benítez in the past for vascular studies as well. - Restarted diuretics on 12/26 - Will need to continue Wound Care as outpatient -> Home health will do Wound Care. (13) Severe protein-calorie malnutrition: At least 40kg weight loss from 04/2019 to present, though it is intentional per friend, Zenon. (14) DVT prophylaxis: Eliquis - Discussed with Dr. Benítez as above Total Time Total Time Spent Total Time Spent (In Minutes): 35 Discharge Plan Discharge Items Patient Disposition: Home - Home Health Services Reason For Visit: HYPOTENSION,B/L LE CELLULITIS,SACRAL DECUB Discharge Diagnosis: acute/ chronic cholecystitis Activity: Per Instructions section Lifting: No more than 10 pounds Bathing Comment: may shower; no soaking in tubs Exercise/Sports: Wait until after follow-up appointment Driving/Machine Use: do not resume driving while taking narcotics for pain Non-emergency contact: Primary Care Provider and Surgeon Call non-emergency contact if: you have any medication questions, your symptoms worsen, your pain is not controlled, your pain is worsening, you have a fever, your temperature is above 101.5, your wound has increased redness, your wound has increased drainage and your wound pain has increased Follow-up/Referrals: Van Perez MD, FACS [Physician] - 01/10/20 9:45 am Giorgio Louis MD [Primary Care Provider] - 01/05/20 1:00 pm Diet: Heart Healthy Addtl Attending Provider Instructions: Mr. Munoz, We found some blood clots in your legs. We started you on a blood thinner (Eliquis/apixaban) to help dissolve these clots and hopefully help relieve the swelling in your legs. It is super important that you continue taking the Lasix and metolazone as prescribed by Dr. Louis. You should watch your weights and closely follow with him in regards to how to adjust the metolazone. You should also wear the compression stockings as much as possible, and especially while you are up and about. This will help your legs keep from getting fluid back. Please follow up with the [facility] doctors to see if there are any additional tests or treatment they want you to undergo. Finally, we held some of your blood pressure medications because your blood pressure was normal here, and we didn't want you to drop too low. Please follow up with Dr. Louis on this. It's possible that as you've lost weight you just don't need as much medication. However, it's possibly your blood pressure will go up after discharge in which case Dr. Louis can talk with you about restarting some of your medications. SPECIAL CARE INSTRUCTIONS FOR YOUR SURGERY: * Cover incisions and change daily for comfort/drainage. * May use ibuprofen for pain as tolerated. * Expect some swelling and bruising. Call your doctor if: * Temperature above 101 degrees * Pain not relieved by pain medicine ordered * There is increased drainage or redness from any incision * You have any unanswered questions or concerns [phone]. FOLLOW UP VISIT: If not already scheduled, please call the office for a follow-up visit. OFFICE PHONE NUMBER: Dr. Perez Office Please follow up in the office next week for suture removal Pending Studies at Discharge: No Stand-Alone Forms: My [employer], Smoking Cessation Medications and DC Order Prescriptions: New hydrocodone-acetaminophen [Paterson] 5-325 mg tablet 1 - 2 tab PO .q4-6h PRN (Reason: pain, for initial therapy, max 6 tabs per day) Qty: 15 RF: 0 ciprofloxacin HCl 500 mg Tablet 500 mg PO BID Qty: 12 RF: 0 metronidazole 500 mg Tablet 500 mg PO TID Qty: 18 RF: 0 Eliquis 2.5 mg Tablet 5 mg PO BID Qty: 60 RF: 0 Continued aspirin 81 mg tablet,delayed release (DR/EC) 81 mg PO DAILY RF: 0 furosemide 40 mg tablet 80 mg PO BID RF: 0 gabapentin 300 mg capsule 300 mg PO TID RF: 0 potassium chloride 10 mEq tablet extended release 10 meq PO DAILY RF: 0 nitroglycerin 0.6 mg tablet, sublingual 0.6 mg SL PRN PRN (Reason: Chest Pain) RF: 0 albuterol sulfate 90 mcg/actuation HFA aerosol inhaler 2 puffs inhalation Q4H PRN (Reason: short of breath) Qty: 1 RF: 0 rbigfrqyyhy-viefuwmdv-fuhqqspl [Trelegy Ellipta] 100-62.5-25 mcg blister with device 1 inh inhalation DAILY RF: 0 metolazone 2.5 mg tablet 2.5 mg PO Q2D RF: 0 ipratropium-albuterol 0.5 mg-3 mg(2.5 mg base)/3 mL solution for nebulization 3 ml INHALATION QID RF: 0 Discontinued spironolactone 25 mg tablet 25 mg PO DAILY RF: 0 diltiazem HCl 240 mg capsule,extended release 24 hr 240 mg PO DAILY RF: 0 labetalol 300 mg tablet 300 mg PO BID RF: 0 simvastatin 40 mg tablet 40 mg PO QPM RF: 0 metoprolol tartrate 100 mg tablet 100 mg PO BID RF: 0 acetaminophen [Tylenol Extra Strength] 500 mg Tablet 1,500 mg PO Q6H PRN (Reason: Pain) RF: 0 Novolin 70/30 U-100 Insulin 100 unit/mL (70-30) suspension 25 units SQ BID Qty: 0 RF: 0 Discharge Orders: Discharge Order (Routine); Ordered 12/29/19 Ordered By: Darrius Nolan/Other Patient Handouts: Hyperglycemia, Hypoglycemia, Cholecystectomy Laparoscopic Dc Admission Data Admit Date/Time: 12/20/19 22:06 Attending Provider: Darrius Castillo Admit Provider: Eladio Lorenzana Primary Care Provider: Giorgio Louis Other Providers: Van Perez ; Regina Galvez ; Darrius Castillo ; Ge Benítez Other Interventions: Discharge Summary Assessment (RN) Last Done: 12/29/19 13:21 DC Date/Time DO NOT enter until pt leaves facility: 12/29/19 14:24 Coding Level of Care Code D/C Day Management >30 mins Diagnoses Deep vein thrombosis I82.409 Cellulitis of left lower extremity L03.116 Cholangitis K83.09 Acute cholecystitis K81.0 Sepsis A41.9; R65.20; N17.0 Sepsis type: sepsis due to unspecified organism Sepsis acute organ dysfunction status: with acute organ dysfunction Severe sepsis acute organ dysfunction type: acute renal failure Acute renal failure type: with acute tubular necrosis Severe sepsis shock status: unspecified Acute renal failure due to tubular necrosis N17.0 Sacral decubitus ulcer, stage II L89.152 IDDM (insulin dependent diabetes mellitus) E11.9; Z79.4 Paroxysmal atrial fibrillation I48.0 Asthma J45.909 Hypertension I10 Chronic venous insufficiency I87.2 Severe protein-calorie malnutrition E43 DVT prophylaxis Z29.9
== END 2019-12-29 14:24 | disposition home health service (06) | DRG 853 ==
LOC: ED 17:29 → 2S 22:06 → SUATTDRO 22:06 → 2S 22:54